=== PATIENT | female | born 1965 | race Caucasian/White ===

== ENCOUNTER 2023-09-30 09:10 | Emergency (ER) | payer MEDICARE, SELFPAY ==
[2023-09-30 09:14] VITALS: BP 138/90
[2023-09-30 09:26] VITALS: BP 146/89
--- NOTE | 2023-09-30 09:50 | ED.GENMED ---
History of Present Illness
General
Chief Complaint: Dizziness
Source: patient
Exam Limitations: none
Time Seen by Provider: 09/30/23 09:28
Nursing documentation reviewed up to this point in time: agreed with
Travel History
Have you had any contact with someone who has COVID-19?: No
Do you have any symptoms of coronavirus? Fever > 100 degrees, chills, cough, shortness of breath, sore throat, loss of taste or smell, muscle aches, or headache?: No
History of Present Illness
History of Present Illness:
58-year-old female with medical history of high blood pressure and multiple mouth surgeries of the past few months presenting to the emergency department today with concerns of lightheadedness and generalized weakness and fatigue. She claims that
she has had multiple mouth surgeries to dental issues and denture placement over the past few months and is lost roughly 70 pounds in the last 6 to 7 months. She claims that she has been able to tolerate liquids but every time she tries to tolerate
foods she will vomit. She has seen her primary care doctor for this who told her to come to the ER. Denies seeing a GI doctor. Denies any chest pain shortness of breath no abdominal pain no changes in bowel movements no urinary symptoms.
Review of Systems
Review of Systems
Allergies reviewed?: Yes
All Other Systems: ROS reviewed and negative except as documented in HPI and ROS
Phy Exam
Physical Exam
Physical Exam:
GENERAL: Alert , in no apparent distress
EYE: pupils equal and reactive
NECK: Supple, no significant adenopathy.
ENT: o/p clr, mmm.
CARDIAC: Regular rate and rhythm .
LUNGS: Clear breath sounds bilaterally, no acute respiratory distress, no wheezes/rales/rhonchi
ABDOMEN: Soft, without focal tenderness, no r/g, no cvat
NEUROLOGICAL: Alert and oriented, no focal neuro deficits
SKIN: Warm and dry, skin intact.
MUSCULOSKELETAL: No edema, well perfused.
PSYCH: Normal and appropriate interaction.
Course
Orders/Labs/Results
Orders:
Orders
09/30/23 09:43
EKG [Electrocardiogram (*1)] Urgent
Reason for Study: Vertigo / Dizzy
0.9% Sodium Chloride 1000 ml [Nss] 1,000 ml IV BOLUS
Chest [CR Chest - 2 Views ] Urgent
Comment:
Reason For Exam: cough right sided pain
09/30/23 09:44
EKG- Treatment ONCE
09/30/23 10:02
Complete Blood Count/With Diff Urgent
09/30/23 10:57
Comprehensive Metabolic Panel Urgent
Lipase Urgent
Troponin I Urgent
09/30/23 12:08
0.9% Sodium Chloride 1000 ml [Nss] 1,000 ml IV BOLUS
09/30/23 12:46
Urinalysis Reflex To Culture Urgent
Date Specimen was Collected: 09/30/23
Time Specimen was Collected: 12:44
Abnormal Lab Results
09/30/23 09/30/23 09/30/23
10:02 10:57 12:46
MCH 36.2 H pg
(27.0-31.0)
MCHC 37.3 H g/dL
(33.0-37.0)
Absolute Lymphs (auto) 0.8 L 10^3/uL
(1.2-3.4)
Lymphocytes % 16.7 L %
(20.5-51.1)
Monocytes % 11.5 H %
(1.7-9.3)
Sodium 127 L mmol/L
(135-145)
Potassium 3.3 L mmol/L
(3.5-5.1)
Chloride 90 L mmol/L
(98-107)
Glucose 101 H mg/dl
(70-99)
AST 43 H U/L
(14-36)
Lipase 387 H U/L
(23-300)
Urine Ketones Trace A
(Negative)
Urine Glucose 1+ A
(Negative)
09/30/23 10:02
09/30/23 10:57
Vital Signs
Initial and Last Documented VS:
Initial Vital Signs
Temp Pulse Resp BP Pulse Ox
97.9 F 104 22 138/90 94
09/30/23 09:14 09/30/23 09:14 09/30/23 09:14 09/30/23 09:14 09/30/23 09:14
Last Documented Vital Signs
Temp Pulse Resp BP Pulse Ox
97.9 F 79 19 131/83 97
09/30/23 09:14 09/30/23 12:15 09/30/23 12:15 09/30/23 12:00 09/30/23 12:15
MDM/Problems Addressed
MDM/Problems Addressed:
The patient is a 58-year-old female generally well-appearing no acute distress normal vital signs during my assess. Patient is concerned that she has had lightheadedness generalized weakness fatigue progressing over the past 6 with decreased oral
intake secondary to feeling that she needs to vomit after eating. Has been able to drink fluids. She believes that this is secondary to multiple mouth surgeries that she has had over the past few months due to some dental issues. She has been on
Augmentin for the past week and a half or so after her most recent surgery. Labs indicating hyponatremia and hypochloremia 127 and 90 respectively. Patient was given 2 L of fluid here. Low levels likely due to dietary changes as an outpatient.
Patient is able to tolerate by mouth and will decrease sodium intake. Otherwise no emergent finding patient will follow closely with her primary care doctor and GI for ongoing GI issues. Return precautions given.
*Critical Care Note
Total Time (30-74mins, 75-104mins- exclusive of procedures): Not Applicable
ED Attending Note
-
Portions of this chart may have been created with voice recognition software.� Occasional wrong word or��sound alike� substitutions may have occurred due to the inherent limitations of voice recognition software.
Discharge Plan
Departure
Patient Disposition: Home (Routine Discharge)
Date of Disposition: 09/30/23
Time of Disposition: 14:16
Patient with high blood pressure during this ER visit?: No
Condition: Good
Covid-19: Not Applicable
Discharge Problem:
Hyponatremia, Decreased oral intake
Instructions: Hyponatremia (DC)
Referrals:
Cassandra Etienne CRNP [Family Provider] -
Kwan Muller MD [Active] - Follow up in 1 week
Activity Restrictions/Additional Instructions:
You came to the emergency department today with concern of generalized symptoms. You are found to have a low sodium and chloride. Please increase this in your diet and follow closely with your doctor and GI for further assessment and management.
Return to the emergency department for any worsening, new or concerning symptoms.
Interventions
Interventions:
*Risk Screen - Suicide Last Done: 09/30/23 09:14
*General Assessment Last Done: 09/30/23 09:14
*Neglect/Abuse Screening Last Done: 09/30/23 09:14
*ED COVID-19 Vaccine History Last Done: 09/30/23 11:11
ED- Pulmonary Assessment Last Done: 09/30/23 11:11
ED- Neurological Assessment Last Done: 09/30/23 11:11
ED- Cardiac Assessment Last Done: 09/30/23 11:11
[2023-09-30 10:20] LABS: % Basophils 0.6 % (0-2); % Eosinophils 0.8 % (0-6); % Immature Granulocytes 0.4 % (0-0.5); % Lymphocytes 16.7 % (20.5-51.1); % Monocytes 11.5 % (1.7-9.3); Absolute Lymphocytes 0.8 10^3/uL (1.2-3.4); Absolute Monocytes 0.6 10^3/uL (0.1-0.6); Absolute Neutrophils 3.4 10^3/uL (1.4-6.5); Hematocrit 42.9 % (37.0-47.0); Mean Corp Hgb Conc. 37.3 g/dL (33.0-37.0); Mean Corpuscular Hgb 36.2 pg (27.0-31.0); Mean Corpuscular Volume 97.1 fL (81.0-99.0); Mean Platelet Volume 9.3 fL (7.4-10.4); Nucleated Red Blood Cells % 0 %; Platelet Count 155 10^3/uL (130-400); Red Blood Cell Count 4.42 10^6/uL (4.20-5.40); Red Cell Dist. Width 12.3 % (11.5-14.5); White Blood Cell Count 4.9 10^3/uL (4.8-10.8)
[2023-09-30 11:00] VITALS: BP 159/101
[2023-09-30] MEDS: NSS 1000 IV ×2 (11:07→14:21)
[2023-09-30 11:09] VITALS: BMI 24.3
[2023-09-30 11:24] LABS: ALT (SGPT) 32 U/L (0-35); AST (SGOT) 43 U/L (14-36); Albumin 4.1 g/dl (3.5-5.0); Alkaline Phosphatase 103 U/L (38-126); Blood Urea Nitrogen 10 mg/dl (7-17); Calcium 9.4 mg/dl (8.4-10.2); Carbon Dioxide 26 mmol/L (22-30); Chloride 90 mmol/L (98-107); Estimated Creatinine Clearance 114 ml/min; Glucose 101 mg/dl (70-99); Lipase 387 U/L (23-300); Potassium 3.3 mmol/L (3.5-5.1); Sodium 127 mmol/L (135-145); Total Bilirubin 1.2 mg/dl (0.2-1.3); eGFR > 60.00
[2023-09-30 11:36] LABS: Troponin I < 0.012 ng/ml
[2023-09-30 12:00] VITALS: BP 131/83
[2023-09-30 13:05] LABS: Urine Albumin Negative (Neg - Trace); Urine Bilirubin Negative (Negative); Urine Character Clear (Clear); Urine Color Straw; Urine Glucose 1+ (Negative); Urine Ketone Trace (Negative); Urine Leukocyte Negative (Negative); Urine Nitrite Negative (Negative); Urine Occult Blood Negative (Negative); Urine Urobilinogen Negative (Neg - 1+); Urine pH 6.5 (5.0-9.0)
[2023-09-30 14:11] VITALS: BP 134/98
[2023-09-30 15:00] VITALS: BP 134/73
== END 2023-09-30 15:38 | disposition home or self-care (01) ==
LOC: EMR 09:10
PROVIDERS: Physician Assistant; EMERGENCY PHYSICIAN Emergency Medicine; FAMILY PHYSICIAN Nurse Practitioner
DX: E87.1 Hypo-osmolality and hyponatremia (principal); R42 Dizziness and giddiness; R53.1 Weakness; R11.10 Vomiting, unspecified; R63.4 Abnormal weight loss; I10 Essential (primary) hypertension; Z98.890 Other specified postprocedural states
CPT/HCPCS: 99284; 96360; 96361; 71046; 80053; 81003; 83690; 84484; 85025; 93005

== ENCOUNTER 2024-04-24 09:48 | Inpatient (IN) | payer MEDICARE, SELFPAY ==
[2024-04-17] VITALS (8 sets, daily range): BP systolic 130–183; BP diastolic 81–123; BMI 17.9
[2024-04-17] MEDS: NSS 1000 IV (11:21)
[2024-04-17 11:40] LABS: % Basophils 0.2 % (0-2); % Eosinophils 0.9 % (0-6); % Immature Granulocytes 0.4 % (0-0.5); % Lymphocytes 19.7 % (20.5-51.1); % Monocytes 6.6 % (1.7-9.3); % Neutrophils 72.2 % (42.2-75.2); Absolute Eosinophils 0.1 10^3/uL (0-0.7); Absolute Lymphocytes 1.1 10^3/uL (1.2-3.4); Absolute Monocytes 0.4 10^3/uL (0.1-0.6); Absolute Neutrophils 3.9 10^3/uL (1.4-6.5); Hematocrit 41.9 % (37.0-47.0); Hemoglobin 15.5 g/dL (12.0-16.0); Mean Corpuscular Hgb 37.5 pg (27.0-31.0); Mean Corpuscular Volume 101.5 fL (81.0-99.0); Mean Platelet Volume 8.8 fL (7.4-10.4); Nucleated Red Blood Cells % 0 %; Platelet Count 175 10^3/uL (130-400); Red Blood Cell Count 4.13 10^6/uL (4.20-5.40); Red Cell Dist. Width 12.4 % (11.5-14.5); White Blood Cell Count 5.3 10^3/uL (4.8-10.8)
--- NOTE | 2024-04-17 11:57 | ED.GENMED ---
History of Present Illness
General
Chief Complaint: Weakness
Source: patient
Exam Limitations: none
Time Seen by Provider: 04/17/24 11:25
Nursing documentation reviewed up to this point in time: agreed with
History of Present Illness
History of Present Illness:
Patient presents to ED secondary to generalized weakness. Patient states that she asked her son to call 911, as she was too weak to stand up. Patient does report drinking alcohol daily and smoking. Patient states that she has not been eating well
nor drinking enough fluids. Patient states that she is currently 'working things out', so that she could feel better. Patient does not wish to divulge any other specific information at this time. However, patient denies any suicidal or homicidal
ideation. Patient reports profound generalized weakness along with decreased oral intake, and she does not have much appetite at home. Denies fever or chills. Denies nausea, vomiting, or diarrhea. Denies chest pain or shortness of breath.
Patient does report chronic coughing, but states that it has not worsened. Denies recent travel. Denies sick contact.
Review of Systems
Review of Systems
Allergies reviewed?: Yes
All Other Systems: ROS reviewed and negative except as documented in HPI and ROS
Constitutional: Reports no symptoms; Denies fever or chills
Respiratory: Reports cough; Denies trouble breathing
Cardiac: Reports no symptoms
ABD/GI: Reports anorexia; Denies abdominal pain, nausea, vomiting or diarrhea
Musculoskeletal: Reports no symptoms
Skin: Reports no symptoms
Neurological: Reports weakness; Denies headache
Phy Exam
Physical Exam
Physical Exam:
Physical Exam
General: mild distress, not acutely ill. afebrile. thin appearing, unkempt.
Head: nc/at. eomi
Neck: supple. no meningeal signs.
Heart: s1/s2 regular rate and rhythm, no murmur. equal radial pulses.
Lungs: no acute respiratory distress. clear bilaterally
Abdomen: normal bowel sounds. not tender.
Neuro: alert and oriented. no focal neurological deficits
Skin: no rash
Psychiatric: well kept. interactive and cooperative
Extremities: no edema. no calf tenderness.
Course
Orders/Labs/Results
Orders:
Orders
04/17/24 11:21
0.9% Sodium Chloride 1000 ml [Nss] 1,000 ml IV BOLUS
04/17/24 11:22
Complete Blood Count/With Diff Urgent
04/17/24 11:31
Add On- LAB Urgent
Tests Added?: magnesium, TSH to reflex free T4, alcohol, cpk
04/17/24 11:32
CR Chest - 2 Views Urgent
Comment:
Reason For Exam: cough
04/17/24 11:44
Alcohol Urgent
Comprehensive Metabolic Panel Urgent
Creatine Phosphokinase Urgent
Magnesium Urgent
TSH Reflex To Free T4 Urgent
04/17/24 12:31
Magnesium Oxide 500 mg PO NOW STA
04/17/24 13:45
CT Head W/o Iv Contrast Urgent
Comment:
Reason For Exam: ataxia
0.9% Sodium Chloride 1000 ml [Nss] 1,000 ml Mvi, Adult [Multivitamin] 10 ml Thiamine Injection 100 mg IV 100 mls/hr
04/17/24 15:18
Admit/Transfer Patient As Directed
Co-Sign Provider:
Level of Care: Observation services
Assign to:: Telemetry
Physician / Group: Cherri
Diagnosis: amb dysfunction, etoh withdrawal
Reason for Telemetry: Other
Other Reason for Telemetry: etoh withdrawal
Date to Stop Telemetry: 04/19/24
Time to Stop Telemetry: 11:00
04/17/24 15:19
PRN Pain Medication Management As Directed
May give lesser potent ordered pain med per pt: Yes
preference::
Protocol:: Medication orders for pain may be administered in a
manner that supports deferring to patient preference
when the pt is:
- Requesting an ordered lesser potent pain medication.
Least to most potent pain medications are defined
as: acetaminophen < NSAID < tramadol < opioids
(morphine, oxycodone, hydromorphone).
- Requesting a lesser dose of the same medication IF
ORDERED.
- Requesting a less intrusive route of administration
if both routes are prescribed by the provider (PO <
IV).
04/17/24 15:21
Code Status As Directed
Resuscitation Status: Full Code
04/17/24 15:32
HydrALAZINE [Apresoline] 10 mg IV Q6HPRN PRN
04/17/24 16:39
0.9% Sodium Chloride [Nss (Preservative Free)] See Protocol IV PRN PRN
Amlodipine [Norvasc] 10 mg PO DAILY
Bisacodyl [Dulcolax] 10 mg RECTAL [id number] PRN
Docusate W/Senna [Senokot-S] 1 tablet PO BIDPRN PRN
FOLic ACID [Folvite] 1 mg PO DAILY
FOLic ACID [Folvite] 1 mg 0.9% Sodium Chloride 50 ml [Nss] 50 ml IV DAILYPRN
Lactated Ringers [Lr] 1,000 ml IV 80 mls/hr
Lorazepam [Ativan] 1 mg IV Q1HPRN PRN
Lorazepam [Ativan] 1 mg PO Q2HPRN PRN
Lorazepam [Ativan] 2 mg IV Q1HPRN PRN
Losartan [Cozaar] 100 mg PO DAILY
Ondansetron Injectable [Zofran] 4 mg IV Q6HPRN PRN
Pantoprazole [Protonix] 40 mg PO DAILY
Polyethylene Glycol Powder [Miralax] 17 grams PO DAILYPRN PRN
04/17/24 16:39
Case Management Consult ONCE
Case Management Consult: Alcohol Withdrawl Risk
DIETARY CONSULT Routine
Reason for Consult: Nutrition support, possible refeeding guidelines
PSYCHIATRY CONSULT Routine
Consulting Provider: González Ponce
Was physician already notified: Yes
Reason for consult: etoh abuse, depression
Urinalysis Reflex To Culture Urgent
Urine Drug Abuse Screen Urgent
Activity As Directed
Activity Level: With Assistance
MSAS SCORE As Directed
MSAS Score 0-4: Repeat MSAS every 2 hours until 0-4 for three consecutive assessments, then every 4 hours x 48
hours.
MSAS Score 5-7: For MILD withdrawl symptoms. Repeat MSAS and RASS every 2 hours
MSAS Score 8-11: For MODERATE withdrawal symptoms. Repeat MSAS and RASS every 1 hour. Consider ICU or IMU
level of care.
MSAS Score > 11: For SEVERE withdrawal symptoms. Repeat MSAS and RASS every 1 hour. Notify provider, consider
ICU level of care.
MSAS Additional Instructions: If no improvement or no decrease in score from severe to moderate within 12
hours, consult psychiatry
MSAS Notify Provider: Notify provider if patient requires more than 10 mg of Lorazepam in eight hour period.
Neurological Checks As Directed
Frequency: Per unit guidelines
Vital Signs As Directed
Frequency: Per unit guidelines
Ot Eval And Treat Routine
Pt Eval And Treat Routine
Activity Level: With Assistance
DX Deep Vein Thrombosis Video Routine
04/17/24 18:00
Enoxaparin Sodium [Lovenox] 40 mg SC QPM
04/17/24 20:00
Magnesium Oxide 500 mg PO BID
Thiamine Injection 200 mg IV Q12
04/17/24 22:00
Buspirone [Buspar] 7.5 mg PO TID
04/18/24 Breakfast
Regular
At Your Request: Full Participation
04/18/24 06:10
Ferritin IN AM
Vitamin B12 IN AM
04/18/24 08:00
Bupropion(24Hr)Extended Releas [WELLBUTRIN XL (24 hour extended release)] 150 mg PO DAILY
Ergocalciferol [Drisdol (Vitamin D2)] 50,000 units PO WEEKLY
Escitalopram Oxalate [Lexapro] 10 mg PO DAILY
Loratadine [Claritin] 10 mg PO DAILY
Multivitamin [Theragran] 1 tablet PO DAILY
04/19/24 11:00
DC Protocol for Telemetry ONCE
04/20/24 20:00
Thiamine HCl [Vitamin B1] 100 mg PO BID
Abnormal Lab Results
04/17/24 04/17/24
11:22 11:44
RBC 4.13 L 10^6/uL
(4.20-5.40)
MCV 101.5 H fL
(81.0-99.0)
MCH 37.5 H pg
(27.0-31.0)
Absolute Lymphs (auto) 1.1 L 10^3/uL
(1.2-3.4)
Lymphocytes % 19.7 L %
(20.5-51.1)
Chloride 97 L mmol/L
(98-107)
Carbon Dioxide 21 L mmol/L
(22-30)
Magnesium 1.4 L mg/dl
(1.6-2.3)
Total Bilirubin 1.6 H mg/dl
(0.2-1.3)
AST 86 H U/L
(14-36)
ALT 36 H U/L
(0-35)
Creatine Kinase 27 L U/L
(30-135)
04/17/24 11:22
04/17/24 11:44
Vital Signs
Initial and Last Documented VS:
Initial Vital Signs
Pulse Resp
91 15
04/17/24 11:05 04/17/24 11:05
Last Documented Vital Signs
Temp Pulse Resp BP Pulse Ox
97.7 F 70 18 119/77 97
04/18/24 07:00 04/18/24 07:00 04/18/24 07:00 04/18/24 07:00 04/18/24 07:00
MDM/Problems Addressed
MDM/Problems Addressed:
History and exam concerning for significant dehydration, likely secondary to poor oral intake along with continual alcohol use. However, in light of ataxia noted after hydration, there is clinical concern for potential CVA versus Wernicke syndrome.
As such, will obtain CT head at this time, and patient will be admitted for further hydration and evaluation.
*Critical Care Note
Total Time (30-74mins, 75-104mins- exclusive of procedures): Not Applicable
ED Attending Note
-
Portions of this chart may have been created with voice recognition software.� Occasional wrong word or��sound alike� substitutions may have occurred due to the inherent limitations of voice recognition software.
Discharge Plan
Departure
Patient Disposition: Admit
Date of Disposition: 04/17/24
Time of Disposition: 14:41
Admit to: Telemetry
Presentation/result/management discussed w/ accepting MD/DO: Hospitalist
Discharge Problem:
Ataxia, Alcohol dependence
Interventions
Interventions:
*Risk Screen - Suicide Last Done: 04/17/24 11:03
*General Assessment Last Done: 04/17/24 11:04
*Neglect/Abuse Screening Last Done: 04/17/24 11:03
ED- Fall Risk Assessment Last Done: 04/17/24 11:08
*ED COVID-19 Vaccine History Last Done: 04/17/24 11:04
*Nursing Disposition Last Done: 04/17/24 16:34
ED- Cardiac Assessment Last Done: 04/17/24 11:09
ED- Neurological Assessment Last Done: 04/17/24 11:09
ED- Pulmonary Assessment Last Done: 04/17/24 11:09
Discharge Date and Time
Discharge Date/Time: 04/17/24 16:43
[2024-04-17 12:27] LABS: ALT (SGPT) 36 U/L (0-35); AST (SGOT) 86 U/L (14-36); Albumin 3.5 g/dl (3.5-5.0); Alcohol None Detected; Alkaline Phosphatase 105 U/L (38-126); Blood Urea Nitrogen 16 mg/dl (7-17); Calcium 9.1 mg/dl (8.4-10.2); Carbon Dioxide 21 mmol/L (22-30); Chloride 97 mmol/L (98-107); Creatine Phosphokinase 27 U/L (30-135); Estimated Creatinine Clearance 80 ml/min; Glucose 84 mg/dl (70-99); Magnesium 1.4 mg/dl (1.6-2.3); Potassium 3.6 mmol/L (3.5-5.1); Sodium 135 mmol/L (135-145); Total Bilirubin 1.6 mg/dl (0.2-1.3); eGFR > 60.00
[2024-04-17] MEDS: MAGNESIUM OXIDE 500 MG PO ×2 (12:35→20:16)
[2024-04-17 12:55] LABS: TSH Reflex To Free T4 1.49 uIU/ml (0.47-4.68)
[2024-04-17] MEDS: MULTIVITAMIN 1011 ML IV (14:39)
[2024-04-17] MEDS: MULTIVITAMIN 1011 MG IV (14:39)
--- NOTE | 2024-04-17 14:39 | PHANOTE ---
med rec tech(04/17/24)-Attempted to interview patient, but she does not know her medications. She did states she takes all her medications in the morning. Called spouse, he was also unable to confirm medications. Used pharmacy records to create med
list, unable to confirm due to lack of [facility] records.
--- NOTE | 2024-04-17 15:03 | HPS.HSE ---
Family Physician
-
Family Physician: NOT KNOW UNKNOWN - PT DOES
Chief Complaint
-
Weakness and gait instability, worsening recently; alcohol concerns
History of Present Illness
58yo F with PMH ETOH abuse, Anxiety/Depression, HTN, Tobacco abuse who presents to ER with complaint of weakness ongoing for months but worsening more recently. Pt lives at home with her son and uses a walker/cane for ambulation. She reports
increasing gen weakness in LE with associated decreased PO intake. Denies actual falls or injuries but states 'she has been careful.' Pt reports worsening depression and generalized confusion, 'my mind is hazy.' Pt does drink about 3-4/7 days a week
approximately 3 glasses of wine per day, with last drink suspected last night. She does endorse interest in quitting. Denies fever, chills, orthostatic complaint, chest pain, palps, wheezing, cough, abd pain, n/v/d/c, dysuria, calf or leg pain.
Pt also cannot recall her medications, but states she has only been taking her antihypertensives, denying any recent med changes.
ER course: Presents with HR 91->77, BP 183/108, other V.S.S. CBC wnl, Hgb 15.5, MCV 101.8. BUN/Cr 16/0.7, Mag 1.4, AST/ALT 86/36, Tbili 1.6. S/P banana bag, 1LNS, and Magox 500mg PO in ER.
Medical History
Past Medical History
Past Medical History: Reports Other (ETOH abuse, Anxiety/Depression, HTN, Tobacco abuse)
Past Surgical History: Reports Other (multiple oral surgeries (cannot further describe))
Social History
Tobacco: Smoker (1/2 PPD x ~40 yrs)
Alcohol: Daily (3-4 days per week, approx 3 glasses of wine per day)
Drug: Marijuana
Living: With Family (son)
Family History
Family History: Other (Father ; does not know recall any pertinent history. )
Allergies / Home Medications
Allergies reflects when Allergies were last updated in [employer].
Home Medications with original date entered in [employer]
Allergy/Medication List:
Allergies
Allergy/AdvReac Type Severity Reaction Status Date / Time
No Known Allergies Allergy Verified 04/17/24 10:59
Home Medications
amlodipine 10 mg tablet 10 mg PO DAILY 04/17/24
bupropion HCl 150 mg 24 hr tablet, extended release 150 mg PO DAILY 04/17/24
buspirone 7.5 mg tablet 7.5 mg PO TID 04/17/24
ergocalciferol (vitamin D2) 1,250 mcg (50,000 unit) capsule (Vitamin D2) 1,250 mcg PO QWEEK 04/17/24
escitalopram oxalate 10 mg tablet 10 mg PO DAILY 04/17/24
fexofenadine 180 mg tablet 180 mg PO DAILY 04/17/24
losartan 100 mg tablet 100 mg PO DAILY 04/17/24
pantoprazole 40 mg tablet,delayed release 40 mg PO DAILY 04/17/24
Review of Systems
-
A 12 point ROS was completed and negative except as noted: Yes
Physical Exam
Vital Signs
Vital Signs
Temp Pulse Resp BP Pulse Ox
98.8 F 77 15 183/108 98
04/17/24 11:08 04/17/24 13:00 04/17/24 13:00 04/17/24 13:00 04/17/24 11:09
Physical Exam
General: Well Developed, Well Nourished and No Apparent Distress
HEENT: NormoCephalic, Moist mucous membranes and Atraumatic
Respiratory: Clear
Cardiac: S1/S2 and Regular Rhythm; No Murmur or Rub
GI: Soft, Non Tender, Non Distended and Normal Bowel Sounds; No Organomegaly
Rectal: Deferred by Provider
Genito-urinary: No costovertebral tender; No Moran
Musculoskeletal: No Clubbing, No Cyanosis and No Edema
Skin: No Rash
Neuro: Awake, Alert, Oriented, No Motor Deficits, No Sensory Deficits and Other (+horizontal nystagmus. No tongue deviation. Uvula midline. Finger to nose mildly diminished symmetrically. MSK 5/5 throughout. Slow to respond with speech easily
understandable ); No Facial Droop
Hematologic/Lymphatic: No Lymphadenopathy
Psych: Calm and Depressed
Laboratory Results
-
04/17/24 11:22
04/17/24 11:44
Laboratory Results
Total Bilirubin 1.6 mg/dl (0.2-1.3) H 04/17/24 11:44
AST 86 U/L (14-36) H 04/17/24 11:44
ALT 36 U/L (0-35) H 04/17/24 11:44
Alkaline Phosphatase 105 U/L (38-126) 04/17/24 11:44
Impression/Plan
-
Ambulatory Dysfunction
- Pt denies any falls or traumatic injuries. Uses walker/cane at home
- CT brain with mild diffuse cerebral and cerebellar atrophy, no acute findings
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
- Basic labs relatively unremarkable. TSH wnl. Check B12 levels noting macrocytosis.
- Check UA with reflex for completeness
- Defer MRI testing as this time
- Check orthostatics. Start LR @ 80cc/hr x 1L
- PT/OT consult
- CM consult
Alcohol Abuse
- Drinking 3-4 days per week, 3 glasses of wine per day, last drink 04/16 night
- ETOH level (-) on admission
- Suspect ETOH contributing to global cerebellar dysfunction and problem above
- Cessation discussed. Pt is agreeable
- MV/FA/Thiamine. Ativan per [facility] protocol
- Psych and CM consult
Elevated LFTs
- Tbili 1.6, AST/ALT 86/36. CPK wnl
- Likely alcoholic hepatitis.
- Check viral hepatitis panel for completeness
- Trend with IVF.
Hypomagnesemia - Mag 1.4, Replete and trend.
Macrocytosis
- Hgb 15.5 g/dL. MCV 101.8.
- Check iron studies, b12, folate
Anxiety/Depression
- Reports increasing depression, not taking her medications
- Resume home lexapro, wellbutrin, buspirone
- Consult Psych
Uncontrolled HTN
- BP 183/108, likely exacerbated by withdrawal effect
- Restart amlodipine 10mg daily and losartan 100mg daily, will dose now
- Add prn hydralazine SBP > 170mmHg considering additional agents as needed
Diet: Regular
DVT Ppx: Lovenox
Code Status: Full
--- NOTE | 2024-04-17 16:21 | CM ---
CM reviewed patient's chart. Spoke with patient at bedside. CM introduced self and role. Patient is somewhat forgetful and slow to respond.
PCP: Dr. Contreras Winston
Pharmacy: [facility] in [facility]
Living situation: Patient lives with her and son. She lives in a multi-level home. 2 steps, landing and 1 step to enter. She has her mom for support as well.
Finances: Patient denies any social insecurities. She is able to afford her housing, clothing, medications, food, utilities and transportation. She works FT a [employer].
DME/Ambulation: Patient ambulates independently. She owns a walker.
Transportation: Patient's or son will provide transportation once she is discharged. Patient drives.
Agreeable to home health care?: Yes, if needed.
ANTICIPATED DISCHARGE DISPOSITION:
Home with and son, when medically cleared.
CM will continue to follow case and available for further assistance.
[2024-04-17] MEDS: COZAAR 100 MG PO (17:28)
[2024-04-17] MEDS: FOLVITE 1 MG PO (17:28)
[2024-04-17] MEDS: PROTONIX 40 MG PO (17:28)
[2024-04-17] MEDS: LOVENOX 40 MG SC (17:28)
[2024-04-17] MEDS: NORVASC 10 MG PO (17:28)
[2024-04-17] MEDS: NICODERM TRANSDERMAL TRANSDERM (17:33)
[2024-04-17] MEDS: THIAMINE INJECTION 200 MG IV (20:17)
[2024-04-17] MEDS: BUSPAR 7.5 MG PO (22:37)
[2024-04-18] VITALS (7 sets, daily range): BP systolic 79–119; BP diastolic 55–81; PULSE 80–94; BMI 17.9
[2024-04-18] MEDS: LR IV (01:00)
[2024-04-18] MEDS: LR 1000 IV (01:00)
--- NOTE | 2024-04-18 06:51 | W.PN.HOSP.TC ---
Today's Communication/Plan
-
MSAS protocol
thiamine supplementation
PT/OT
depression medications as per psych
Assessment / Plan
Assessment / Plan
Physical Exam
General: No acute distress appears comfortable at this time
HEENT: NormoCephalic, Moist mucous membranes and Atraumatic
Respiratory: Clear
Cardiac: S1/S2 and Regular Rhythm; No Murmur or Rub
GI: Soft, Non Tender, Non Distended and Normal Bowel Sounds; No Organomegaly
Musculoskeletal: No Clubbing, No Cyanosis and No Edema
Skin: No Rash
Neuro: AOx3 flat affect
Psych: Calm, Depressed
58F ETOH abuse anxiety/depression HTN Tobacco abuse
Ambulatory Dysfunction
- Uses walker/cane at home
- CT brain with mild diffuse cerebral and cerebellar atrophy, no acute findings
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
- Basic labs relatively unremarkable. TSH wnl. B12 wnl
- UA notes pyuria otherwise appears asymptomatic UT, follow up urine cx
- completed IVF
- PT/OT consult appreciated home health vs not needs
- CM consult
Alcohol Abuse
- Drinking 3-4 days per week, 3 glasses of wine per day, last drink 04/16 night
- ETOH level (-) on admission
- Suspect ETOH contributing to global cerebellar dysfunction and problem above
- ETOH cessation advised
- MV/FA/Thiamine. Ativan per CIWA protocol
- Psych and CM consult appreciated
Mild Elevated LFTs
- Tbili 1.6, AST/ALT 86/36. CPK wnl
- Likely alcoholic hepatitis.
- viral hepatitis panel result pending
- monitor
Hypomagnesemia
monitor and replete as necessary
Macrocytosis
b12, folate wnl
iron studies appreciated Iron non-deficient
Anxiety/Depression
- Reports increasing depression, not taking her medications
- Resume home lexapro, wellbutrin, buspirone
- Consult Psych appreciated
Uncontrolled HTN
-likely exacerbated by withdrawal effect
- cont amlodipine 10mg daily and losartan 100mg daily
-prn Hydralazine
BMI 17.9 underweight
encourage good nutrition oral intake
Diet: Regular
DVT Ppx: Lovenox
Code Status: Full
I spent a total of 50 minutes with the patient or on the floor. More than 50% of this time involved counseling and coordination of care.
Anticipated Discharge: 24 - 48 hours
Subjective/Interval History
-
Date of Service: April 18, 2024
No acute distress, reports feeling well. Appetite improved.
Objective Data
-
Labs:
Laboratory Results
04/18/24
06:10
Sodium Pending
Potassium Pending
Chloride Pending
Carbon Dioxide Pending
BUN Pending
Creatinine Pending
Glucose Pending
Calcium Pending
Total Bilirubin Pending
AST Pending
ALT Pending
Alkaline Phosphatase Pending
Vital Signs:
Vital Signs
Temp Pulse Resp BP Pulse Ox
97.4 F 80 15 113/73 98
04/18/24 03:33 04/18/24 03:33 04/18/24 03:33 04/18/24 03:33 04/18/24 03:33
I&O
04/16/24 04/17/24 04/18/24
06:59 06:59 06:59
Intake Total 1480 / 1480
Balance 1480 / 1480
[2024-04-18] MEDS: DRISDOL (VITAMIN D2) 50000 UNITS PO (07:49)
[2024-04-18] MEDS: PROTONIX 40 MG PO (07:49)
[2024-04-18] MEDS: BUSPAR 7.5 MG PO ×3 (07:49→21:50)
[2024-04-18] MEDS: CLARITIN 10 MG PO (07:49)
[2024-04-18] MEDS: WELLBUTRIN XL (24 hour extended release) 150 MG PO (07:49)
[2024-04-18] MEDS: NORVASC 10 MG PO (07:49)
[2024-04-18] MEDS: COZAAR 100 MG PO (07:50)
[2024-04-18] MEDS: FOLVITE 1 MG PO (07:50)
[2024-04-18] MEDS: LEXAPRO 10 MG PO (07:50)
[2024-04-18] MEDS: THIAMINE INJECTION 200 MG IV ×2 (07:50→20:16)
[2024-04-18] MEDS: MAGNESIUM OXIDE 500 MG PO ×2 (07:50→20:16)
[2024-04-18] MEDS: THERAGRAN 1 TABLET PO (07:51)
[2024-04-18] MEDS: NICODERM TRANSDERMAL TRANSDERM (07:55)
[2024-04-18 08:14] LABS: Vitamin B12 843 pg/ml (239-931)
[2024-04-18 09:14] LABS: ALT (SGPT) 35 U/L (0-35); AST (SGOT) 83 U/L (14-36); Albumin 3.2 g/dl (3.5-5.0); Alkaline Phosphatase 94 U/L (38-126); Blood Urea Nitrogen 11 mg/dl (7-17); Calcium 9.4 mg/dl (8.4-10.2); Carbon Dioxide 25 mmol/L (22-30); Chloride 99 mmol/L (98-107); Direct Bilirubin 0.6 mg/dl (0.0-0.4); Estimated Creatinine Clearance 94 ml/min; Glucose 65 mg/dl (70-99); Iron 91 ug/dl (37-170); Magnesium 1.6 mg/dl (1.6-2.3); Phosphorus 3.1 mg/dl (2.5-4.5); Potassium 3.7 mmol/L (3.5-5.1); Sodium 137 mmol/L (135-145); Total Bilirubin 1.4 mg/dl (0.2-1.3); Total Protein 6.4 g/dl (6.3-8.2); eGFR > 60.00
[2024-04-18 09:23] LABS: Percent Saturation 50 % (20-50); Total Iron Binding Capacity 182 ug/dl (265-497)
[2024-04-18 09:59] LABS: Urine Albumin Negative (Neg - Trace); Urine Bilirubin Negative (Negative); Urine Character Slightly Cloudy (Clear); Urine Color Yellow; Urine Glucose Negative (Negative); Urine Ketone Negative (Negative); Urine Leukocyte 2+ (Negative); Urine Nitrite Negative (Negative); Urine Occult Blood Trace (Negative); Urine Urobilinogen Negative (Neg - 1+); Urine pH 6.5 (5.0-9.0)
[2024-04-18 10:17] LABS: Amphetamines Negative (Negative); Barbiturates Negative (Negative); Benzodiazepines Negative (Negative)
[2024-04-18 10:18] LABS: Buprenorphine Negative (Negative); Cocaine Negative (Negative); Marijuana Negative (Negative); Methadone Negative (Negative); Methamphetamines Negative (Negative); Opiates Negative (Negative); Phencyclidine Negative (Negative); Tricyclic Antidepressants Negative (Negative)
[2024-04-18 10:19] LABS: Folate 11.6 ng/ml (2.76-20)
[2024-04-18 10:35] LABS: Urine Bacteria Many (Negative); Urine Red Blood Cell 0-2 /HPF (0-2); Urine White Cell >100 /HPF (0-5)
--- NOTE | 2024-04-18 11:16 | CM ---
Reviewed the chart notes and spoke with the patient at the bedside. The patient is admitted under observational status. The observation letter was provided and explained. The patient had no questions with regards to the letter.
--- NOTE | 2024-04-18 12:26 | W.PN.UPDATE ---
Update Note
Progress Note Update
Psychiatric Evaluation dictated.
Patient admitted with weakness and gait instability. She admits to being depressed worrying about paying bills as well as medical concerns. She admits to dysphoria and anhedonia but denies hopelessness or suicidal thoughts. Appetite is poor and she
has lost weight; at one point was 200 lb and now is 128 lb. She is not sure how recent the weight loss has been. She also has significant insomnia.
She reluctantly admits to drinking on daily basis perhaps 2-4 glasses of wine or equivalent; admits also to occasional use of marijuana bur present drug screen is negative.
Cognitively has poor general knowledge, poor calculation skills ans diminished immediate recall. CAT shows some cortical and cerebellar atrophy.
Medical W/U in progress
For now would continue present psychotropic meds.
Rehab for alcohol abuse would help but presently she is reluctant.
Will F/U
[2024-04-18] MEDS: LOVENOX 40 MG SC (17:00)
[2024-04-18 20:09] LABS: Hepatitis B Surface Antigen Negative (Negative)
[2024-04-18 20:27] LABS: Hepatitis B Core Ab, Total Negative (Negative); Hepatitis B Surface Antibody Negative; Hepatitis C Antibody Negative (Negative)
[2024-04-18 20:46] LABS: Hepatitis A Antibody, Total Negative (Negative)
[2024-04-19 03:00] VITALS: BP 110/74
[2024-04-19 06:25] LABS: Hematocrit 35.2 % (37.0-47.0); Mean Corp Hgb Conc. 36.9 g/dL (33.0-37.0); Mean Corpuscular Hgb 36.9 pg (27.0-31.0); Mean Platelet Volume 8.6 fL (7.4-10.4); Platelet Count 159 10^3/uL (130-400); Red Blood Cell Count 3.52 10^6/uL (4.20-5.40); Red Cell Dist. Width 12.3 % (11.5-14.5); White Blood Cell Count 4.7 10^3/uL (4.8-10.8)
[2024-04-19 06:47] LABS: ALT (SGPT) 29 U/L (0-35); AST (SGOT) 59 U/L (14-36); Alkaline Phosphatase 87 U/L (38-126); Blood Urea Nitrogen 9 mg/dl (7-17); Calcium 9.1 mg/dl (8.4-10.2); Carbon Dioxide 26 mmol/L (22-30); Chloride 102 mmol/L (98-107); Estimated Creatinine Clearance 94 ml/min; Glucose 92 mg/dl (70-99); Magnesium 1.7 mg/dl (1.6-2.3); Phosphorus 3.3 mg/dl (2.5-4.5); Potassium 2.9 mmol/L (3.5-5.1); Sodium 137 mmol/L (135-145); Total Protein 6.4 g/dl (6.3-8.2); eGFR > 60.00
--- NOTE | 2024-04-19 07:25 | W.PN.HOSP.TC ---
Today's Communication/Plan
-
monitor and replete lytes as necessary
check CT chest/abd/pelvis
depression medications as per Psych
PT/OT
Assessment / Plan
Assessment / Plan
Physical Exam
General: No acute distress appears comfortable at this time
HEENT: NormoCephalic, Moist mucous membranes and Atraumatic
Respiratory: Clear
Cardiac: S1/S2 and Regular Rhythm; No Murmur or Rub
GI: Soft, Non Tender, Non Distended and Normal Bowel Sounds; No Organomegaly
Musculoskeletal: No Clubbing, No Cyanosis and No Edema
Skin: No Rash
Neuro: AOx3 flat affect
Psych: Calm, Depressed
58F ETOH abuse anxiety/depression HTN Tobacco abuse
Ambulatory Dysfunction
- Uses walker/cane at home
- CT brain with mild diffuse cerebral and cerebellar atrophy, no acute findings
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
- Basic labs relatively unremarkable. TSH wnl. B12 wnl
- UA notes pyuria otherwise appears asymptomatic UT, follow up urine cx
- completed IVF
- PT/OT consult appreciated home health vs not needs
- CM consult
Alcohol Abuse
- Drinking 3-4 days per week, 3 glasses of wine per day, last drink 04/16 night
- ETOH level (-) on admission
- Suspect ETOH contributing to global cerebellar dysfunction and problem above
- ETOH cessation advised
- MV/FA/Thiamine. Ativan per CIWA protocol
- Psych and CM consult appreciated
Endorses 20 lb weight loss unintentional
-check CT chest/abd/pelvis w contrast
Mild Elevated LFTs
- Tbili 1.6, AST/ALT 86/36. CPK wnl
- Likely alcoholic hepatitis.
- viral hepatitis panel result pending
- monitor
Hypomagnesemia
monitor and replete as necessary
Macrocytosis
b12, folate wnl
iron studies appreciated Iron non-deficient
Anxiety/Depression
- Reports increasing depression, not taking her medications
- Resume home lexapro,
- Consult Psych appreciated buspirone discontinued in favor of increased wellbutrin
Uncontrolled HTN
-likely exacerbated by withdrawal effect
- cont amlodipine 10mg daily and losartan 100mg daily
-prn Hydralazine
BMI 17.9 underweight
encourage good nutrition oral intake
Diet: Regular
DVT Ppx: Lovenox
Code Status: Full
I spent a total of 40 minutes with the patient or on the floor. More than 50% of this time involved counseling and coordination of care.
Anticipated Discharge: 24 - 48 hours
Subjective/Interval History
-
Date of Service: April 19, 2024
no significant ETOH withdrawal symptoms. Patient endorses general malaise and poor appetite.
Objective Data
-
Labs:
Laboratory Results
04/19/24
06:02
WBC 4.7 L
Hgb 13.0
Hct 35.2 L
Plt Count 159
Sodium 137
Potassium 2.9 L
Chloride 102
Carbon Dioxide 26
BUN 9
Creatinine 0.6
Glucose 92
Calcium 9.1
Total Bilirubin 1.0
AST 59 H
ALT 29
Alkaline Phosphatase 87
Vital Signs:
Vital Signs
Temp Pulse Resp BP Pulse Ox
97.7 F 73 20 110/74 95
04/19/24 03:00 04/19/24 03:00 04/19/24 03:00 04/19/24 03:00 04/19/24 03:00
I&O
04/18/24 04/19/24 04/20/24
06:59 06:59 06:59
Intake Total 1480 / 1480 720 / 720
Balance 1480 / 1480 720 / 720
[2024-04-19 07:30] VITALS: BP 108/69
[2024-04-19] MEDS: THERAGRAN 1 TABLET PO (08:19)
[2024-04-19] MEDS: CLARITIN 10 MG PO (08:19)
[2024-04-19] MEDS: WELLBUTRIN XL (24 hour extended release) 150 MG PO (08:20)
[2024-04-19] MEDS: PROTONIX 40 MG PO (08:20)
[2024-04-19] MEDS: FOLVITE 1 MG PO (08:20)
[2024-04-19] MEDS: LEXAPRO 10 MG PO (08:20)
[2024-04-19] MEDS: MAGNESIUM OXIDE 500 MG PO ×2 (08:20→19:49)
[2024-04-19] MEDS: BUSPAR 7.5 MG PO (08:20)
[2024-04-19] MEDS: NORVASC PO (08:20)
[2024-04-19] MEDS: THIAMINE INJECTION 200 MG IV ×2 (08:21→19:49)
[2024-04-19] MEDS: COZAAR PO (08:26)
[2024-04-19] MEDS: NICODERM TRANSDERMAL 14 MG TRANSDERM (08:27)
--- NOTE | 2024-04-19 10:55 | W.PN.UPDATE ---
Update Note
Progress Note Update
Patient reports feeling unwell, tired and having no energy. Does not have tremors or other symptoms of withdrawal.
Of significance also is poor appetite and weight loss. i wonder if there is possibly some underlying medical condition.
I will D/C the Buspar as it could potentially cause tiredness and increase the Wellbutrin XL to 300 mg.
Will continue to F/U.
[2024-04-19] MEDS: KCL 40 MEQ PO (11:26)
[2024-04-19] MEDS: KCL 270 MEQ IV (11:52)
[2024-04-19 12:18] LABS: Lipase 122 U/L (23-300)
[2024-04-19] MEDS: OMNIPAQUE 50 ML PO (12:26)
[2024-04-19 15:32] LABS: INR 0.98
[2024-04-19 17:10] VITALS: BP 155/99
[2024-04-19] MEDS: LOVENOX 40 MG SC (17:10)
[2024-04-19] MEDS: KCL 20 MEQ PO (19:48)
[2024-04-19] MEDS: MYLICON 80 MG PO (20:30)
[2024-04-19 23:34] VITALS: BP 120/81
[2024-04-20 07:00] VITALS: BP 118/82
--- NOTE | 2024-04-20 07:20 | W.PN.HOSP.TC ---
Today's Communication/Plan
-
blood pressure control
nephro eval possible pheo
antidepressants as per psych
Assessment / Plan
Assessment / Plan
Physical Exam
General: No acute distress appears comfortable at this time
HEENT: NormoCephalic, Moist mucous membranes and Atraumatic
Respiratory: Clear
Cardiac: S1/S2 and Regular Rhythm; No Murmur or Rub
GI: Soft, Non Tender, Non Distended and Normal Bowel Sounds; No Organomegaly
Musculoskeletal: No Clubbing, No Cyanosis and No Edema
Skin: No Rash
Neuro: AOx3 flat affect
Psych: Calm, Depressed
58F ETOH abuse anxiety/depression HTN Tobacco abuse
Ambulatory Dysfunction
- Uses walker/cane at home
- CT brain with mild diffuse cerebral and cerebellar atrophy, no acute findings
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
- Basic labs relatively unremarkable. TSH wnl. B12 wnl
- UA notes pyuria otherwise appears asymptomatic UT, follow up urine cx
- completed IVF
- PT/OT consult appreciated home health vs not needs
- CM consult
Alcohol Abuse
- Drinking 3-4 days per week, 3 glasses of wine per day, last drink 04/16 night
- ETOH level (-) on admission
- Suspect ETOH contributing to global cerebellar dysfunction and problem above
- ETOH cessation advised
- MV/FA/Thiamine. Ativan per CIWA protocol
- Psych and CM consult appreciated
Endorses 20 lb weight loss unintentional
CT chest/abd/pelvis w contrast appreciated
-Mild emphysematous lung changes.
-Multiple small pulmonary nodules, as described, measuring up to 5.3 mm. Some of the nodules appear hyperdense and/or calcified, consistent with calcified granulomas. Recommend follow-up in one year.
-Superior right hilar margin mild adenopathy measuring 1.4 cm. Nonspecific.
-Fatty infiltration of liver.
-Heterogeneous complex right adrenal mass measuring up to 2.6 cm. Nonspecific. Possible myelolipoma. Other possible considerations may include changes related to previous infection and/or hemorrhage. Adrenal tumor, such as pheochromocytoma may
also be considered in the proper clinical setting.
-Mild sigmoid diverticulosis. No evidence of acute diverticulitis. Disproportionate degree of slightly asymmetric wall thickening. Although likely related to inflammatory changes of diverticulosis, it would be difficult to exclude an underlying
neoplastic process with certainty. Recommend correlation with colonoscopy.
Possible Pheo, Nephro eval requested
Mild Elevated LFTs
- Likely alcoholic hepatitis.
- viral hepatitis panel neg
- monitor
Hypomagnesemia
monitor and replete as necessary
Macrocytosis
b12, folate wnl
iron studies appreciated Iron non-deficient
Anxiety/Depression
- Reports increasing depression, not taking her medications
- Resume home lexapro,
- Consult Psych appreciated buspirone discontinued in favor of increased wellbutrin later reduced due to concerns regarding possible Pheo
HTN
-likely exacerbated by ETOH withdrawal effect since improved
- cont amlodipine 10mg daily and losartan 100mg daily
-prn Hydralazine
BMI 17.9 underweight
encourage good nutrition oral intake
Diet: Regular
DVT Ppx: Lovenox
Code Status: Full
I spent a total of 40 minutes with the patient or on the floor. More than 50% of this time involved counseling and coordination of care.
Anticipated Discharge: 24 - 48 hours
Subjective/Interval History
-
Date of Service: April 20, 2024
general malaise persists. no acute distress. Appears otherwise comfortable.
Objective Data
-
Labs:
Laboratory Results
04/20/24
07:04
WBC Pending
Hgb Pending
Hct Pending
Plt Count Pending
Sodium Pending
Potassium Pending
Chloride Pending
Carbon Dioxide Pending
BUN Pending
Creatinine Pending
Glucose Pending
Calcium Pending
Total Bilirubin Pending
AST Pending
ALT Pending
Alkaline Phosphatase Pending
Vital Signs:
Vital Signs
Temp Pulse Resp BP Pulse Ox
97.6 F 77 17 120/81 95
04/19/24 23:34 04/19/24 23:34 04/19/24 23:34 04/19/24 23:34 04/19/24 23:34
I&O
04/19/24 04/20/24 04/21/24
06:59 06:59 06:59
Intake Total 720 / 720 840 / 840
Balance 720 / 720 840 / 840
[2024-04-20 07:58] LABS: Hematocrit 37.2 % (37.0-47.0); Hemoglobin 13.2 g/dL (12.0-16.0); Mean Corp Hgb Conc. 35.5 g/dL (33.0-37.0); Mean Corpuscular Hgb 36.1 pg (27.0-31.0); Mean Corpuscular Volume 101.6 fL (81.0-99.0); Mean Platelet Volume 8.9 fL (7.4-10.4); Platelet Count 162 10^3/uL (130-400); Red Blood Cell Count 3.66 10^6/uL (4.20-5.40); Red Cell Dist. Width 12.4 % (11.5-14.5); White Blood Cell Count 4.4 10^3/uL (4.8-10.8)
[2024-04-20 08:45] LABS: ALT (SGPT) 30 U/L (0-35); AST (SGOT) 53 U/L (14-36); Alkaline Phosphatase 94 U/L (38-126); Blood Urea Nitrogen 6 mg/dl (7-17); Calcium 9.2 mg/dl (8.4-10.2); Chloride 106 mmol/L (98-107); Estimated Creatinine Clearance 80 ml/min; Glucose 92 mg/dl (70-99); Magnesium 1.7 mg/dl (1.6-2.3); Phosphorus 3.1 mg/dl (2.5-4.5); Potassium 4.1 mmol/L (3.5-5.1); Sodium 139 mmol/L (135-145); Total Bilirubin 0.9 mg/dl (0.2-1.3); Total Protein 6.2 g/dl (6.3-8.2); eGFR > 60.00
[2024-04-20 09:02] LABS: Carbon Dioxide 24 mmol/L (22-30)
[2024-04-20] MEDS: MAGNESIUM OXIDE 500 MG PO ×2 (10:12→20:03)
[2024-04-20] MEDS: CLARITIN 10 MG PO (10:12)
[2024-04-20] MEDS: NORVASC PO (10:12)
[2024-04-20] MEDS: PROTONIX 40 MG PO (10:12)
[2024-04-20] MEDS: COZAAR 100 MG PO (10:13)
[2024-04-20] MEDS: LEXAPRO 10 MG PO (10:13)
[2024-04-20] MEDS: THERAGRAN 1 TABLET PO (10:13)
[2024-04-20] MEDS: WELLBUTRIN XL (24 hour extended release) 300 MG PO (10:13)
[2024-04-20] MEDS: FOLVITE 1 MG PO (10:13)
[2024-04-20] MEDS: KCL 20 MEQ PO ×2 (10:14→20:04)
[2024-04-20] MEDS: NICODERM TRANSDERMAL 14 MG TRANSDERM (10:14)
--- NOTE | 2024-04-20 10:51 | CM ---
Reviewed chart, patient functioning near baseline level. She still feels like she would want to return home with her family when she is stable and does not anticipate any needs at time of discharge.
Plan: Case management will continue to follow and assist with discharge planning. Home when stable.
[2024-04-20] MEDS: THIAMINE INJECTION 200 MG IV (11:48)
--- NOTE | 2024-04-20 12:43 | W.PN.UPDATE ---
Update Note
Progress Note Update
patient seen chart reviewed. spoke with nursing and with dr morales who saw patient yesterday. dr morales expressed concern re an underlying medical issue as cause for patient's depression and anxiety. noted abd/chest/ pelvic cat scan w several ?
re serious underlying medical illness in the lung gut and adrenal gland. patient does have symptomatology that could suggest pheo including she believes episodes of sweating flushing palpitation nausea vomiting fatigue panic like sensation which
have come and gone. she is a life long smoker and has been sob at times. re etoh use. she is not at this point appearing to be in a wd state. has not required prn ativan. dr morales dc'ed buspar and increased wellbutrin. i am concerned if she
does have pheo ....wellbutrin can cause adverse rxn and it can also confound results of screening tests for pheo will cut wellbutrin back to 150 mg for now pending discussion w hospitalist. would also check ecg as the only ecg on this chart has qtc
of 499 and lexapro can inc qtc. will follow
[2024-04-20 13:49] VITALS: BP 115/81; BP 90/68; BP 94/67; PULSE 102; PULSE 84; O2SAT 98
[2024-04-20 15:30] VITALS: BP 102/71
--- NOTE | 2024-04-20 17:12 | W.CON.NEPH ---
Consultation
-
Date/Time Consultation Requested: 04/20/24 1500
Date/Time Consultation Performed: 04/20/24 1600
Requesting Provider: Dr. Luevano
Performing Provider: Dr Ramos
Reason for Consultation: HTN
Medical History
-
Chief Complaint: Imbalance
History of Present Illness:
58yo F with PMH ETOH abuse, Anxiety/Depression, HTN, Tobacco abuse who presents to ER with complaint of weakness ongoing for months but worsening more recently. Pt lives at home with her son and uses a walker/cane for ambulation. She reports
increasing gen weakness in LE with associated decreased PO intake. Denies actual falls or injuries. Pt reports worsening depression and generalized confusion. Pt does drink about 3-4/7 days a week approximately 3 glasses of wine per day, with last
drink suspected day prior to admission. She does report that she occasionally has some jitteriness as well as shakiness. She denies having any flushing.
Pt also cannot recall her medications, but states she has only been taking her antihypertensives, denying any recent med changes.
Past Medical History
Alcohol use, anxiety depression, hypertension, oral surgery
Social History
Tobacco: Smoker
Alcohol: Daily
Drug: Marijuana
Family History
Unknown patient does not know
Allergies / Home Medications
Allergy/AdvReac Type Severity Reaction Status Date / Time
No Known Allergies Allergy Verified 04/17/24 10:59
�Medication �Instructions �Recorded �Confirmed �Type
amlodipine 10 mg tablet 10 mg PO DAILY Blood Pressure 04/17/24 04/17/24 History
bupropion HCl 150 mg 24 hr tablet, 150 mg PO DAILY Depression 04/17/24 04/17/24 History
extended release
buspirone 7.5 mg tablet 7.5 mg PO TID Mental Health/Anxiety 04/17/24 04/17/24 History
ergocalciferol (vitamin D2) 1,250 1,250 mcg PO QWEEK Supplement 04/17/24 04/17/24 History
mcg (50,000 unit) capsule (Vitamin
D2)
escitalopram oxalate 10 mg tablet 10 mg PO DAILY Mental 04/17/24 04/17/24 History
Health/Anxiety
fexofenadine 180 mg tablet 180 mg PO DAILY Allergies 04/17/24 04/17/24 History
losartan 100 mg tablet 100 mg PO DAILY Blood Pressure 04/17/24 04/17/24 History
pantoprazole 40 mg tablet,delayed 40 mg PO DAILY Gastrointestinal 04/17/24 04/17/24 History
release Issue
Physical Exam
Vital Signs
Vital Signs
Temp Pulse Resp BP Pulse Ox
97.6 F 75 16 102/71 99
04/20/24 15:30 04/20/24 15:30 04/20/24 15:30 04/20/24 15:30 04/20/24 15:30
Lab Results
WBC 4.4 10^3/uL (4.8-10.8) L 04/20/24 07:04
RBC 3.66 10^6/uL (4.20-5.40) L 04/20/24 07:04
Hgb 13.2 g/dL (12.0-16.0) 04/20/24 07:04
Hct 37.2 % (37.0-47.0) 04/20/24 07:04
Plt Count 162 10^3/uL (130-400) 04/20/24 07:04
Sodium 139 mmol/L (135-145) 04/20/24 07:04
Potassium 4.1 mmol/L (3.5-5.1) D 04/20/24 07:04
Chloride 106 mmol/L (98-107) 04/20/24 07:04
Carbon Dioxide 24 mmol/L (22-30) 04/20/24 07:04
BUN 6 mg/dl (7-17) L 04/20/24 07:04
Creatinine 0.7 mg/dL (0.6-1.0) 04/20/24 07:04
eGFR > 60.00 04/20/24 07:04
Glucose 92 mg/dl (70-99) 04/20/24 07:04
Calcium 9.2 mg/dl (8.4-10.2) 04/20/24 07:04
Phosphorus 3.1 mg/dl (2.5-4.5) 04/20/24 07:04
Albumin 3.0 g/dl (3.5-5.0) L 04/20/24 07:04
Laboratory Tests
09/30/23
10:57
Sodium 127 L
Potassium 3.3 L
Creatinine 0.6
Physical Exam
Patient is awake alert oriented and in no distress. Mood and affect were pleasant, insight and judgment were good. Pupils are equal round and reactive to light, extraocular movements are intact, sclera were anicteric. Hearing was normal, ears and
nose are intact. Oropharynx was clear. Neck was supple with trachea midline and no thyromegaly. Heart was regular rate and rhythm without rubs. Lower extremities without edema. Lungs were clear to auscultation bilaterally and with normal
excursion. Abdomen was soft, nontender, with normal active bowel sounds, and no hepatosplenomegaly. Skin was without rash and with normal turgor.
Data Reviewed
-
Radiology: Image Personally Visualized and interpreted (Chest x-ray on 04/17/2024 by reading shows no acute disease)
CT Scan: Report Reviewed by me (CT on 04/19/2024 shows scattered pulm nodules, right side adrenal fullness, kidneys unremarkable)
Labs: Labs Reviewed by me
Old Records: Reviewed
Assessment/Plan
-
Assessment
Hypertension
Hypokalemia
Alcoholism
Pulmonary nodules
Right adrenal fullness
Plan
Secondary workup for hypertension will be initiated at this time
Check ARR, metanephrines catecholamines
Check 24-hour urine 5 HIAA
Follow BMP
No changes to antihypertensive regimen at this time until workup is drawn
[2024-04-20] MEDS: LOVENOX 40 MG SC (18:10)
[2024-04-20] MEDS: VITAMIN B1 100 MG PO (20:04)
[2024-04-20 23:00] VITALS: BP 97/63
[2024-04-21 06:32] LABS: Hematocrit 38.5 % (37.0-47.0); Hemoglobin 13.8 g/dL (12.0-16.0); Mean Corp Hgb Conc. 35.8 g/dL (33.0-37.0); Mean Corpuscular Hgb 37.5 pg (27.0-31.0); Mean Corpuscular Volume 104.6 fL (81.0-99.0); Mean Platelet Volume 9.2 fL (7.4-10.4); Platelet Count 162 10^3/uL (130-400); Red Blood Cell Count 3.68 10^6/uL (4.20-5.40); Red Cell Dist. Width 12.4 % (11.5-14.5); White Blood Cell Count 7.1 10^3/uL (4.8-10.8)
[2024-04-21 06:53] LABS: ALT (SGPT) 28 U/L (0-35); AST (SGOT) 47 U/L (14-36); Albumin 3.3 g/dl (3.5-5.0); Alkaline Phosphatase 94 U/L (38-126); Blood Urea Nitrogen 8 mg/dl (7-17); Calcium 9.5 mg/dl (8.4-10.2); Carbon Dioxide 23 mmol/L (22-30); Chloride 104 mmol/L (98-107); Estimated Creatinine Clearance 70 ml/min; Glucose 105 mg/dl (70-99); Magnesium 1.7 mg/dl (1.6-2.3); Phosphorus 3.3 mg/dl (2.5-4.5); Potassium 5.2 mmol/L (3.5-5.1); Sodium 139 mmol/L (135-145); Total Bilirubin 1.1 mg/dl (0.2-1.3); Total Protein 6.7 g/dl (6.3-8.2); eGFR > 60.00
[2024-04-21 07:40] VITALS: BP 108/69
[2024-04-21] MEDS: MAGNESIUM OXIDE 500 MG PO ×2 (07:51→19:49)
[2024-04-21] MEDS: FOLVITE 1 MG PO (07:51)
--- NOTE | 2024-04-21 07:51 | W.PN.HOSP.TC ---
Today's Communication/Plan
-
follow up MRI
pheo work up as per Nephro
cont antidepressants as per Psych
Assessment / Plan
Assessment / Plan
Physical Exam
General: No acute distress appears comfortable at this time
HEENT: NormoCephalic, Moist mucous membranes and Atraumatic
Respiratory: Clear
Cardiac: S1/S2 and Regular Rhythm; No Murmur or Rub
GI: Soft, Non Tender, Non Distended and Normal Bowel Sounds; No Organomegaly
Musculoskeletal: No Clubbing, No Cyanosis and No Edema
Skin: No Rash
Neuro: AOx3 flat affect
Psych: Calm, Depressed
58F ETOH abuse anxiety/depression HTN Tobacco abuse
Ambulatory Dysfunction
- Uses walker/cane at home
- CT brain with mild diffuse cerebral and cerebellar atrophy, no acute findings
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
- Basic labs relatively unremarkable. TSH wnl. B12 wnl
- UA notes pyuria otherwise appears asymptomatic UT, follow up urine cx
- completed IVF
- PT/OT consult appreciated home health vs not needs
- CM consult
Alcohol Abuse
- Drinking 3-4 days per week, 3 glasses of wine per day, last drink 04/16 night
- ETOH level (-) on admission
- Suspect ETOH contributing to global cerebellar dysfunction and problem above
- ETOH cessation advised
- MV/FA/Thiamine. Ativan per CIWA protocol
- Psych and CM consult appreciated
Endorses 20 lb weight loss unintentional
CT chest/abd/pelvis w contrast appreciated
-Mild emphysematous lung changes.
-Multiple small pulmonary nodules, as described, measuring up to 5.3 mm. Some of the nodules appear hyperdense and/or calcified, consistent with calcified granulomas. Recommend follow-up in one year.
-Superior right hilar margin mild adenopathy measuring 1.4 cm. Nonspecific.
-Fatty infiltration of liver.
-Heterogeneous complex right adrenal mass measuring up to 2.6 cm. Nonspecific. Possible myelolipoma. Other possible considerations may include changes related to previous infection and/or hemorrhage. Adrenal tumor, such as pheochromocytoma may
also be considered in the proper clinical setting.
-Mild sigmoid diverticulosis. No evidence of acute diverticulitis. Disproportionate degree of slightly asymmetric wall thickening. Although likely related to inflammatory changes of diverticulosis, it would be difficult to exclude an underlying
neoplastic process with certainty. Recommend correlation with colonoscopy.
Possible Pheo
concern for possible underlying malignancy
Nephro eval appreciated
Oncology eval appreciated
pending MRI
Mild Elevated LFTs
- Likely alcoholic hepatitis.
- viral hepatitis panel neg
- monitor
Hypomagnesemia
monitor and replete as necessary
Macrocytosis
b12, folate wnl
iron studies appreciated Iron non-deficient
Anxiety/Depression
- Reports increasing depression, not taking her medications
- Resume home lexapro,
- Consult Psych appreciated buspirone discontinued in favor of increased wellbutrin later reduced due to concerns regarding possible Pheo
HTN
-likely exacerbated by ETOH withdrawal effect since improved
- cont amlodipine 10mg daily and losartan 100mg daily
-prn Hydralazine
BMI 17.9 underweight
encourage good nutrition oral intake
Diet: Regular
DVT Ppx: Lovenox
Code Status: Full
I spent a total of 40 minutes with the patient or on the floor. More than 50% of this time involved counseling and coordination of care.
Anticipated Discharge: 24 - 48 hours
Subjective/Interval History
-
Date of Service: April 21, 2024
no acute distress. appears comfortable. general malaise persists.
Objective Data
-
Labs:
Laboratory Results
04/21/24
06:04
WBC 7.1
Hgb 13.8
Hct 38.5
Plt Count 162
Sodium 139
Potassium 5.2 H D
Chloride 104
Carbon Dioxide 23
BUN 8
Creatinine 0.8
Glucose 105 H
Calcium 9.5
Total Bilirubin 1.1
AST 47 H
ALT 28
Alkaline Phosphatase 94
Vital Signs:
Vital Signs
Temp Pulse Resp BP Pulse Ox
98.7 F 82 16 108/69 97
04/21/24 07:40 04/21/24 07:40 04/21/24 07:40 04/21/24 07:40 04/21/24 07:40
I&O
04/20/24 04/21/24 04/22/24
06:59 06:59 06:59
Intake Total 840 / 840 720 / 720
Balance 840 / 840 720 / 720
[2024-04-21] MEDS: CLARITIN 10 MG PO (07:52)
[2024-04-21] MEDS: KCL 20 MEQ PO (07:52)
[2024-04-21] MEDS: PROTONIX 40 MG PO (07:52)
[2024-04-21] MEDS: WELLBUTRIN XL (24 hour extended release) 150 MG PO (07:52)
[2024-04-21] MEDS: NORVASC PO (07:53)
[2024-04-21] MEDS: COZAAR 100 MG PO (07:54)
[2024-04-21] MEDS: LEXAPRO 10 MG PO (07:54)
[2024-04-21] MEDS: THERAGRAN 1 TABLET PO (07:54)
[2024-04-21] MEDS: VITAMIN B1 100 MG PO ×2 (07:54→19:49)
[2024-04-21] MEDS: NICODERM TRANSDERMAL 14 MG TRANSDERM (07:57)
[2024-04-21] MEDS: MYLICON 80 MG PO (08:06)
--- NOTE | 2024-04-21 11:06 | W.PN.NEPH.PH ---
Today's Communication / Plan
-
hold arb/KCl
Assessment/Plan
-
Assessment
Hypertension
Hypokalemia
Alcoholism
Pulmonary nodules
Right adrenal fullness
Plan
Secondary workup for hypertension will be initiated at this time
Check ARR, metanephrines catecholamines
Check 24-hour urine 5 HIAA
Follow BMP
hold ARB/K given hyperk today
-
-
Date of Service: April 21, 2024
CC / HPI / ROS
-
Chief Complaint:
HTN
History of Present Illness:
BP low today
K up to 5.2
depression on buproprion
Review of Systems:
no CP/SOB
Labs
-
Labs:
WBC 7.1 10^3/uL (4.8-10.8) 04/21/24 06:04
RBC 3.68 10^6/uL (4.20-5.40) L 04/21/24 06:04
Hgb 13.8 g/dL (12.0-16.0) 04/21/24 06:04
Hct 38.5 % (37.0-47.0) 04/21/24 06:04
Plt Count 162 10^3/uL (130-400) 04/21/24 06:04
Sodium 139 mmol/L (135-145) 04/21/24 06:04
Potassium 5.2 mmol/L (3.5-5.1) H D 04/21/24 06:04
Chloride 104 mmol/L (98-107) 04/21/24 06:04
Carbon Dioxide 23 mmol/L (22-30) 04/21/24 06:04
BUN 8 mg/dl (7-17) 04/21/24 06:04
Creatinine 0.8 mg/dL (0.6-1.0) 04/21/24 06:04
eGFR > 60.00 04/21/24 06:04
Glucose 105 mg/dl (70-99) H 04/21/24 06:04
Calcium 9.5 mg/dl (8.4-10.2) 04/21/24 06:04
Phosphorus 3.3 mg/dl (2.5-4.5) 04/21/24 06:04
Albumin 3.3 g/dl (3.5-5.0) L 04/21/24 06:04
Physical Exam
-
Vital Signs:
Vital Signs
Temp Pulse Resp BP Pulse Ox
98.7 F 82 16 108/69 97
04/21/24 07:40 04/21/24 07:54 04/21/24 07:40 04/21/24 07:54 04/21/24 08:00
Cardiovascular:: Regular rate and rhythm
Respiratory:: Bilateral: CTA
Lung Excursion:: Normal
Abdomen:: Nontender and Soft
Bowel Sounds:: Normal
Extremity Edema:: None: Bilateral:
--- NOTE | 2024-04-21 11:37 | W.PN.UPDATE ---
Update Note
Progress Note Update
patient seen chart reviewed. discussed w nursing and with dr box. the patient said she did not really understand the results of the cat scans and could i explain them to her which i did. she is very worried about her future. she is acknowledging
the need to get sober from etoh and to stop smoking but also fearful of underlying medical illness and that she may not be able to navigate the medical system to get answers after discharge. reassured her that her physicians will work on getting to
the bottom of this and she should talk w her doctors when they visit today. no changes made in psych meds i explained to her why i decreased wellbutrin. i do have some concern that antidepressants lexapro and wellbutrin could influence the urinary
assays for catecholamines defer to renal. dr box aware of this concern
[2024-04-21 13:51] VITALS: BP 92/65; PULSE 86; O2SAT 97
[2024-04-21 15:18] VITALS: BP 101/68
--- NOTE | 2024-04-21 15:32 | CM ---
Reviewed chart, met with patient to determine if she wanted any resources for etoh/substance/tobacco and she was agreeable to a [facility] referral. Placed a call to Matteo who got information regarding patient and stated that he would be in to see
patient tomorrow.
Plan: Case management will continue to follow and assist with discharge planning.
[2024-04-21] MEDS: LOVENOX 40 MG SC (17:37)
--- NOTE | 2024-04-21 18:44 | CON.ONC ---
Impression
Impression
# Adrenal mass, etiology unclear
- pheo workup ordered
- MRI adrenal gland
#Lung nodules - tiny, etiology unclear
# Elevated iron sat and ferritin - suspect elevation in the setting of alcohol enhancing GI absorption
Plan
Plan
Pheo not a common cancer.
No findings strongly suspicious of malignancy.
Suggest CT chest in 6-12 months to verify stability of lung nodules.
Offered support regarding her alcoholism, encouraged to speak with psychiatry and her PMD, with whom she has a great relationship, to identify resource to enable cessation. Did not seem to derive benefit from AA in the past.
Thank you for consult, we will following along with you.
Patient History
History of Present Illness
58yo F with PMH ETOH abuse, Anxiety/Depression, HTN, Tobacco abuse who presents to ER with complaint of weakness ongoing for months but worsening more recently. Pt lives at home with her son and uses a walker/cane for ambulation. She reports
increasing gen weakness in LE with associated decreased PO intake. Denies actual falls or injuries. Pt reports worsening depression and generalized confusion. Her family members are all sick and this is depressing and anxiety provoking to her, this
is the only lifestyle change she reports that could have contributed to her weight loss. Pt does drink about 3-4/7 days a week approximately 3 glasses of wine per day, with last drink suspected day prior to admission.
In evaluation of the weight loss, she underwent CT C/A/P showing an adrenal mass measuring 2.6 x 2.4, heterogeneous in appearance. Few very small pulmonary nodules, largest 5-mm, some with appearance suggestive of granulomas. No prior studies for
comparison. Also noted a hilar node 1.4 cm, non-specific. She has hypertension in the setting of alcohol withdrawal. We are consulted regarding possibility of malignancy.
Past-Medical/Surgical History
Past Medical History
Alcohol use, anxiety depression, hypertension, oral surgery
Social History
Tobacco: Smoker
Alcohol: Daily
Drug: Marijuana
Family History
Substance abuse/addiction affecting brothers
Patient Medication
�Medication �Instructions �Recorded �Confirmed �Last Taken �Type
amlodipine 10 mg tablet 10 mg PO DAILY Blood Pressure 04/17/24 04/17/24 Unknown History
bupropion HCl 150 mg 24 hr tablet, 150 mg PO DAILY Depression 04/17/24 04/17/24 Unknown History
extended release
buspirone 7.5 mg tablet 7.5 mg PO TID Mental Health/Anxiety 04/17/24 04/17/24 Unknown History
ergocalciferol (vitamin D2) 1,250 1,250 mcg PO QWEEK Supplement 04/17/24 04/17/24 Unknown History
mcg (50,000 unit) capsule (Vitamin
D2)
escitalopram oxalate 10 mg tablet 10 mg PO DAILY Mental 04/17/24 04/17/24 Unknown History
Health/Anxiety
fexofenadine 180 mg tablet 180 mg PO DAILY Allergies 04/17/24 04/17/24 Unknown History
losartan 100 mg tablet 100 mg PO DAILY Blood Pressure 04/17/24 04/17/24 Unknown History
pantoprazole 40 mg tablet,delayed 40 mg PO DAILY Gastrointestinal 04/17/24 04/17/24 Unknown History
release Issue
Active Medications
Generic Name Dose Route Start Last Admin
Trade Name Freq PRN Reason Stop Dose Admin
Amlodipine Besylate 5 mg 04/19/24 08:00 04/21/24 07:53
Amlodipine 10 Mg Tablet PO 05/17/24 07:59 Not Given
DAILY AMILCAR
Bisacodyl 10 mg 04/17/24 16:39
Bisacodyl 10 Mg Rectal Suppository RECTAL 05/15/24 16:38
[id number] PRN
constipation
Bupropion HCl 150 mg 04/21/24 08:00 04/21/24 07:52
Bupropion (24hr) Extended Release 150 Mg Tablet PO 05/19/24 07:59 150 mg
DAILY AMILCAR Administration
Enoxaparin Sodium 40 mg 04/17/24 18:00 04/21/24 17:37
Enoxaparin Sodium 40 Mg/0.4 Ml Syringe SC 05/15/24 17:59 40 mg
QPM AMILCAR Administration
Ergocalciferol 50,000 units 04/18/24 08:00 04/18/24 07:49
Ergocalciferol (Vitamin D-2) 00064 Units Capsule PO 05/16/24 07:59 50,000 units
WEEKLY AMILCAR Administration
Escitalopram Oxalate 10 mg 04/18/24 08:00 04/21/24 07:54
Escitalopram 10 Mg Tablet PO 05/16/24 07:59 10 mg
DAILY AMILCAR Administration
Folic Acid 1 mg 04/17/24 16:39 04/21/24 07:51
Folic Acid 1 Mg Tablet PO 05/15/24 16:38 1 mg
DAILY AMILCAR Administration
Hydralazine HCl 10 mg 04/17/24 15:32
Hydralazine 20 Mg/Ml Vial IV 05/15/24 15:31
Q6HPRN PRN
SBP greater than 170 mmhg
Folic Acid 1 mg/ Sodium 50.2 mls @ 200.8 mls/hr 04/17/24 16:39
Chloride IV 05/15/24 16:38
DAILYPRN PRN
if NPO
Loratadine 10 mg 04/18/24 08:00 04/21/24 07:52
Loratadine 10 Mg Tablet PO 05/16/24 07:59 10 mg
DAILY AMILCAR Administration
Magnesium Oxide 500 mg 04/17/24 20:00 04/21/24 07:51
Magnesium Oxide 500 Mg Tablet PO 05/15/24 19:59 500 mg
BID AMILCAR Administration
Multivitamins Therapeutic 1 tablet 04/18/24 08:00 04/21/24 07:54
Multivitamin Tablet PO 05/16/24 07:59 1 tablet
DAILY AMILCAR Administration
Nicotine 14 mg 04/17/24 16:39 04/21/24 07:57
Nicotine 14 Mg Patch TRANSDERM 05/15/24 16:38 14 mg
DAILY AMILCAR Administration
Ondansetron HCl 4 mg 04/17/24 16:39
Ondansetron 4 Mg/2 Ml Vial IV 05/15/24 16:38
Q6HPRN PRN
nausea and vomiting
Pantoprazole Sodium 40 mg 04/17/24 16:39 04/21/24 07:52
Pantoprazole 40 Mg Delayed Release Tablet PO 05/15/24 16:38 40 mg
DAILY AMILCAR Administration
Polyethylene Glycol 17 grams 04/17/24 16:39
Polyethylene Glycol Powder 17 Grams Packet PO 05/15/24 16:38
DAILYPRN PRN
constipation
Senna/Docusate Sodium 1 tablet 04/17/24 16:39
Docusate W/Senna (Radha-Colace) Tablet PO 05/15/24 16:38
BIDPRN PRN
constipation
Simethicone 80 mg 04/19/24 20:05 04/21/24 08:06
Simethicone 80 Mg Chewable Tablet PO 05/17/24 20:04 80 mg
QIDPRN PRN Administration
gas pain/bloat
Sodium Chloride 0 flush 04/17/24 17:00
Sodium Chloride 0.9% (Flush) Syringe IV 05/15/24 16:59
PER PROTOCOL AMILCAR
Thiamine HCl 100 mg 04/20/24 20:00 04/21/24 07:54
Thiamine 100 Mg Tablet PO 05/18/24 19:59 100 mg
BID AMILCAR Administration
Review of Systems
-
History Source: Patient
All Other Systems: Reviewed and Negative
Physical Exam
-
General: Well Developed and Well Nourished
Cardiology: Normal Sinus Rhythm, S1 and S2
Pulmonary: Clear; Negative Wheezes
GI: Soft and Normal Bowel Sounds
Musculoskeletal: No Clubbing, No Cyanosis and No Edema
Extremities: Pulses Present; Negative Phlebitic Signs
Neurology: Non Focal and No Lateralizing Symptoms
Skin: Warm and Dry
Hematologic / Lymphatic: No Lymphadenopathy
Psych: Intact Judgement/Insight and Anxious
Labs
Lab Results
WBC 7.1 10^3/uL (4.8-10.8) 04/21/24 06:04
RBC 3.68 10^6/uL (4.20-5.40) L 04/21/24 06:04
Hgb 13.8 g/dL (12.0-16.0) 04/21/24 06:04
Hct 38.5 % (37.0-47.0) 04/21/24 06:04
MCV 104.6 fL (81.0-99.0) H 04/21/24 06:04
MCH 37.5 pg (27.0-31.0) H 04/21/24 06:04
MCHC 35.8 g/dL (33.0-37.0) 04/21/24 06:04
RDW 12.4 % (11.5-14.5) 04/21/24 06:04
Plt Count 162 10^3/uL (130-400) 04/21/24 06:04
MPV 9.2 fL (7.4-10.4) 04/21/24 06:04
Abs Immat Gran (auto) 0.0 10^3/uL (0-0.05) 04/17/24 11:22
Absolute Neuts (auto) 3.9 10^3/uL (1.4-6.5) 04/17/24 11:22
Absolute Lymphs (auto) 1.1 10^3/uL (1.2-3.4) L 04/17/24 11:22
Absolute Monos (auto) 0.4 10^3/uL (0.1-0.6) 04/17/24 11:22
Absolute Eos (auto) 0.1 10^3/uL (0-0.7) 04/17/24 11:22
Absolute Basos (auto) 0.0 10^3/uL (0-0.2) 04/17/24 11:22
Immature Gran % 0.4 % (0-0.5) 04/17/24 11:22
Neutrophils % 72.2 % (42.2-75.2) 04/17/24 11:22
Lymphocytes % 19.7 % (20.5-51.1) L 04/17/24 11:22
Monocytes % 6.6 % (1.7-9.3) 04/17/24 11:22
Eosinophils % 0.9 % (0-6) 04/17/24 11:22
Basophils % 0.2 % (0-2) 04/17/24 11:22
Creatinine 0.8 mg/dL (0.6-1.0) 04/21/24 06:04
9: iron sat 50%, ferritin 496
Vital Signs
Vital Signs
Temp Pulse Resp BP Pulse Ox
98.5 F 86 16 101/68 97
04/21/24 15:18 04/21/24 15:18 04/21/24 15:18 04/21/24 15:18 04/21/24 15:18
[2024-04-21 23:00] VITALS: BP 98/62
[2024-04-22 06:34] LABS: Hematocrit 35.9 % (37.0-47.0); Hemoglobin 12.9 g/dL (12.0-16.0); Mean Corp Hgb Conc. 35.9 g/dL (33.0-37.0); Mean Corpuscular Hgb 36.5 pg (27.0-31.0); Mean Corpuscular Volume 101.7 fL (81.0-99.0); Mean Platelet Volume 9.5 fL (7.4-10.4); Platelet Count 186 10^3/uL (130-400); Red Blood Cell Count 3.53 10^6/uL (4.20-5.40); Red Cell Dist. Width 12.6 % (11.5-14.5)
[2024-04-22 06:54] LABS: ALT (SGPT) 26 U/L (0-35); AST (SGOT) 40 U/L (14-36); Albumin 3.1 g/dl (3.5-5.0); Alkaline Phosphatase 92 U/L (38-126); Blood Urea Nitrogen 10 mg/dl (7-17); Calcium 9.4 mg/dl (8.4-10.2); Carbon Dioxide 23 mmol/L (22-30); Chloride 103 mmol/L (98-107); Estimated Creatinine Clearance 80 ml/min; Glucose 95 mg/dl (70-99); Magnesium 1.9 mg/dl (1.6-2.3); Phosphorus 3.4 mg/dl (2.5-4.5); Potassium 4.3 mmol/L (3.5-5.1); Sodium 136 mmol/L (135-145); Total Protein 6.4 g/dl (6.3-8.2); eGFR > 60.00
--- NOTE | 2024-04-22 07:21 | W.PN.HOSP.TC ---
Today's Communication/Plan
-
MRI pending
monitor bp
PT/OT
antidepressants as per psych
Assessment / Plan
Assessment / Plan
Physical Exam
General: No acute distress appears comfortable at this time
HEENT: NormoCephalic, Moist mucous membranes and Atraumatic
Respiratory: Clear
Cardiac: S1/S2 and Regular Rhythm; No Murmur or Rub
GI: Soft, Non Tender, Non Distended and Normal Bowel Sounds; No Organomegaly
Musculoskeletal: No Clubbing, No Cyanosis and No Edema
Skin: No Rash
Neuro: AOx3
Psych: Calm
58F ETOH abuse anxiety/depression HTN Tobacco abuse
Ambulatory Dysfunction
- Uses walker/cane at home
- CT brain with mild diffuse cerebral and cerebellar atrophy, no acute findings
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
- Basic labs relatively unremarkable. TSH wnl. B12 wnl
- UA notes pyuria otherwise appears asymptomatic UT, follow up urine cx
- completed IVF
- PT/OT consult appreciated home health vs not needs
- CM consult
Alcohol Abuse
- Drinking 3-4 days per week, 3 glasses of wine per day, last drink 04/16 night
- ETOH level (-) on admission
- Suspect ETOH contributing to global cerebellar dysfunction and problem above
- ETOH cessation advised
- MV/FA/Thiamine. Ativan per CIWA protocol
- Psych and CM consult appreciated
Endorses 20 lb weight loss unintentional
CT chest/abd/pelvis w contrast appreciated
-Mild emphysematous lung changes.
-Multiple small pulmonary nodules, as described, measuring up to 5.3 mm. Some of the nodules appear hyperdense and/or calcified, consistent with calcified granulomas. Recommend follow-up in one year.
-Superior right hilar margin mild adenopathy measuring 1.4 cm. Nonspecific.
-Fatty infiltration of liver.
-Heterogeneous complex right adrenal mass measuring up to 2.6 cm. Nonspecific. Possible myelolipoma. Other possible considerations may include changes related to previous infection and/or hemorrhage. Adrenal tumor, such as pheochromocytoma may
also be considered in the proper clinical setting.
-Mild sigmoid diverticulosis. No evidence of acute diverticulitis. Disproportionate degree of slightly asymmetric wall thickening. Although likely related to inflammatory changes of diverticulosis, it would be difficult to exclude an underlying
neoplastic process with certainty. Recommend correlation with colonoscopy.
Possible Pheo
concern for possible underlying malignancy
Nephro eval appreciated
Oncology eval appreciated
pending MRI
Mild Elevated LFTs
- Likely alcoholic hepatitis.
- viral hepatitis panel neg
- monitor
Hypomagnesemia
monitor and replete as necessary
Macrocytosis
b12, folate wnl
iron studies appreciated Iron non-deficient
Anxiety/Depression
- Reports increasing depression, not taking her medications
- Resume home lexapro,
- Consult Psych appreciated buspirone discontinued in favor of increased wellbutrin later reduced due to concerns regarding possible Pheo
HTN
-likely exacerbated by ETOH withdrawal effect since improved
- cont amlodipine 10mg daily and losartan 100mg daily
-prn Hydralazine
BMI 17.9 underweight
encourage good nutrition oral intake
Diet: Regular
DVT Ppx: Lovenox
Code Status: Full
I spent a total of 40 minutes with the patient or on the floor. More than 50% of this time involved counseling and coordination of care.
Anticipated Discharge: 24 - 48 hours
Subjective/Interval History
-
Date of Service: April 22, 2024
reports appetite improving. continues to report general fatique
Objective Data
-
Labs:
Laboratory Results
04/22/24
05:55
WBC 5.0
Hgb 12.9
Hct 35.9 L
Plt Count 186
Sodium 136
Potassium 4.3
Chloride 103
Carbon Dioxide 23
BUN 10
Creatinine 0.7
Glucose 95
Calcium 9.4
Total Bilirubin 1.0
AST 40 H
ALT 26
Alkaline Phosphatase 92
Vital Signs:
Vital Signs
Temp Pulse Resp BP Pulse Ox
97.6 F 70 18 98/62 98
04/21/24 23:00 04/21/24 23:00 04/21/24 23:00 04/21/24 23:00 04/21/24 23:00
I&O
04/21/24 04/22/24 04/23/24
06:59 06:59 06:59
Intake Total 720 / 720 1500 / 1500
Output Total 250 / 250
Balance 720 / 720 1250 / 1250
[2024-04-22 07:45] VITALS: BP 116/71
[2024-04-22] MEDS: PROTONIX 40 MG PO (09:19)
[2024-04-22] MEDS: WELLBUTRIN XL (24 hour extended release) 150 MG PO (09:19)
[2024-04-22] MEDS: NORVASC 5 MG PO (09:20)
[2024-04-22] MEDS: NICODERM TRANSDERMAL 14 MG TRANSDERM (09:25)
[2024-04-22] MEDS: LEXAPRO 10 MG PO (09:26)
[2024-04-22] MEDS: THERAGRAN 1 TABLET PO (09:26)
[2024-04-22] MEDS: FOLVITE 1 MG PO (09:26)
[2024-04-22] MEDS: VITAMIN B1 100 MG PO ×2 (09:26→20:24)
[2024-04-22] MEDS: MAGNESIUM OXIDE 500 MG PO ×2 (09:26→20:24)
[2024-04-22] MEDS: CLARITIN 10 MG PO (09:26)
--- NOTE | 2024-04-22 09:55 | CM ---
Received call from Matteo from [facility] who stated that he met with patient and gave her resources on substance abuse outpatient facilities. He provided information about [facility] which is close to her home and accessible. She agreed to going once she is
discharged.
Plan: Case management will continue to follow and assist with discharge planning. Outpatient substance abuse f/u at discharge.
--- NOTE | 2024-04-22 10:29 | W.PN.NEPH.PH ---
Today's Communication / Plan
-
bp stable off arb
secondary htn work up in progress
electrolytes stable
Assessment/Plan
-
Assessment
Hypertension
Hypokalemia
Alcoholism
Pulmonary nodules
Right adrenal fullness
Plan
electrolytes normalized
Secondary workup for hypertension will be initiated at this time: pending
Checked ARR, metanephrines catecholamines
Check 24-hour urine 5 HIAA
Follow BMP
hold ARB/K given hyperk today
-
-
Date of Service: April 22, 2024
CC / HPI / ROS
-
Chief Complaint:
HTN
History of Present Illness:
BP low today
K down to 4.3
depression on buproprion
Review of Systems:
no CP/SOB
Labs
-
Labs:
WBC 5.0 10^3/uL (4.8-10.8) 04/22/24 05:55
RBC 3.53 10^6/uL (4.20-5.40) L 04/22/24 05:55
Hgb 12.9 g/dL (12.0-16.0) 04/22/24 05:55
Hct 35.9 % (37.0-47.0) L 04/22/24 05:55
Plt Count 186 10^3/uL (130-400) 04/22/24 05:55
Sodium 136 mmol/L (135-145) 04/22/24 05:55
Potassium 4.3 mmol/L (3.5-5.1) 04/22/24 05:55
Chloride 103 mmol/L (98-107) 04/22/24 05:55
Carbon Dioxide 23 mmol/L (22-30) 04/22/24 05:55
BUN 10 mg/dl (7-17) 04/22/24 05:55
Creatinine 0.7 mg/dL (0.6-1.0) 04/22/24 05:55
eGFR > 60.00 04/22/24 05:55
Glucose 95 mg/dl (70-99) 04/22/24 05:55
Calcium 9.4 mg/dl (8.4-10.2) 04/22/24 05:55
Phosphorus 3.4 mg/dl (2.5-4.5) 04/22/24 05:55
Albumin 3.1 g/dl (3.5-5.0) L 04/22/24 05:55
Physical Exam
-
Vital Signs:
Vital Signs
Temp Pulse Resp BP Pulse Ox
97.9 F 70 16 116/71 95
04/22/24 07:45 04/22/24 09:20 04/22/24 07:45 04/22/24 09:20 04/22/24 07:45
Cardiovascular:: Regular rate and rhythm
Respiratory:: Bilateral: CTA
Lung Excursion:: Normal
Abdomen:: Nontender and Soft
Bowel Sounds:: Normal
Extremity Edema:: None: Bilateral:
[2024-04-22 14:45] VITALS: BP 102/74; BP 103/74; BP 108/72; PULSE 79; PULSE 90; PULSE 97; O2SAT 97
[2024-04-22 15:18] VITALS: BP 102/74
--- NOTE | 2024-04-22 16:16 | W.PN.UPDATE ---
Update Note
Progress Note Update
patient seen chart reviewed. the patient reports she feels very tired today. reviewed the report of dr [place] which was somewhat reassuring to her. workup continues for hypertension etc. to r/o pheo. pulmonary granulomas are to be monitored.
spoke with dr box. other findings including gi will be assessed w mri which is ordered. the patient admitted she worries about everything ...her mother her son her own health and it is very difficult for her to stop herself from obsessing. we
talked about how she sometimes feels sandwiched between caring for mom and trying to help son. i did not make any changes in her medications. psych will continue to offer support as her medical issues are addressed and consider changes to her meds
(wellbutrin had been decreased back to 150 mg give the workup for pheo. will follow
[2024-04-22] MEDS: LOVENOX 40 MG SC (18:24)
[2024-04-22 23:00] VITALS: BP 105/72
--- NOTE | 2024-04-23 07:08 | W.PN.HOSP.TC ---
Today's Communication/Plan
-
ensure supplement
pending MRI
monitor BP electrolytes
PT/OT
GI eval
Assessment / Plan
Assessment / Plan
Physical Exam
General: No acute distress appears comfortable at this time
HEENT: NormoCephalic, Moist mucous membranes and Atraumatic
Respiratory: Clear
Cardiac: S1/S2 and Regular Rhythm; No Murmur or Rub
GI: Soft, Non Tender, Non Distended and Normal Bowel Sounds; No Organomegaly
Musculoskeletal: No Clubbing, No Cyanosis and No Edema
Skin: No Rash
Neuro: AOx3
Psych: Calm
58F ETOH abuse anxiety/depression HTN Tobacco abuse
Ambulatory Dysfunction
- Uses walker/cane at home
- CT brain with mild diffuse cerebral and cerebellar atrophy, no acute findings
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
- Basic labs relatively unremarkable. TSH wnl. B12 wnl
- UA notes pyuria otherwise appears asymptomatic UT, follow up urine cx
- completed IVF
- PT/OT consult appreciated home health vs not needs
- CM consult
Alcohol Abuse
- Drinking 3-4 days per week, 3 glasses of wine per day, last drink 04/16 night
- ETOH level (-) on admission
- Suspect ETOH contributing to global cerebellar dysfunction and problem above
- ETOH cessation advised
- MV/FA/Thiamine. Ativan per CIWA protocol
- Psych and CM consult appreciated
Endorses 20 lb weight loss unintentional
CT chest/abd/pelvis w contrast appreciated
-Mild emphysematous lung changes.
-Multiple small pulmonary nodules, as described, measuring up to 5.3 mm. Some of the nodules appear hyperdense and/or calcified, consistent with calcified granulomas. Recommend follow-up in one year.
-Superior right hilar margin mild adenopathy measuring 1.4 cm. Nonspecific.
-Fatty infiltration of liver.
-Heterogeneous complex right adrenal mass measuring up to 2.6 cm. Nonspecific. Possible myelolipoma. Other possible considerations may include changes related to previous infection and/or hemorrhage. Adrenal tumor, such as pheochromocytoma may
also be considered in the proper clinical setting.
-Mild sigmoid diverticulosis. No evidence of acute diverticulitis. Disproportionate degree of slightly asymmetric wall thickening. Although likely related to inflammatory changes of diverticulosis, it would be difficult to exclude an underlying
neoplastic process with certainty. Recommend correlation with colonoscopy.
-Patient later endorses intermittent bloody bowel movements w/ associate abd discomfort. Unclear frequency onset, reported started 'days ago,' GI eval requested
Possible Pheo
concern for possible underlying malignancy
Nephro eval appreciated
Oncology eval appreciated
pending MRI
Mild Elevated LFTs
- Likely alcoholic hepatitis.
- viral hepatitis panel neg
- monitor
Hypomagnesemia
monitor and replete as necessary
Macrocytosis
b12, folate wnl
iron studies appreciated Iron non-deficient
Anxiety/Depression
- Reports increasing depression, not taking her medications
- Resume home lexapro,
- Consult Psych appreciated buspirone discontinued in favor of increased wellbutrin later reduced due to concerns regarding possible Pheo
HTN
-likely exacerbated by ETOH withdrawal effect since improved
- cont amlodipine 10mg daily and losartan 100mg daily
-prn Hydralazine
BMI 17.9 underweight
encourage good nutrition oral intake
ensure supplement daily added to diet
Diet: Regular
DVT Ppx: Lovenox
Code Status: Full
I spent a total of 40 minutes with the patient or on the floor. More than 50% of this time involved counseling and coordination of care.
Anticipated Discharge: 24 - 48 hours
Subjective/Interval History
-
Date of Service: April 23, 2024
Endorses bloody bowel movements intermittent for the past few days (unclear onset of symptoms). Most recent bloody bowel movement yesterday with associate abd discomfort. Currently not acute distress, abd soft nontender bowel sounds present.
Objective Data
-
Labs:
Laboratory Results
04/23/24
06:00
WBC Pending
Hgb Pending
Hct Pending
Plt Count Pending
Sodium Pending
Potassium Pending
Chloride Pending
Carbon Dioxide Pending
BUN Pending
Creatinine Pending
Glucose Pending
Calcium Pending
Total Bilirubin Pending
AST Pending
ALT Pending
Alkaline Phosphatase Pending
Vital Signs:
Vital Signs
Temp Pulse Resp BP Pulse Ox
98.1 F 84 16 105/72 96
04/22/24 23:00 04/22/24 23:00 04/22/24 23:00 04/22/24 23:00 04/22/24 23:00
I&O
04/22/24 04/23/24 04/24/24
06:59 06:59 06:59
Intake Total 1500 / 1500 1540 / 1540
Output Total 250 / 250
Balance 1250 / 1250 1540 / 1540
[2024-04-23 07:42] LABS: Hematocrit 35.2 % (37.0-47.0); Hemoglobin 12.5 g/dL (12.0-16.0); Mean Corp Hgb Conc. 35.5 g/dL (33.0-37.0); Mean Corpuscular Hgb 35.8 pg (27.0-31.0); Mean Corpuscular Volume 100.9 fL (81.0-99.0); Mean Platelet Volume 9.5 fL (7.4-10.4); Platelet Count 204 10^3/uL (130-400); Red Blood Cell Count 3.49 10^6/uL (4.20-5.40); Red Cell Dist. Width 12.7 % (11.5-14.5); White Blood Cell Count 4.7 10^3/uL (4.8-10.8)
[2024-04-23 07:51] VITALS: BP 107/68
[2024-04-23 08:09] LABS: ALT (SGPT) 22 U/L (0-35); AST (SGOT) 32 U/L (14-36); Alkaline Phosphatase 89 U/L (38-126); Blood Urea Nitrogen 13 mg/dl (7-17); Calcium 9.3 mg/dl (8.4-10.2); Carbon Dioxide 25 mmol/L (22-30); Chloride 101 mmol/L (98-107); Estimated Creatinine Clearance 70 ml/min; Glucose 90 mg/dl (70-99); Magnesium 1.8 mg/dl (1.6-2.3); Phosphorus 3.7 mg/dl (2.5-4.5); Potassium 4.1 mmol/L (3.5-5.1); Sodium 138 mmol/L (135-145); Total Bilirubin 0.9 mg/dl (0.2-1.3); Total Protein 6.4 g/dl (6.3-8.2); eGFR > 60.00
[2024-04-23] MEDS: NORVASC PO (09:14)
[2024-04-23] MEDS: PROTONIX 40 MG PO (09:14)
[2024-04-23] MEDS: CLARITIN 10 MG PO (09:14)
[2024-04-23] MEDS: THERAGRAN 1 TABLET PO (09:15)
[2024-04-23] MEDS: NICODERM TRANSDERMAL 14 MG TRANSDERM (09:15)
[2024-04-23] MEDS: MAGNESIUM OXIDE 500 MG PO ×2 (09:15→19:47)
[2024-04-23] MEDS: VITAMIN B1 100 MG PO ×2 (09:17→19:47)
[2024-04-23] MEDS: FOLVITE 1 MG PO (09:17)
--- NOTE | 2024-04-23 10:39 | W.PN.NEPH.PH ---
Today's Communication / Plan
-
Observe
Assessment/Plan
-
Assessment
Hypertension
Hypokalemia
Alcoholism
Pulmonary nodules
Right adrenal fullness
Plan
electrolytes normalized
Secondary workup for hypertension will be initiated at this time: pending
Checked ARR, metanephrines catecholamines: pending
Checked 24-hour urine 5 HIAA:pending
Follow BMP
hold ARB/K given previous hyperkalemia and bp remains low side on amlodipine
-
-
Date of Service: April 23, 2024
CC / HPI / ROS
-
Chief Complaint:
HTN
History of Present Illness:
BP low today
K down to 4.1
depression on buproprion
Review of Systems:
no CP/SOB
Labs
-
Labs:
WBC 4.7 10^3/uL (4.8-10.8) L 04/23/24 07:15
RBC 3.49 10^6/uL (4.20-5.40) L 04/23/24 07:15
Hgb 12.5 g/dL (12.0-16.0) 04/23/24 07:15
Hct 35.2 % (37.0-47.0) L 04/23/24 07:15
Plt Count 204 10^3/uL (130-400) 04/23/24 07:15
Sodium 138 mmol/L (135-145) 04/23/24 07:15
Potassium 4.1 mmol/L (3.5-5.1) 04/23/24 07:15
Chloride 101 mmol/L (98-107) 04/23/24 07:15
Carbon Dioxide 25 mmol/L (22-30) 04/23/24 07:15
BUN 13 mg/dl (7-17) 04/23/24 07:15
Creatinine 0.8 mg/dL (0.6-1.0) 04/23/24 07:15
eGFR > 60.00 04/23/24 07:15
Glucose 90 mg/dl (70-99) 04/23/24 07:15
Calcium 9.3 mg/dl (8.4-10.2) 04/23/24 07:15
Phosphorus 3.7 mg/dl (2.5-4.5) 04/23/24 07:15
Albumin 3.0 g/dl (3.5-5.0) L 04/23/24 07:15
Physical Exam
-
Vital Signs:
Vital Signs
Temp Pulse Resp BP Pulse Ox
98.1 F 71 16 107/68 97
04/23/24 07:51 04/23/24 07:51 04/23/24 07:51 04/23/24 07:51 04/23/24 07:51
Cardiovascular:: Regular rate and rhythm
Respiratory:: Bilateral: CTA
Lung Excursion:: Normal
Abdomen:: Nontender and Soft
Bowel Sounds:: Normal
Extremity Edema:: None: Bilateral:
Moran Catheter: No
[2024-04-23] MEDS: WELLBUTRIN XL (24 hour extended release) 150 MG PO (11:07)
[2024-04-23] MEDS: LEXAPRO 10 MG PO (11:07)
--- NOTE | 2024-04-23 11:08 | W.PN.UPDATE ---
Update Note
Progress Note Update
Patient reports she is doing better, less depressed, denies hopelessness or suicidal thoughts.
Still has very low energy and feels constantly tired.
Medical W/U in progress, will F/U.
--- NOTE | 2024-04-23 13:20 | CON.GI ---
Consultation
-
Date/Time Consultation Requested: 04/23/24
Date/Time Consultation Performed: 04/23/24d
Requesting Provider: Dr. Peter Luevano
Performing Provider: Dr. Shawnee Sosa
Reason for Consultation: abnormal CT findings, rectal bleeding
Medical History
Chief Complaint / HPI
Chief Complaint: weight loss, rectal bleeding
History of Present Illness:
Dee is a 58-year-old female with past medical history of alcohol abuse, pulmonary nodules, anxiety, depression, hypertension, tobacco abuse admitted with ambulatory dysfunction found to have multiple electrolyte abnormalities as well as reported
unintentional weight loss of [address] scan performed on 04/19/2024 revealed heterogeneous complex right adrenal mass, unable to definitively rule out malignancy, mild sigmoid diverticulosis with slight asymmetric wall thickening possibly due to
adjacent diverticulosis but unable to exclude neoplastic process, fatty infiltration of the liver and superior right hilar margin mild adenopathy measuring 1.4 cm in addition to mild emphysematous changes, multiple small pulmonary nodules. GI is
consulted for abnormal CT findings as well as patient reporting a few episodes of bright red blood per rectum over the last few days. She denies any straining with defecation or constipation, reports she moves her bowels regularly, soft but no
diarrhea. Describes scant amounts of bright red blood coating brown stool. She states she has had a colonoscopy before but cannot recall when or any details of her procedure. Family history significant for 2 brothers with Crohn's disease,
diagnosed prior to the age of 20. She admits excessive alcohol use, 3 to 4 days/week, 3 glasses of wine per day.
Past Medical History
Past Medical History: HTN, Psychiatric and Other (alcohol abuse)
Past Surgical History: Other (oral surgery)
Social History
Tobacco: Smoker
Alcohol: Daily
Drug: Marijuana
Family History
Family History: Other (2x brothers with Crohns)
Allergies / Home Medications
Allergy/AdvReac Type Severity Reaction Status Date / Time
No Known Allergies Allergy Verified 04/17/24 10:59
�Medication �Instructions �Recorded
amlodipine 10 mg tablet 10 mg PO DAILY Blood Pressure 04/17/24
bupropion HCl 150 mg 24 hr tablet, 150 mg PO DAILY Depression 04/17/24
extended release
buspirone 7.5 mg tablet 7.5 mg PO TID Mental Health/Anxiety 04/17/24
ergocalciferol (vitamin D2) 1,250 1,250 mcg PO QWEEK Supplement 04/17/24
mcg (50,000 unit) capsule (Vitamin
D2)
escitalopram oxalate 10 mg tablet 10 mg PO DAILY Mental 04/17/24
Health/Anxiety
fexofenadine 180 mg tablet 180 mg PO DAILY Allergies 04/17/24
losartan 100 mg tablet 100 mg PO DAILY Blood Pressure 04/17/24
pantoprazole 40 mg tablet,delayed 40 mg PO DAILY Gastrointestinal 04/17/24
release Issue
Review of Systems
-
History Source: Patient
Vital Signs
Temp Pulse Resp BP Pulse Ox
98.1 F 71 16 107/68 97
04/23/24 07:51 04/23/24 07:51 04/23/24 07:51 04/23/24 07:51 04/23/24 07:51
Physical Exam
Exam
GENERAL: In no acute distress
ABDOMEN: Thin +BS; soft, non-tender and non-distended; ALICIA: +external hemorrhoids, light brown stool
Results
WBC 4.7 10^3/uL (4.8-10.8) L 04/23/24 07:15
Hgb 12.5 g/dL (12.0-16.0) 04/23/24 07:15
Hct 35.2 % (37.0-47.0) L 04/23/24 07:15
MCV 100.9 fL (81.0-99.0) H 04/23/24 07:15
Plt Count 204 10^3/uL (130-400) 04/23/24 07:15
Absolute Neuts (auto) 3.9 10^3/uL (1.4-6.5) 04/17/24 11:22
PT 13.0 Sec (11.4-14.6) 04/19/24 12:11
INR 0.98 04/19/24 12:11
APTT 27.0 Sec (23.4-35.0) 04/19/24 12:11
Sodium 138 mmol/L (135-145) 04/23/24 07:15
Potassium 4.1 mmol/L (3.5-5.1) 04/23/24 07:15
Chloride 101 mmol/L (98-107) 04/23/24 07:15
Carbon Dioxide 25 mmol/L (22-30) 04/23/24 07:15
BUN 13 mg/dl (7-17) 04/23/24 07:15
Creatinine 0.8 mg/dL (0.6-1.0) 04/23/24 07:15
Calcium 9.3 mg/dl (8.4-10.2) 04/23/24 07:15
Total Bilirubin 0.9 mg/dl (0.2-1.3) 04/23/24 07:15
AST 32 U/L (14-36) 04/23/24 07:15
ALT 22 U/L (0-35) 04/23/24 07:15
Alkaline Phosphatase 89 U/L (38-126) 04/23/24 07:15
Lipase 122 U/L (23-300) 04/19/24 06:02
Hepatitis A IgM Ab Cancelled 04/17/24 16:22
Hepatitis A Ab Total Negative (Negative) 04/17/24 16:22
Hep Bs Antibody Negative 04/17/24 16:22
Hep B Core Total Ab Negative (Negative) 04/17/24 16:22
Hep B Core IgM Ab Cancelled 04/17/24 16:22
Hepatitis C Antibody Negative (Negative) 04/17/24 16:22
Diagnostic Image Results:
Prior GI Procedures:
EGD:
Colonoscopy:
Assessment / Plan
-
58-year-old female with history of alcohol abuse, tobacco abuse, hypertension, anxiety and depression admitted with ambulatory dysfunction and electrolyte abnormalities likely secondary to alcohol abuse resulting in vitamin and mineral all
deficiencies found to have abnormalities on imaging. Currently being worked up for secondary hypertension.
#Abnormal CT Scan
#Rectal Bleeding
#Unintentional Weight loss
#Alcohol Abuse
#Elevated LFTs
Abnormal CT scan could represent mild inflammatory changes adjacent to diverticulum vs. mild diverticulitis (although, no associated abd. pain) vs. SCAD vs. Malignancy vs. less likely IBD. Unable to recall when her prior colonoscopy was or the
findings, however, I will assume she is overdue, additionally, now with new rectal bleeding which does necessitate further evaluation. Recal exam with light brown stool and external hemorrhoids. Her hemoglobin is stable.
She has been counseled about the need for abstinence from etoh, evidence of hepatic steatosis on imaging. Initially had mild elevations in transaminases, which normalized, suspect mild alc hepatitis. Needs outpatient f/u.
Needs to complete workup for secondary hypertension prior to undergoing any procedure, as certain precautions would be needed to anesthetize her. Will await workup for this and arrange for close outpatient follow-up followed by colonoscopy.
Data Reviewed
-
CT Scan: Report Reviewed by me
-
-
Thank you for consultation and allowing me to participate in the patient's care. Please call the director zone GI physician during the after hours with any questions or concerns.
[2024-04-23 15:16] VITALS: BP 149/96
--- NOTE | 2024-04-23 15:47 | CHAP ---
Ms Blancas appreciated the chance to share her concerns - said she wasn't feeling right. Client Server Programmer reported this to staff. Dee said she wants to be well enough to help her mother. Emotional support provided.
[2024-04-23] MEDS: LOVENOX 40 MG SC (17:07)
[2024-04-23 23:00] VITALS: BP 126/83
[2024-04-24 06:37] LABS: Hematocrit 33.9 % (37.0-47.0); Hemoglobin 11.8 g/dL (12.0-16.0); Mean Corp Hgb Conc. 34.8 g/dL (33.0-37.0); Mean Corpuscular Hgb 35.1 pg (27.0-31.0); Mean Corpuscular Volume 100.9 fL (81.0-99.0); Mean Platelet Volume 9.3 fL (7.4-10.4); Platelet Count 227 10^3/uL (130-400); Red Blood Cell Count 3.36 10^6/uL (4.20-5.40); Red Cell Dist. Width 12.6 % (11.5-14.5); White Blood Cell Count 4.4 10^3/uL (4.8-10.8)
[2024-04-24 07:00] VITALS: BP 123/70
[2024-04-24 07:00] LABS: ALT (SGPT) 22 U/L (0-35); AST (SGOT) 33 U/L (14-36); Alkaline Phosphatase 91 U/L (38-126); Blood Urea Nitrogen 16 mg/dl (7-17); Calcium 9.1 mg/dl (8.4-10.2); Carbon Dioxide 25 mmol/L (22-30); Chloride 101 mmol/L (98-107); Estimated Creatinine Clearance 70 ml/min; Glucose 98 mg/dl (70-99); Phosphorus 4.1 mg/dl (2.5-4.5); Sodium 137 mmol/L (135-145); Total Bilirubin 0.8 mg/dl (0.2-1.3); Total Protein 6.3 g/dl (6.3-8.2); eGFR > 60.00
--- NOTE | 2024-04-24 07:18 | W.PN.HOSP.TC ---
Today's Communication/Plan
-
pending MRI
discharge planning home with home services
Assessment / Plan
Assessment / Plan
Physical Exam
General: No acute distress appears comfortable at this time
HEENT: NormoCephalic, Moist mucous membranes and Atraumatic
Respiratory: Clear
Cardiac: S1/S2 and Regular Rhythm; No Murmur or Rub
GI: Soft, Non Tender, Non Distended and Normal Bowel Sounds; No Organomegaly
Musculoskeletal: No Clubbing, No Cyanosis and No Edema
Skin: No Rash
Neuro: AOx3
Psych: Calm
58F ETOH abuse anxiety/depression HTN Tobacco abuse
Ambulatory Dysfunction
- Uses walker/cane at home
- CT brain with mild diffuse cerebral and cerebellar atrophy, no acute findings
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
- Basic labs relatively unremarkable. TSH wnl. B12 wnl
- UA notes pyuria otherwise appears asymptomatic UT, follow up urine cx
- completed IVF
- PT/OT consult appreciated home health vs not needs
- CM consult
Alcohol Abuse
- Drinking 3-4 days per week, 3 glasses of wine per day, last drink 04/16 night
- ETOH level (-) on admission
- Suspect ETOH contributing to global cerebellar dysfunction and problem above
- ETOH cessation advised
- MV/FA/Thiamine. Ativan per [facility]WA protocol
- Psych and CM consult appreciated
-In lieu of medical issues/concerns, outpatient ETOH rehab likely more fitting then inpt- to allow flexibility to pursue medical follow ups
Endorses 20 lb weight loss unintentional
CT chest/abd/pelvis w contrast appreciated
-Mild emphysematous lung changes.
-Multiple small pulmonary nodules, as described, measuring up to 5.3 mm. Some of the nodules appear hyperdense and/or calcified, consistent with calcified granulomas. Recommend follow-up in one year.
-Superior right hilar margin mild adenopathy measuring 1.4 cm. Nonspecific.
-Fatty infiltration of liver.
-Heterogeneous complex right adrenal mass measuring up to 2.6 cm. Nonspecific. Possible myelolipoma. Other possible considerations may include changes related to previous infection and/or hemorrhage. Adrenal tumor, such as pheochromocytoma may
also be considered in the proper clinical setting.
-Mild sigmoid diverticulosis. No evidence of acute diverticulitis. Disproportionate degree of slightly asymmetric wall thickening. Although likely related to inflammatory changes of diverticulosis, it would be difficult to exclude an underlying
neoplastic process with certainty. Recommend correlation with colonoscopy.
-Patient later endorses intermittent bloody bowel movements w/ associate abd discomfort. Unclear frequency onset, reported started 'days ago,'
GI eval appreciated outpt follow up for Colonoscopy pending work up Pheo.
Possible Pheo
concern for possible underlying malignancy
Nephro eval appreciated
Oncology eval appreciated
pending MRI
Mild Elevated LFTs
- Likely alcoholic hepatitis.
- viral hepatitis panel neg
- monitor
Hypomagnesemia
monitor and replete as necessary
Macrocytosis
b12, folate wnl
iron studies appreciated Iron non-deficient
Anxiety/Depression
- Reports increasing depression, not taking her medications
- Resume home lexapro,
- Consult Psych appreciated buspirone discontinued in favor of increased wellbutrin later reduced due to concerns regarding possible Pheo
HTN
-likely exacerbated by ETOH withdrawal effect since improved
- cont amlodipine 10mg daily, losartan 100mg daily discontinued as per nephro d/t hyperkalemia (bp remains at goal without)
-prn Hydralazine
BMI 17.9 underweight
encourage good nutrition oral intake
ensure supplement daily added to diet
suspect Failure to Thrive
Diet: Regular
DVT Ppx: Lovenox
Code Status: Full
I spent a total of 40 minutes with the patient or on the floor. More than 50% of this time involved counseling and coordination of care.
Anticipated Discharge: Within 24 hours
Subjective/Interval History
-
Date of Service: April 24, 2024
No acute distress. Appears comfortable. Reports resolution bloody bowel movements. General malaise fatigue persists
Objective Data
-
Labs:
Laboratory Results
04/24/24
06:04
WBC 4.4 L
Hgb 11.8 L
Hct 33.9 L
Plt Count 227
Sodium 137
Potassium 4.0
Chloride 101
Carbon Dioxide 25
BUN 16
Creatinine 0.8
Glucose 98
Calcium 9.1
Total Bilirubin 0.8
AST 33
ALT 22
Alkaline Phosphatase 91
Vital Signs:
Vital Signs
Temp Pulse Resp BP Pulse Ox
97.9 F 73 16 126/83 97
04/23/24 23:00 04/23/24 23:00 04/23/24 23:00 04/23/24 23:00 04/23/24 23:00
I&O
04/23/24 04/24/24 04/25/24
06:59 06:59 06:59
Intake Total 1540 / 1540 1440 / 1440
Balance 1540 / 1540 1440 / 1440
[2024-04-24] MEDS: WELLBUTRIN XL (24 hour extended release) 150 MG PO (07:51)
[2024-04-24] MEDS: FOLVITE 1 MG PO (07:51)
[2024-04-24] MEDS: VITAMIN B1 100 MG PO ×2 (07:51→20:46)
[2024-04-24] MEDS: PROTONIX 40 MG PO (07:52)
[2024-04-24] MEDS: MAGNESIUM OXIDE 500 MG PO ×2 (07:52→20:46)
[2024-04-24] MEDS: THERAGRAN 1 TABLET PO (07:52)
[2024-04-24] MEDS: CLARITIN 10 MG PO (07:52)
[2024-04-24] MEDS: LEXAPRO 10 MG PO (07:52)
[2024-04-24] MEDS: NICODERM TRANSDERMAL 14 MG TRANSDERM (07:53)
[2024-04-24] MEDS: NORVASC 5 MG PO (08:51)
[2024-04-24 09:45] LABS: Aldosterone/Renin Activ Ratio 0.3 ratio (<=25.0); Renin Activity Results 17.8 ng/mL/hr
--- NOTE | 2024-04-24 11:50 | W.PN.NEPH.PH ---
Today's Communication / Plan
-
Sign off
Assessment/Plan
-
Assessment
Hypertension
Hypokalemia
Alcoholism
Pulmonary nodules
Right adrenal fullness
Plan
electrolytes normalized
Blood pressure well-controlled on amlodipine
Secondary workup for hypertension will be initiated at this time: pending
Checked ARR, metanephrines catecholamines: pending
Checked 24-hour urine 5 HIAA:pending
hold ARB/K given previous hyperkalemia and bp remains low side on amlodipine
We will sign off his blood pressure is well-controlled on minimal agents
If her secondary hypertensive workup ends up being abnormal contact us back
-
-
Date of Service: April 24, 2024
CC / HPI / ROS
-
Chief Complaint:
HTN
History of Present Illness:
BP stable
K down to 4.
Review of Systems:
no CP/SOB
Labs
-
Labs:
WBC 4.4 10^3/uL (4.8-10.8) L 04/24/24 06:04
RBC 3.36 10^6/uL (4.20-5.40) L 04/24/24 06:04
Hgb 11.8 g/dL (12.0-16.0) L 04/24/24 06:04
Hct 33.9 % (37.0-47.0) L 04/24/24 06:04
Plt Count 227 10^3/uL (130-400) 04/24/24 06:04
Sodium 137 mmol/L (135-145) 04/24/24 06:04
Potassium 4.0 mmol/L (3.5-5.1) 04/24/24 06:04
Chloride 101 mmol/L (98-107) 04/24/24 06:04
Carbon Dioxide 25 mmol/L (22-30) 04/24/24 06:04
BUN 16 mg/dl (7-17) 04/24/24 06:04
Creatinine 0.8 mg/dL (0.6-1.0) 04/24/24 06:04
eGFR > 60.00 04/24/24 06:04
Glucose 98 mg/dl (70-99) 04/24/24 06:04
Calcium 9.1 mg/dl (8.4-10.2) 04/24/24 06:04
Phosphorus 4.1 mg/dl (2.5-4.5) 04/24/24 06:04
Albumin 3.0 g/dl (3.5-5.0) L 04/24/24 06:04
Physical Exam
-
Vital Signs:
Vital Signs
Temp Pulse Resp BP Pulse Ox
97.7 F 67 17 123/70 96
04/24/24 07:00 04/24/24 07:00 04/24/24 07:00 04/24/24 08:51 04/24/24 07:00
Cardiovascular:: Regular rate and rhythm
[2024-04-24 15:00] VITALS: BP 120/79
[2024-04-24 16:21] VITALS: BP 122/81; BP 127/89; PULSE 82; O2SAT 97
[2024-04-24] MEDS: LOVENOX 40 MG SC (17:11)
[2024-04-24 23:49] VITALS: BP 122/87
--- NOTE | 2024-04-25 07:29 | W.PN.HOSP.TC ---
Today's Communication/Plan
-
Discharge today
Assessment / Plan
Assessment / Plan
58F ETOH abuse anxiety/depression HTN Tobacco abuse
Ambulatory Dysfunction
- Uses walker/cane at home
- CT brain with mild diffuse cerebral and cerebellar atrophy, no acute findings
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
- Basic labs relatively unremarkable. TSH wnl. B12 wnl
- UA notes pyuria otherwise appears asymptomatic UT, follow up urine cx
- completed IVF
- PT/OT consult appreciated home health vs not needs
-Discharge today
Alcohol Abuse
- Drinking 3-4 days per week, 3 glasses of wine per day, last drink 04/16 night
- ETOH level (-) on admission
- Suspect ETOH contributing to global cerebellar dysfunction and problem above
- ETOH cessation advised
- MV/FA/Thiamine. Ativan per [facility]WA protocol
- Psych and CM consult appreciated
-In lieu of medical issues/concerns, outpatient ETOH rehab likely more fitting then inpt- to allow flexibility to pursue medical follow ups
Endorses 20 lb weight loss unintentional
CT chest/abd/pelvis w contrast appreciated
-Mild emphysematous lung changes.
-Multiple small pulmonary nodules, as described, measuring up to 5.3 mm. Some of the nodules appear hyperdense and/or calcified, consistent with calcified granulomas. Recommend follow-up in one year.
-Superior right hilar margin mild adenopathy measuring 1.4 cm. Nonspecific.
-Fatty infiltration of liver.
-Heterogeneous complex right adrenal mass measuring up to 2.6 cm. Nonspecific. Possible myelolipoma. Other possible considerations may include changes related to previous infection and/or hemorrhage. Adrenal tumor, such as pheochromocytoma may also
be considered in the proper clinical setting.
-Mild sigmoid diverticulosis. No evidence of acute diverticulitis. Disproportionate degree of slightly asymmetric wall thickening. Although likely related to inflammatory changes of diverticulosis, it would be difficult to exclude an underlying
neoplastic process with certainty. Recommend correlation with colonoscopy.
-Patient later endorses intermittent bloody bowel movements w/ associate abd discomfort. Unclear frequency onset, reported started 'days ago,'
GI eval appreciated outpt follow up for Colonoscopy pending work up Pheo.
Possible Pheo
concern for possible underlying malignancy
Nephro eval appreciated
Oncology eval appreciated
Abdominal MRI shows right adrenal adenoma
Mild Elevated LFTs
- Likely alcoholic hepatitis.
- viral hepatitis panel neg
- monitor
Hypomagnesemia
monitor and replete as necessary
Macrocytosis
b12, folate wnl
iron studies appreciated Iron non-deficient
Anxiety/Depression
- Reports increasing depression, not taking her medications
- Resume home lexapro,
- Consult Psych appreciated buspirone discontinued in favor of increased wellbutrin later reduced due to concerns regarding possible Pheo
HTN
-likely exacerbated by ETOH withdrawal effect since improved
- cont amlodipine 10mg daily, losartan 100mg daily discontinued as per nephro d/t hyperkalemia (bp remains at goal without)
-prn Hydralazine
BMI 17.9 underweight
encourage good nutrition oral intake
ensure supplement daily added to diet
suspect Failure to Thrive
DVT prophylaxis�Lovenox
Full code
Physical Exam
General: Thin, no acute distress
HEENT: Normocephalic, Atraumatic, EOMI, MMM
Respiratory: Clear to Auscultation bilaterally
Cardiac: Normal S1/S2, Regular Rate and Rhythm
GI: Soft, Nontender, Nondistended, Normal Bowel Sounds
Extremities: No Clubbing, Cyanosis, or Edema
Neuro: Nonfocal/Grossly Intact
Psych: Calm, Cooperative
Derm: No Visible lesions
Anticipated Discharge: Today
Subjective/Interval History
-
Date of Service: April 25, 2024
Continues to have intermittent bloody stools. No fever, no vomiting.
Objective Data
-
Labs:
Laboratory Results
04/25/24
07:14
WBC Pending
Hgb Pending
Hct Pending
Plt Count Pending
Sodium Pending
Potassium Pending
Chloride Pending
Carbon Dioxide Pending
BUN Pending
Creatinine Pending
Glucose Pending
Calcium Pending
Total Bilirubin Pending
AST Pending
ALT Pending
Alkaline Phosphatase Pending
Vital Signs:
Vital Signs
Temp Pulse Resp BP Pulse Ox
97.8 F 73 16 122/87 97
04/24/24 23:49 04/24/24 23:49 04/24/24 23:49 04/24/24 23:49 04/24/24 23:49
I&O
04/24/24 04/25/24 04/26/24
06:59 06:59 06:59
Intake Total 1440 / 1440 1580 / 1580
Balance 1440 / 1440 1580 / 1580
[2024-04-25] MEDS: NICODERM TRANSDERMAL 14 MG TRANSDERM (07:30)
[2024-04-25] MEDS: THERAGRAN 1 TABLET PO (07:30)
[2024-04-25] MEDS: FOLVITE 1 MG PO (07:30)
[2024-04-25] MEDS: MAGNESIUM OXIDE 500 MG PO ×2 (07:30→20:42)
[2024-04-25] MEDS: VITAMIN B1 100 MG PO ×2 (07:30→20:42)
[2024-04-25] MEDS: CLARITIN 10 MG PO (07:30)
[2024-04-25] MEDS: PROTONIX 40 MG PO (07:30)
[2024-04-25] MEDS: LEXAPRO 10 MG PO (07:30)
[2024-04-25] MEDS: WELLBUTRIN XL (24 hour extended release) 150 MG PO (07:31)
[2024-04-25 07:41] LABS: Mean Corp Hgb Conc. 35.3 g/dL (33.0-37.0); Mean Corpuscular Hgb 36.8 pg (27.0-31.0); Mean Corpuscular Volume 104.3 fL (81.0-99.0); Mean Platelet Volume 9.3 fL (7.4-10.4); Platelet Count 229 10^3/uL (130-400); Red Blood Cell Count 3.26 10^6/uL (4.20-5.40); Red Cell Dist. Width 12.5 % (11.5-14.5); White Blood Cell Count 4.4 10^3/uL (4.8-10.8)
[2024-04-25 07:59] VITALS: BP 126/73
[2024-04-25] MEDS: NORVASC 5 MG PO (08:20)
[2024-04-25] MEDS: DRISDOL (VITAMIN D2) 50000 UNITS PO (08:20)
[2024-04-25 08:40] LABS: ALT (SGPT) 19 U/L (0-35); AST (SGOT) 32 U/L (14-36); Albumin 3.1 g/dl (3.5-5.0); Alkaline Phosphatase 79 U/L (38-126); Blood Urea Nitrogen 13 mg/dl (7-17); Calcium 9.2 mg/dl (8.4-10.2); Carbon Dioxide 28 mmol/L (22-30); Chloride 101 mmol/L (98-107); Estimated Creatinine Clearance 70 ml/min; Glucose 84 mg/dl (70-99); Magnesium 1.9 mg/dl (1.6-2.3); Phosphorus 3.8 mg/dl (2.5-4.5); Sodium 138 mmol/L (135-145); Total Bilirubin 0.8 mg/dl (0.2-1.3); Total Protein 6.4 g/dl (6.3-8.2); eGFR > 60.00
[2024-04-25 11:06] LABS: 24 Hour Urine Total Volume Random mL; 5HIAA, Urine 1.7 mg/L; 5HIAA/Creatinine Ratio 5 mg/gCR (0-14); Creatinine, Urine per Volume 33 mg/dL; Urine Collection Length Random hr
[2024-04-25 15:34] VITALS: BP 138/85
--- NOTE | 2024-04-25 15:36 | CM ---
Addendum entered by RIAN Carreon 04/25/24 17:12:
Spoke with patient who stated that her son will pick her up as she has been discharged. 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 Patient appeared
confused. She stated that her son will be home as well as he works from home. Patient was talking about going back to work. CM advised that she should follow medical advisement regarding when to return.
Spoke with RN who stated that patient's son is not going to pick patient up. Attending is updated. Will call patient's son to determine who is home for support as patient has multiple follow up appointments and wants to go to etoh rehab after she is
discharged.
Original Note:
Reviewed chart, patient medically stable for discharge. Met with patient who denied SNF or VN. She stated that her son lives with her and is home throughout the day. She stated that she will rely on family to help with her immediate needs.
Plan: Case management will continue to follow and assist with discharge planning. Home.
--- NOTE | 2024-04-25 16:43 | PTCARENOTE ---
Discussed discharge information with Pt. Asked Pt x2 when her son would be picking her up. Pt called her son who stated ' mom we talked about this, you need to go to rehab before you come home'. Communicated with CM regarding this information,
also aware and discharge order cancelled. Pt informed that she will not being leaving today.
[2024-04-25] MEDS: LOVENOX 40 MG SC (17:02)
[2024-04-25 23:00] VITALS: BP 127/80
[2024-04-26 07:32] VITALS: BP 123/73
[2024-04-26] MEDS: NORVASC 5 MG PO (07:50)
[2024-04-26] MEDS: MAGNESIUM OXIDE 500 MG PO ×2 (07:50→20:33)
[2024-04-26] MEDS: VITAMIN B1 100 MG PO ×2 (07:50→20:34)
[2024-04-26] MEDS: THERAGRAN 1 TABLET PO (07:51)
[2024-04-26] MEDS: CLARITIN 10 MG PO (07:51)
[2024-04-26] MEDS: LEXAPRO 10 MG PO (07:52)
[2024-04-26] MEDS: FOLVITE 1 MG PO (07:52)
[2024-04-26] MEDS: WELLBUTRIN XL (24 hour extended release) 150 MG PO (07:52)
[2024-04-26] MEDS: PROTONIX 40 MG PO (07:52)
[2024-04-26] MEDS: NICODERM TRANSDERMAL 14 MG TRANSDERM (07:52)
--- NOTE | 2024-04-26 09:08 | W.PN.HOSP.TC ---
Today's Communication/Plan
-
Start IVFs
Ask GI to re-eval
Assessment / Plan
Assessment / Plan
58F ETOH abuse anxiety/depression HTN Tobacco abuse
Abdominal pain/nausea/loose stools
-Reports a history of Crohn's disease in her family
-Denies blood at this time
-Abd CT -Mild sigmoid diverticulosis. No evidence of acute diverticulitis. Disproportionate degree of slightly asymmetric wall thickening. Although likely related to inflammatory changes of diverticulosis, it would be difficult to exclude an
underlying neoplastic process with certainty. Recommend correlation with colonoscopy.
-Seen by GI last week, will asked them to reevaluate
-Start IV fluids
Ambulatory Dysfunction
- Uses walker/cane at home
- CT brain with mild diffuse cerebral and cerebellar atrophy, no acute findings
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
- Basic labs relatively unremarkable. TSH wnl. B12 wnl
- UA notes pyuria otherwise appears asymptomatic UT, follow up urine cx
- completed IVF
- PT/OT consult appreciated home health vs not needs
Alcohol Abuse
- Drinking 3-4 days per week, 3 glasses of wine per day, last drink 04/16 night
- ETOH level (-) on admission
- Suspect ETOH contributing to global cerebellar dysfunction and problem above
- ETOH cessation advised
- MV/FA/Thiamine. Ativan per [facility]WA protocol
- Psych and CM consult appreciated
- In lieu of medical issues/concerns, outpatient ETOH rehab likely more fitting then inpt- to allow flexibility to pursue medical follow ups
Endorses 20 lb weight loss unintentional
CT chest/abd/pelvis w contrast appreciated
-Mild emphysematous lung changes.
-Multiple small pulmonary nodules, as described, measuring up to 5.3 mm. Some of the nodules appear hyperdense and/or calcified, consistent with calcified granulomas. Recommend follow-up in one year.
-Superior right hilar margin mild adenopathy measuring 1.4 cm. Nonspecific.
-Fatty infiltration of liver.
-Heterogeneous complex right adrenal mass measuring up to 2.6 cm. Nonspecific. Possible myelolipoma. Other possible considerations may include changes related to previous infection and/or hemorrhage. Adrenal tumor, such as pheochromocytoma may also
be considered in the proper clinical setting.
-Workup for pheochromocytoma negative
-Abdominal MRI shows right adrenal adenoma
Mild Elevated LFTs
- Likely alcoholic hepatitis.
- viral hepatitis panel neg
- monitor
Hypomagnesemia
monitor and replete as necessary
Macrocytosis
b12, folate wnl
iron studies appreciated Iron non-deficient
Anxiety/Depression
- Reports increasing depression, not taking her medications
- Resume home lexapro,
- Consult Psych appreciated buspirone discontinued in favor of increased wellbutrin later reduced due to concerns regarding possible Pheo
HTN
-likely exacerbated by ETOH withdrawal effect since improved
-cont amlodipine 5mg daily. losartan 100mg daily discontinued as per nephro d/t hyperkalemia (bp remains at goal without)
-prn Hydralazine
Severe protein calorie malnutrition
BMI 17.9
ensure supplement daily added to diet
DVT prophylaxis�Lovenox
Full code
Total time spent to see the patient on the floor, examine the patient, review data and lab results, discuss treatment plan with patient, nursing staff around 55 minutes.
Physical Exam
General: Thin, no acute distress
HEENT: Normocephalic, Atraumatic, EOMI, MMM
Respiratory: Clear to Auscultation bilaterally
Cardiac: Normal S1/S2, Regular Rate and Rhythm
GI: Soft, tender at lower quadrants, Nondistended, Normal Bowel Sounds
Extremities: No Clubbing, Cyanosis, or Edema
Neuro: Nonfocal/Grossly Intact
Psych: Calm, Cooperative
Derm: No Visible lesions
Anticipated Discharge: 24 - 48 hours
Subjective/Interval History
-
Date of Service: April 26, 2024
Patient complains of abdominal pain and loose stools. Denies blood in stool. She is also nauseous. No fever, no vomiting.
Objective Data
-
Vital Signs:
Vital Signs
Temp Pulse Resp BP Pulse Ox
98.5 F 73 16 123/73 100
04/26/24 07:32 04/26/24 07:32 04/26/24 07:32 04/26/24 07:50 04/26/24 07:32
I&O
04/25/24 04/26/24 04/27/24
06:59 06:59 06:59
Intake Total 1580 / 1580 720 / 720
Balance 1580 / 1580 720 / 720
--- NOTE | 2024-04-26 09:18 | CM ---
Addendum entered by RIAN Carreon 04/26/24 12:53:
Spoke with attending who stated that patient getting GI w/u, therefore discharge on hold. Will continue to connect with her son regarding patient returning home.
Original Note:
Reviewed chart, placed a call to patient's son to discuss discharge planning however there was no answer. Left a voice mail message and encouraged return call to discuss discharge planning.
Spoke with attending who stated that psych will see again. Patient wants to return home.
Plan: Case management will continue to follow and assist with discharge planning. Home with outpatient rehab for etoh.
--- NOTE | 2024-04-26 10:07 | W.PN.ONC2 ---
Today's Communication / Plan
-
medical oncology will sign off
Impression
Impression
# Adrenal mass, etiology unclear- MRI favors an adrenal adenoma with internal cystic or necrotic component.
#Lung nodules - tiny, etiology unclear
# Elevated iron sat and ferritin - suspect elevation in the setting of alcohol enhancing GI absorption
Plan
Plan
Pheo not a common cancer.
No findings strongly suspicious of malignancy.
Chest in 6-12 months to verify stability of lung nodules with PMH
adrenal adenoma with internal cystic or necrotic component. Suggest continued imaging follow-up to confirm stability with PMD
Macrocytosis in setting of ETOH abuse, No B12 or folate deficiency and no significant cytopenias. PMD/psych follow up for cessation
20lb unintentional weight loss, rectal bleeding, elevated LFTs -GI following
Subjective/Objective
Chief Complaint
pt tells me that she reported abdominal pain to her nurse and awaiting feedback from the hospitalist
Subjective
afebrile, no hypoxia or hypotension
Vital Signs:
Vital Signs
Temp Pulse Resp BP Pulse Ox
98.5 F 73 16 123/73 100
04/26/24 07:32 04/26/24 07:32 04/26/24 07:32 04/26/24 07:50 04/26/24 07:32
Lab Results:
Laboratory Data
WBC 4.4 10^3/uL (4.8-10.8) L 04/25/24 07:14
Hgb 12.0 g/dL (12.0-16.0) 04/25/24 07:14
Plt Count 229 10^3/uL (130-400) 04/25/24 07:14
PT 13.0 Sec (11.4-14.6) 04/19/24 12:11
INR 0.98 04/19/24 12:11
APTT 27.0 Sec (23.4-35.0) 04/19/24 12:11
eGFR > 60.00 04/25/24 07:14
Physical Exam
General: appears older than stated age
Cardiology: Normal Sinus Rhythm, S1 and S2
Pulmonary: Clear; Negative Wheezes
GI: Soft
Musculoskeletal: No Edema
Extremities: no edema
Neurology: speech clear
Skin: Warm and Dry
Review of Systems
Review of Systems
ROS notable for subjective, otherwise negative
--- NOTE | 2024-04-26 11:00 | W.PN.UPDATE ---
Update Note
Progress Note Update
Patient seen at bedside, chart reviewed, discussed with RN. Ms. Blancas reports doing well overall but currently has some GI issues with diarrhea. She was DC yesterday however, Son demanded she go to IP rehab for ETOH tx first. Patient had denied
IP previously but is now open to this. It had been discussed that OP ETOH tx may be best given her need for continued medical work up. [facility] to see. She does admit feeling less depressed and hopeless. She is sleeping fairly well.
Impression/Recommendations: Alcohol abuse; Major depressive disorder - Continue with Lexapro and Wellbutrin. ETOH treatment, either IP or OP would be appropriate. She does plan to abstain from ETOH.
--- NOTE | 2024-04-26 11:06 | PN.CDI ---
CDI
- -
CDI:
Physician Documentation Request
Admit Date: 04/24/24 09:48
Dear Doctor Do,
Patient admitted for ambulatory dysfunction.
04/18 Telephone Operators Supervisor Assessment:'CBW (04/17) 128lb 1.417oz BMI 17 .9 underwt/ht. Weight hx- () 174lb 2. 6oz Unintentional 46lb, 36% significant wt loss over the past 6 months. Pt reports that she hasn't been eating as much due to mental
health struggles. Was unaware that she had lost so much weight...Pt meets ASPEN criteria for severe protein calorie malnutrition of chronic illness with > 10% wt loss x 6months, prolonged poor po intake prior to admission. Pt declined Ensure
supplements at this time.'
Based on the above information and your assessment, which of the following most accurately represents the patient's nutritional status?
Severe protein calorie malnutrition
Other
[place] Criteria (ACP Hospitalist 2017)
2 or more criteria must be present for either
non severe or severe malnutrition
Note that the criteria differs related to the
presence of an acute or chronic illness
Acute Illness Chronic Illness
Energy Intake Non Severe: <75% for >7 days Non Severe: <75% for >1 month
Severe: <50% for >5 days Severe: <75% for >1 month
Weight Loss Non Severe: 1-2% over 1 week Non Severe: 5% over 1 month
5% over 1 month 7.5% over 3 months
7.5% over 3 months 10% over 6 months
1 year N/A 20% over 1 year
Severe: >2% over 1 week Severe: >5% over 1 month
>5% over 1 month >7.5% over 3 months
>7.5% over 3 months >10% over 6 months
1 year N/A >20% over 1 year
Body Fat Non Severe: Mild Decrease Non Severe: Mild Loss
Severe: Moderate Decrease Severe: Severe Loss
Muscle Mass Non Severe: Mild Decrease Non Severe: Mild Loss
Severe: Moderate Decrease Severe: Severe Loss
Fluid Accumulation Non Severe: Mild Accumulation Non Severe: Mild Accumulation
Severe: Moderate to severe Severe: Moderate to severe
accumulation accumulation
Reduced Screw Machine Setter Strength Non Severe: N/A Non Severe: N/A
Severe: Measurably reduced Severe: Measurably reduced
Additional criteria that can be used to Determine if Mild or Moderate Malnutrition ([employer]ck Manual 2018)
Mild Moderate Severe
Albumin gm/dl <3.0 gm/dl <2.5 gm/dl <2.0 gm/dl
Pre Albumin mg/dl <15 gm/dl <10 mg/dl <5.0 mg/dl
BMI <18.5 <17 <16
Use of terms such as suspected, likely, concern for, or probable (associated with a specific diagnosis that is being evaluated, monitored, or treated as if it exists) are acceptable and can be coded in the inpatient setting, when documented at the
time of discharge.
Thank you,
Terri Hand RN, BSN
CDI Specialist
Available via [employer] text
Please use your independent medical judgment in providing your response.
[2024-04-26] MEDS: ZOFRAN ODT (ORALLY DISINTEGRATING) 4 MG PO (12:57)
--- NOTE | 2024-04-26 13:27 | W.PN.GI.CBS2 ---
Addendum entered and electronically signed by Sheela Sosa DO 04/26/24 14:49:
The patient was seen and examined by me independently in collaboration with the nurse practitioner.
Past medical history/social history/medications/allergies/family history reviewed.
Lab data and imaging data reviewed.
Patient evaluated by GI upon admission for abnormal imaging and reports of small-volume hematochezia. She was being set up for discharge to inpatient rehab for etoh detox, however, d/c held due to acute onset lower abdominal pain earlier this
morning followed by 1 episode of loose, nonbloody stool. Currently, patient resting comfortably in bed, complains of lower abd. pain, but slightly decreased from time of onset. Of note, patient on magox 500mg BID, however, has been receiving it for
the last few days.
Agree with plan as outlined above. Check Xray to assess stool burden, as could represent overflow diarrhea in setting of chronic constipation. If has recurrence of diarrhea, check stool studies.
Original Note:
Today's Communication / Plan
-
etiology of abdominal pain related to mild diverticulitis noted on prior CT, constipation with overflow vs other
check stool studies
check Abd X ray for stool burden
CT as noted will need follow up to discuss colonoscopy with rectal thickening
ETOH abstinence
s/p MRI and oncology follow up with adrenal mas
Assessment / Plan
-
58-year-old female with history of alcohol abuse, tobacco abuse, hypertension, anxiety and depression admitted with ambulatory dysfunction and electrolyte abnormalities likely secondary to alcohol abuse resulting in vitamin and mineral all
deficiencies found to have abnormalities on imaging with plan for OP follow up but noted with abdominal pain and diarrhea prior to discharged
04/25 MR abdomen -- 3 cm right adrenal gland mass with heterogeneous signal and enhancement. The presence of intracytoplasmic lipid would favor an adrenal adenoma. Recommend correlation with outside imaging if available. Otherwise, suggest continued
imaging follow-up to confirm stability.
#diarrhea
#Abnormal CT Scan with wall thickening
#Rectal Bleeding
#Unintentional Weight loss
#CT with complex right adrenal mass s/p follow up MRI
#Alcohol Abuse
#Elevated LFTs
#hepatic steatosis
#HTN on admission
PLAN:
etiology of abdominal pain related to mild diverticulitis noted on prior CT, constipation with overflow vs other
check stool studies
check Abd X ray for stool burden
CT as noted will need follow up to discuss colonoscopy with rectal thickening
ETOH abstinence
s/p MRI and oncology follow up with adrenal mass
Subjective
Subjective
Date of Service: April 26, 2024
asked to reassess for abdominal pain and diarrhea
Objective
Data Reviewed
Laboratory Data:
Laboratory Results
04/25/24 07:14
04/25/24 07:14
Laboratory Results
PT 13.0 Sec (11.4-14.6) 04/19/24 12:11
INR 0.98 04/19/24 12:11
APTT 27.0 Sec (23.4-35.0) 04/19/24 12:11
Phosphorus 3.8 mg/dl (2.5-4.5) 04/25/24 07:14
Magnesium 1.9 mg/dl (1.6-2.3) 04/25/24 07:14
Total Bilirubin 0.8 mg/dl (0.2-1.3) 04/25/24 07:14
AST 32 U/L (14-36) 04/25/24 07:14
ALT 19 U/L (0-35) 04/25/24 07:14
Alkaline Phosphatase 79 U/L (38-126) 04/25/24 07:14
Lipase 122 U/L (23-300) 04/19/24 06:02
Vital Signs and I&O:
Vital Signs
Temp Pulse Resp BP Pulse Ox
98.5 F 73 16 123/73 100
04/26/24 07:32 04/26/24 07:32 04/26/24 07:32 04/26/24 07:50 04/26/24 07:32
I&O
04/25/24 04/26/24 04/27/24
06:59 06:59 06:59
Intake Total 1580 / 1580 720 / 720
Balance 1580 / 1580 720 / 720
Physical Exam
Physical Exam
HEENT: Anicteric and Moist mucous membranes
Cardiology: Normal Sinus Rhythm
Pulmonary: Clear
GI: Soft, Distended and Tender (lower abdomen )
Extremities: No Edema
Neuro: Non Focal
[2024-04-26] MEDS: NSS 1000 IV (13:55)
[2024-04-26 15:30] VITALS: BP 161/104
[2024-04-26] MEDS: LOVENOX 40 MG SC (17:27)
--- NOTE | 2024-04-26 18:15 | PTCARENOTE ---
complains of abdominal cramps and loose frequent stools. MD notified. GI consulted and ordered stool studies and abd xray. hat was placed on the toilet and patient was educated on using the toilet with the hat for specimen collection. when checking
on the patient during routine rounds this nurse noted loose BM on the floor and soiled clothes in the bathroom. patient stated she went to the bathroom to have a bowel movement and had an accident. she admitted removing the hat from under the toilet
seat. no specimen collected. will attempt to obtain another specimen. private room assignment pending
[2024-04-26 23:00] VITALS: BP 146/102
--- NOTE | 2024-04-27 01:58 | PTCARENOTE ---
Pt has med sitter in room due to compulsive behavior.
--- NOTE | 2024-04-27 02:19 | PTCARENOTE ---
Pt has med sitter in room due to compulsive behavior.
[2024-04-27] MEDS: NSS 1000 IV (06:00)
[2024-04-27 07:24] LABS: Blood Urea Nitrogen 22 mg/dl (7-17); Carbon Dioxide 22 mmol/L (22-30); Chloride 100 mmol/L (98-107); Estimated Creatinine Clearance 80 ml/min; Glucose 134 mg/dl (70-99); Sodium 134 mmol/L (135-145); eGFR > 60.00
[2024-04-27 07:37] LABS: Platelet Count 335 10^3/uL (130-400)
[2024-04-27 07:41] VITALS: BP 149/94
[2024-04-27 07:58] LABS: Erythrocyte Sed Rate 45 mm/hour (0-20)
[2024-04-27 08:19] LABS: Hematocrit 38.4 % (37.0-47.0); Hemoglobin 13.6 g/dL (12.0-16.0); Mean Corp Hgb Conc. 35.4 g/dL (33.0-37.0); Mean Corpuscular Hgb 35.1 pg (27.0-31.0); Mean Corpuscular Volume 99.2 fL (81.0-99.0); Mean Platelet Volume 9.4 fL (7.4-10.4); Red Blood Cell Count 3.87 10^6/uL (4.20-5.40); Red Cell Dist. Width 12.7 % (11.5-14.5); White Blood Cell Count 12.6 10^3/uL (4.8-10.8)
--- NOTE | 2024-04-27 08:33 | W.PN.HOSP.TC ---
Today's Communication/Plan
-
see bold
Assessment / Plan
Assessment / Plan
58F ETOH abuse anxiety/depression HTN Tobacco abuse
Abdominal pain/nausea/loose stools
Mild diverticulitis on CT
-Reports a history of Crohn's disease in her family
-Denies blood at this time
-Abd CT -Mild sigmoid diverticulosis. No evidence of acute diverticulitis. Disproportionate degree of slightly asymmetric wall thickening. Although likely related to inflammatory changes of diverticulosis, it would be difficult to exclude an
underlying neoplastic process with certainty. Recommend correlation with colonoscopy.
-Seen by GI again, rec checking stool studies
-Abd XR neg for constipation
Ambulatory Dysfunction
- Uses walker/cane at home
- CT brain with mild diffuse cerebral and cerebellar atrophy, no acute findings
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
- Basic labs relatively unremarkable. TSH wnl. B12 wnl
- UA notes pyuria otherwise appears asymptomatic UT, follow up urine cx
- completed IVF
- PT/OT consult appreciated home health vs not needs
Alcohol Abuse
- Drinking 3-4 days per week, 3 glasses of wine per day, last drink 04/16 night
- ETOH level (-) on admission
- Suspect ETOH contributing to global cerebellar dysfunction and problem above
- ETOH cessation advised
- MV/FA/Thiamine. Ativan per CIWA protocol
- Psych and CM consult appreciated
- In lieu of medical issues/concerns, outpatient ETOH rehab likely more fitting then inpt- to allow flexibility to pursue medical follow ups
20 lb weight loss unintentional
Right adrenal adenoma
-CT chest/abd/pelvis w contrast appreciated
-Mild emphysematous lung changes.
-Multiple small pulmonary nodules, as described, measuring up to 5.3 mm. Some of the nodules appear hyperdense and/or calcified, consistent with calcified granulomas. Recommend follow-up in one year.
-Superior right hilar margin mild adenopathy measuring 1.4 cm. Nonspecific.
-Fatty infiltration of liver.
-Heterogeneous complex right adrenal mass measuring up to 2.6 cm. Nonspecific. Possible myelolipoma. Other possible considerations may include changes related to previous infection and/or hemorrhage. Adrenal tumor, such as pheochromocytoma may also
be considered in the proper clinical setting.
-Workup for pheochromocytoma negative
-Abdominal MRI shows right adrenal adenoma
-Appreciate oncology input, no findings to suggest malignancy
-Recommend repeat chest CT in 6�months to verify stability of lung nodules
-Check HIV
Mild Elevated LFTs
- Likely alcoholic hepatitis.
- viral hepatitis panel neg
- monitor
Hypomagnesemia
monitor and replete as necessary
Macrocytosis
b12, folate wnl
iron studies appreciated Iron non-deficient
Anxiety/Depression
- Reports increasing depression, not taking her medications
- Resumed home lexapro
- Consult Psych appreciated buspirone discontinued in favor of increased wellbutrin
HTN
-likely exacerbated by ETOH withdrawal effect since improved
-cont amlodipine 5mg daily. losartan 100mg daily discontinued as per nephro d/t hyperkalemia (bp remains at goal without)
-prn Hydralazine
Cigarette nicotine dependenc
-continue nicotine patch
Severe protein calorie malnutrition
BMI 17.9
ensure supplement daily added to diet
DVT prophylaxis�Lovenox
Full code
Total time spent to see the patient on the floor, examine the patient, review data and lab results, discuss treatment plan with patient, nursing staff around 53 minutes.
Physical Exam
General: Thin, no acute distress
HEENT: Normocephalic, Atraumatic, EOMI, MMM
Respiratory: Clear to Auscultation bilaterally
Cardiac: Normal S1/S2, Regular Rate and Rhythm
GI: Soft, tender at lower quadrants, Nondistended, Normal Bowel Sounds
Extremities: No Clubbing, Cyanosis, or Edema
Neuro: Nonfocal/Grossly Intact
Psych: Calm, Cooperative
Derm: No Visible lesions
Anticipated Discharge: 24 - 48 hours
Subjective/Interval History
-
Date of Service: April 27, 2024
Patient reports her abdominal pain is 6 out of 10 in intensity. She did not have any stools in the morning, but nurse reported diarrhea in the afternoon. She complains of headache and nausea. No fever.
Objective Data
-
Labs:
Laboratory Results
04/27/24
06:44
WBC 12.6 H
Hgb 13.6
Hct 38.4
Plt Count 335 D
Sodium 134 L
Potassium 4.0
Chloride 100
Carbon Dioxide 22
BUN 22 H
Creatinine 0.7
Glucose 134 H
Calcium 9.0
Vital Signs:
Vital Signs
Temp Pulse Resp BP Pulse Ox
98 F 88 15 149/94 94
04/27/24 07:41 04/27/24 07:41 04/27/24 07:41 04/27/24 07:41 04/27/24 07:41
I&O
04/26/24 04/27/24 04/28/24
06:59 06:59 06:59
Intake Total 720 / 720 1620 / 1620
Output Total 900 / 900
Balance 720 / 720 720 / 720
[2024-04-27] MEDS: NICODERM TRANSDERMAL 14 MG TRANSDERM (09:07)
[2024-04-27] MEDS: NORVASC 5 MG PO (09:08)
[2024-04-27] MEDS: LEXAPRO 10 MG PO (09:13)
[2024-04-27] MEDS: PROTONIX 40 MG PO (09:13)
[2024-04-27] MEDS: FOLVITE 1 MG PO (09:13)
[2024-04-27] MEDS: WELLBUTRIN XL (24 hour extended release) 150 MG PO (09:13)
[2024-04-27] MEDS: THERAGRAN 1 TABLET PO (09:13)
[2024-04-27] MEDS: VITAMIN B1 100 MG PO ×2 (09:13→20:59)
[2024-04-27] MEDS: MAGNESIUM OXIDE 500 MG PO ×2 (09:13→20:59)
[2024-04-27] MEDS: CLARITIN 10 MG PO (09:13)
[2024-04-27 12:00] VITALS: BP 163/108; PULSE 88
--- NOTE | 2024-04-27 12:40 | CM ---
CM following re: discharge planning.
Reviewed pt's chart, met with pt.
PT and OT evaluations noted - Home PT/OT recommended. pt is awre, expressed her agreement and she preferred [facility]. A referral to [facility] made.
[facility] following. pt agrees with outpatient D&A rehab program.
D/C plan: home with [facility] and family support. [facility] following.
CM will follow with discharge plan updates as hospitalization progresses
[2024-04-27] MEDS: TYLENOL 650 MG PO (12:43)
[2024-04-27] MEDS: ZOFRAN 4 MG IV ×2 (12:47→22:06)
--- NOTE | 2024-04-27 13:34 | W.PN.GI.CBS2 ---
Today's Communication / Plan
-
clinicall improved. GI will sign off, please call with questions.
Assessment / Plan
-
58-year-old female with history of alcohol abuse, tobacco abuse, hypertension, anxiety and depression admitted with ambulatory dysfunction and electrolyte abnormalities likely secondary to alcohol abuse resulting in vitamin and mineral all
deficiencies found to have abnormalities on imaging with plan for OP follow up but noted with abdominal pain and diarrhea prior to discharged
04/25 MR abdomen -- 3 cm right adrenal gland mass with heterogeneous signal and enhancement. The presence of intracytoplasmic lipid would favor an adrenal adenoma. Recommend correlation with outside imaging if available. Otherwise, suggest continued
imaging follow-up to confirm stability.
#diarrhea
#Abnormal CT Scan with wall thickening
#Rectal Bleeding
#Unintentional Weight loss
#CT with complex right adrenal mass s/p follow up MRI
#Alcohol Abuse
#Elevated LFTs
#hepatic steatosis
#HTN on admission
PLAN:
etiology of abdominal pain related to mild diverticulitis noted on prior CT, constipation with overflow less likely given no increased stool burden on xray vs. medication vs. other
No diarrhea since 1 episode yesterday, if she has diarrhea, check stool studies to r/o infectious etiology
CT as noted will need follow up to discuss colonoscopy with rectal thickening
ETOH abstinence
s/p MRI and oncology follow up with adrenal mass
Given improvement in abdominal pain and only 1 episode of loose stool, okay to proceed with discharge from a GI perspective. GI will sign off, please call with questions.
Subjective
Subjective
Date of Service: April 27, 2024
Patient seen in follow-up, reports minimal abdominal discomfort. No additional episodes of diarrhea, apart from the 1 episode yesterday morning.
Objective
Data Reviewed
Laboratory Data:
Laboratory Results
04/27/24 06:44
04/27/24 06:44
Laboratory Results
PT 13.0 Sec (11.4-14.6) 04/19/24 12:11
INR 0.98 04/19/24 12:11
APTT 27.0 Sec (23.4-35.0) 04/19/24 12:11
Phosphorus 3.8 mg/dl (2.5-4.5) 04/25/24 07:14
Magnesium 2.0 mg/dl (1.6-2.3) 04/27/24 06:44
Total Bilirubin 0.8 mg/dl (0.2-1.3) 04/25/24 07:14
AST 32 U/L (14-36) 04/25/24 07:14
ALT 19 U/L (0-35) 04/25/24 07:14
Alkaline Phosphatase 79 U/L (38-126) 04/25/24 07:14
Lipase 122 U/L (23-300) 04/19/24 06:02
Vital Signs and I&O:
Vital Signs
Temp Pulse Resp BP Pulse Ox
98 F 88 15 149/94 94
04/27/24 07:41 04/27/24 07:41 04/27/24 07:41 04/27/24 07:41 04/27/24 07:41
I&O
04/26/24 04/27/24 04/28/24
06:59 06:59 06:59
Intake Total 720 / 720 1620 / 1620
Output Total 900 / 900
Balance 720 / 720 720 / 720
Physical Exam
Physical Exam
HEENT: Anicteric and Moist mucous membranes
Cardiology: Normal Sinus Rhythm
Pulmonary: Clear
GI: Soft, Distended and Tender (lower abdomen )
Extremities: No Edema
Neuro: Non Focal
--- NOTE | 2024-04-27 14:17 | W.PN.UPDATE ---
Update Note
Progress Note Update
patient seen chart reviewed. discussed w dr figueroa and gordo. the patient looks sick. she said she feels awful. there is as of yet no clear etiology. workup for pheo so far is negative. dr figueroa will have renal take another look. when i saw her the patient
appeared weak and was lying in bed. she was flushed. she felt warm to touch but was afebrile. mri does show the adrenal adenoma but tests do not indicate that it is hormonally active (eg pheo). patient very fearful of being dc from hosp without
an answer for why she feel the way she feels. gi taking a look at her again today. while this is not a px that is typical for depression to me, that is not beyond the realm of possibility. will continue to follow.
--- NOTE | 2024-04-27 14:38 | VNURNOTE ---
Home Health Liaison met with patient at bedside to discuss [facility] nurse/therapy, visits, schedule and homebound status. Patient is agreeable and understands that visits at home will be 2-3 x per week to assess and teach medical management. [facility]
brochure provided with contact information. Patient is aware that [facility] will contact them for start of care in 1-2 days after discharge from . Patient was forgetful, unsure of who her most recent PCP was. This author reached out to spouse listed,
Glenny. Glenny unsure of PCP name but stated she has been to a PCP within the year. He will contact this author later today w/info.
[facility]N referra saved in [facility].
[2024-04-27] MEDS: BENTYL 20 MG PO ×3 (15:45→22:05)
[2024-04-27 15:57] VITALS: BP 158/102
[2024-04-27 16:00] VITALS: BP 158/102; PULSE 86; O2SAT 96
[2024-04-27] MEDS: LOVENOX 40 MG SC (17:58)
[2024-04-27 23:48] VITALS: BP 144/79
[2024-04-28] MEDS: NSS 1000 IV ×2 (00:17→16:10)
[2024-04-28 07:20] VITALS: BP 138/81
[2024-04-28] MEDS: NICODERM TRANSDERMAL 14 MG TRANSDERM (08:04)
[2024-04-28] MEDS: NORVASC 5 MG PO (08:05)
[2024-04-28] MEDS: MAGNESIUM OXIDE 500 MG PO ×2 (08:06→21:46)
[2024-04-28] MEDS: BENTYL 20 MG PO ×4 (08:06→21:46)
[2024-04-28] MEDS: WELLBUTRIN XL (24 hour extended release) 150 MG PO (08:06)
[2024-04-28] MEDS: CLARITIN 10 MG PO (08:06)
[2024-04-28] MEDS: FOLVITE 1 MG PO (08:06)
[2024-04-28] MEDS: PROTONIX 40 MG PO (08:06)
[2024-04-28] MEDS: VITAMIN B1 100 MG PO ×2 (08:06→21:46)
[2024-04-28] MEDS: LEXAPRO 10 MG PO (08:06)
[2024-04-28] MEDS: THERAGRAN 1 TABLET PO (08:06)
--- NOTE | 2024-04-28 09:00 | VNURNOTE ---
Follow up on PCP info. Yesterday this author spoke with pt, she mentioned Dr Contreras PCP but didn't remember last time she saw him. This author reached out to Dr Contreras's office. Spoke w/Soo. Patient has not seen Dr Contreras PCP since 2014.
Called spouse Glenny to determine if there is a different PCP, unable to leave message.
--- NOTE | 2024-04-28 09:23 | W.PN.HOSP.TC ---
Today's Communication/Plan
-
For colonoscopy tomorrow
Assessment / Plan
Assessment / Plan
58F ETOH abuse anxiety/depression HTN Tobacco abuse
Abdominal pain/nausea/loose stools
Mild diverticulitis on CT
-Reports a history of Crohn's disease in her family
-Denies blood at this time
-Abd CT -Mild sigmoid diverticulosis. No evidence of acute diverticulitis. Disproportionate degree of slightly asymmetric wall thickening. Although likely related to inflammatory changes of diverticulosis, it would be difficult to exclude an
underlying neoplastic process with certainty. Recommend correlation with colonoscopy.
-Abd XR neg for constipation. GI suspects IBS. Started on Bentyl 04/27
-Seen by GI again, stool studies negative for C. difficile/norovirus, stool culture pending
-For colonoscopy tomorrow
Ambulatory Dysfunction
- Uses walker/cane at home
- CT brain with mild diffuse cerebral and cerebellar atrophy, no acute findings
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
- Basic labs relatively unremarkable. TSH wnl. B12 wnl
- PT/OT - rec STR, pt agrees
Asymptomatic bacteriuria
-Monitor off antibiotics
Alcohol Abuse
- Drinking 3-4 days per week, 3 glasses of wine per day, last drink 04/16 night
- ETOH level (-) on admission
- Suspect ETOH contributing to global cerebellar dysfunction and problem above
- ETOH cessation advised
- MV/FA/Thiamine. Ativan per CIWA protocol
- Psych and CM consult appreciated
-Patient wishes to undergo outpatient alcohol rehab
20 lb weight loss unintentional
Right adrenal adenoma
-CT chest/abd/pelvis w contrast appreciated
-Mild emphysematous lung changes.
-Multiple small pulmonary nodules, as described, measuring up to 5.3 mm. Some of the nodules appear hyperdense and/or calcified, consistent with calcified granulomas. Recommend follow-up in one year.
-Superior right hilar margin mild adenopathy measuring 1.4 cm. Nonspecific.
-Fatty infiltration of liver.
-Heterogeneous complex right adrenal mass measuring up to 2.6 cm. Nonspecific. Possible myelolipoma. Other possible considerations may include changes related to previous infection and/or hemorrhage. Adrenal tumor, such as pheochromocytoma may also
be considered in the proper clinical setting.
-Workup for pheochromocytoma negative
-Abdominal MRI shows right adrenal adenoma
-Appreciate oncology input, no findings to suggest malignancy
-Recommend repeat chest CT in 6�months to verify stability of lung nodules
-Check HIV
Mild Elevated LFTs
- Likely alcoholic hepatitis.
- viral hepatitis panel neg
- monitor
Hypomagnesemia
monitor and replete as necessary
Macrocytosis
b12, folate wnl
iron studies appreciated Iron non-deficient
Anxiety/Depression
- Reports increasing depression, not taking her medications
- Resumed home lexapro
- Consult Psych appreciated buspirone discontinued in favor of increased wellbutrin
HTN
-likely exacerbated by ETOH withdrawal effect since improved
-cont amlodipine 5mg daily. losartan 100mg daily discontinued as per nephro d/t hyperkalemia (bp remains at goal without)
-prn Hydralazine
Cigarette nicotine dependenc
-continue nicotine patch
Severe protein calorie malnutrition
BMI 17.9
ensure supplement daily added to diet
DVT prophylaxis�Lovenox
Full code
Total time spent to see the patient on the floor, examine the patient, review data and lab results, discuss treatment plan with patient, nursing staff around 55 minutes.
Physical Exam
General: Thin, no acute distress
HEENT: Normocephalic, Atraumatic, EOMI, MMM
Respiratory: Clear to Auscultation bilaterally
Cardiac: Normal S1/S2, Regular Rate and Rhythm
GI: Soft, tender at lower quadrants, Nondistended, Normal Bowel Sounds
Extremities: No Clubbing, Cyanosis, or Edema
Neuro: Nonfocal/Grossly Intact
Psych: Calm, Cooperative
Derm: No Visible lesions
Anticipated Discharge: Within 24 hours
Subjective/Interval History
-
Date of Service: April 28, 2024
Patient complains of abdominal pain, lower, 7 out of 10 in intensity. She is also nauseous, and has watery stools. No fever, no vomiting.
Objective Data
-
Vital Signs:
Vital Signs
Temp Pulse Resp BP Pulse Ox
98.4 F 87 17 138/81 95
04/28/24 07:20 04/28/24 08:05 04/28/24 07:20 04/28/24 08:05 04/28/24 07:20
I&O
04/27/24 04/28/24 04/29/24
06:59 06:59 06:59
Intake Total 1620 / 1620 480 / 480
Output Total 900 / 900
Balance 720 / 720 480 / 480
--- NOTE | 2024-04-28 09:53 | VNURNOTE ---
Called spouse Glenny again. No answer, unable to leave message. Called other contact listed (son). No answer, left message. [facility] will not be able to start services unless patient current with a PCP. Unable to obtain info from patient, she doesn't
remember name of PCP.
--- NOTE | 2024-04-28 11:55 | W.PN.UPDATE ---
Update Note
Progress Note Update
patient seen chart reviewed. discussed w dr figueroa and dr rendon . patient is not feeling any better. workup re pheo has been negative. dr rendon is taking another look at her. she does have a strong fh of gi disease brothers have crohn's. she is
aware she will need a colonoscopy eventually although typically done as out patient. also texted w dr rendon re other possibilities eg celiac. have increased wellbutrin to [address] morales did early in her hosp stay but i reduced it back given
the ? of pheo now likely not an issue therefore have inc back to 300 mg. hard to know if depression came first and is underlying cause of her med issues or if it is the result of medical issues. i understand snf is in the future. encouraged
patient if she leaves before i see her tomorrow to followup with her pcp and gi at [facility]. will continue to follow if she remains here
--- NOTE | 2024-04-28 13:11 | PN.CDI ---
CDI
- -
CDI:
Physician Documentation Request
Admit Date: 04/24/24 09:48
Dear Doctor Do,
Patient admitted with ambulatory dysfunction.
C/A/P CT: 'Mild sigmoid diverticulosis. No evidence of acute diverticulitis.'
04/27 Hospitalist PN: 'Mild diverticulitis on CT'
04/27 GI PN: 'etiology of abdominal pain related to mild diverticulitis noted on prior CT, constipation with overflow less likely given no increased stool burden on xray vs. medication vs. other'
Based on the above, could you clarify in the progress notes, the appropriate diagnosis, if significant, that supports the above abnormalities and additional evaluation, monitoring and/or treatment rendered:
Diverticulosis
Diverticulitis
Other
Use of terms such as suspected, likely, concern for, or probable (associated with a specific diagnosis that is being evaluated, monitored, or treated as if it exists) are acceptable and can be coded in the inpatient setting, when documented at the
time of discharge.
Thank you,
Terri Hand RN, BSN
CDI Specialist
Available via [place] text
Please use your independent medical judgment in providing your response.
--- NOTE | 2024-04-28 13:42 | W.PN.GI.CBS2 ---
Addendum entered and electronically signed by Sheela Sosa, 04/28/24 15:39:
The patient was seen and examined by me independently in collaboration with the nurse practitioner.
Past medical history/social history/medications/allergies/family history reviewed.
Lab data and imaging data reviewed.
Overall, her symptoms appear to be acute on chronic. She is convinced she is currently developing new onset IBD, given her family history. However, reports she has had the same symptoms for years, even at times during prior colonoscopy. Her pain is
tolerable at this time, states its only mild. Does report feeling slightly nauseous whenever she eats. No consistent diarrhea. So far, infectious stool studies are negative.
I am suspicious for irritable bowel syndrome, less likely inflammatory bowel syndrome. However, I do not have access to any of her prior records. That said, after lengthy discussion, we will proceed with colonoscopy tomorrow to evaluate for evidence
of inflammatory bowel disease, also, will take biopsies to rule out microscopic colitis.
Recommendations:
-clear liquid diet
-colon prep, NPO PMN
-check celiac serologies, CRP, fecal calprotectin
Original Note:
Today's Communication / Plan
-
etiology of abdominal pain related to mild diverticular disease noted on prior CT, ? underlying crohns by hx, constipation with overflow less likely given no increased stool burden on xray vs. medication vs. other
Pt now admits to hx crohns . I am unable to find the MD who she sees for GI care ? Dr. Handhole
she can also not recall meds she is taking that stopped last week
will have Dr. Sosa confirm provider to try to obtain records
she will need OP follow up for colonoscopy after admission and aware of recommendation
ETOH abstinence
s/p MRI and oncology follow up with adrenal mass
Assessment / Plan
-
58-year-old female with history of alcohol abuse, tobacco abuse, hypertension, anxiety and depression admitted with ambulatory dysfunction and electrolyte abnormalities likely secondary to alcohol abuse resulting in vitamin and mineral all
deficiencies found to have abnormalities on imaging with plan for OP follow up but noted with abdominal pain and diarrhea prior to discharged
04/25 MR abdomen -- 3 cm right adrenal gland mass with heterogeneous signal and enhancement. The presence of intracytoplasmic lipid would favor an adrenal adenoma. Recommend correlation with outside imaging if available. Otherwise, suggest continued
imaging follow-up to confirm stability.
#diarrhea
# crohns diseae
#Abnormal CT Scan with wall thickening
#Rectal Bleeding
#Unintentional Weight loss
#CT with complex right adrenal mass s/p follow up MRI
#Alcohol Abuse
#Elevated LFTs
#hepatic steatosis
#HTN on admission
PLAN:
etiology of abdominal pain related to mild diverticular disease noted on prior CT, ? underlying crohns by hx, constipation with overflow less likely given no increased stool burden on xray vs. medication vs. other
Pt now admits to hx crohns . I am unable to find the MD who she sees for GI care ? Dr. Handhole
she can also not recall meds she is taking that stopped last week
will have Dr. Sosa confirm provider to try to obtain records
she will need OP follow up for colonoscopy after admission and aware of recommendation
ETOH abstinence
s/p MRI and oncology follow up with adrenal mass
Subjective
Subjective
Date of Service: April 28, 2024
still with some abdominal pain and some loose stool
Objective
Data Reviewed
Laboratory Data:
Laboratory Results
04/27/24 06:44
04/27/24 06:44
Laboratory Results
PT 13.0 Sec (11.4-14.6) 04/19/24 12:11
INR 0.98 04/19/24 12:11
APTT 27.0 Sec (23.4-35.0) 04/19/24 12:11
Phosphorus 3.8 mg/dl (2.5-4.5) 04/25/24 07:14
Magnesium 2.0 mg/dl (1.6-2.3) 04/27/24 06:44
Total Bilirubin 0.8 mg/dl (0.2-1.3) 04/25/24 07:14
AST 32 U/L (14-36) 04/25/24 07:14
ALT 19 U/L (0-35) 04/25/24 07:14
Alkaline Phosphatase 79 U/L (38-126) 04/25/24 07:14
Lipase 122 U/L (23-300) 04/19/24 06:02
Vital Signs and I&O:
Vital Signs
Temp Pulse Resp BP Pulse Ox
98.4 F 87 17 138/81 95
04/28/24 07:20 04/28/24 08:05 04/28/24 07:20 04/28/24 08:05 04/28/24 07:20
I&O
04/27/24 04/28/24 04/29/24
06:59 06:59 06:59
Intake Total 1620 / 1620 480 / 480
Output Total 900 / 900
Balance 720 / 720 480 / 480
Physical Exam
Physical Exam
HEENT: Anicteric and Moist mucous membranes
Cardiology: Normal Sinus Rhythm
Pulmonary: Clear
GI: Soft, Non Distended and Tender
Extremities: No Edema
Neuro: Non Focal
[2024-04-28 15:20] VITALS: BP 117/69
[2024-04-28] MEDS: NULYTELY SOLUTION 4 LITERS PO (18:05)
[2024-04-28] MEDS: LOVENOX 40 MG SC (18:05)
[2024-04-28 23:23] VITALS: BP 124/73
[2024-04-29] VITALS (8 sets, daily range): BP systolic 10–123; BP diastolic 62–77; PULSE 73–81; O2SAT 98–99
[2024-04-29] MEDS: MYLICON 80 MG PO (00:30)
[2024-04-29] MEDS: ZOFRAN 4 MG IV (00:30)
[2024-04-29 07:21] LABS: ALT (SGPT) 14 U/L (0-35); AST (SGOT) 24 U/L (14-36); Albumin 2.4 g/dl (3.5-5.0); Alkaline Phosphatase 79 U/L (38-126); Direct Bilirubin 0.3 mg/dl (0.0-0.4); Magnesium 1.7 mg/dl (1.6-2.3); Total Bilirubin 0.9 mg/dl (0.2-1.3); Total Protein 5.2 g/dl (6.3-8.2)
--- NOTE | 2024-04-29 08:59 | W.PN.HOSP.TC ---
Today's Communication/Plan
-
see bold
Assessment / Plan
Assessment / Plan
58F ETOH abuse anxiety/depression HTN Tobacco abuse
Abdominal pain/nausea/loose stools (Mild diverticulitis on CT ruled out)
-Reports a history of Crohn's disease in her family
-Denies blood at this time
-Abd CT -Mild sigmoid diverticulosis. No evidence of acute diverticulitis. Disproportionate degree of slightly asymmetric wall thickening. Although likely related to inflammatory changes of diverticulosis, it would be difficult to exclude an
underlying neoplastic process with certainty. Recommend correlation with colonoscopy.
-Abd XR neg for constipation. GI suspects IBS. Started on Bentyl 04/27
-Stool studies negative for C. difficile/norovirus, stool culture pending
-04/29 c-scope shows segmental colitis associated with diverticulosis, possible stricture
-GI recommends Gastrografin enema, which can be done outpatient versus Thursday if patient is still here
Ambulatory Dysfunction
- Uses walker/cane at home
- CT brain with mild diffuse cerebral and cerebellar atrophy, no acute findings
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
- Basic labs relatively unremarkable. TSH wnl. B12 wnl
- PT/OT - rec STR
- Patient lives with son who is refusing to take her home
Asymptomatic bacteriuria on 04/18 urine cx
-Monitor off antibiotics
Alcohol Abuse
- Drinking 3-4 days per week, 3 glasses of wine per day, last drink 04/16 night
- ETOH level (-) on admission
- Suspect ETOH contributing to global cerebellar dysfunction and problem above
- ETOH cessation advised
- MV/FA/Thiamine. Ativan per CIWA protocol
- Psych and CM consult appreciated
- Patient wishes to undergo outpatient alcohol rehab
20 lb weight loss unintentional
Right adrenal adenoma
-CT chest/abd/pelvis w contrast appreciated
-Mild emphysematous lung changes.
-Multiple small pulmonary nodules, as described, measuring up to 5.3 mm. Some of the nodules appear hyperdense and/or calcified, consistent with calcified granulomas. Recommend follow-up in one year.
-Superior right hilar margin mild adenopathy measuring 1.4 cm. Nonspecific.
-Fatty infiltration of liver.
-Heterogeneous complex right adrenal mass measuring up to 2.6 cm. Nonspecific. Possible myelolipoma. Other possible considerations may include changes related to previous infection and/or hemorrhage. Adrenal tumor, such as pheochromocytoma may also
be considered in the proper clinical setting.
-Workup for pheochromocytoma negative, HIV neg
-Abdominal MRI shows right adrenal adenoma
-Appreciate oncology input, no findings to suggest malignancy
-Recommend repeat chest CT in 6�months to verify stability of lung nodules
Mild Elevated LFTs
- Likely alcoholic hepatitis.
- viral hepatitis panel neg
- monitor
Hypomagnesemia
monitor and replete as necessary
Macrocytosis
b12, folate wnl
iron studies appreciated Iron non-deficient
Anxiety/Depression
- Reports increasing depression, not taking her medications
- Resumed home lexapro
- Consult Psych appreciated buspirone discontinued in favor of increased wellbutrin
HTN
-likely exacerbated by ETOH withdrawal effect since improved
-cont amlodipine 5mg daily. losartan 100mg daily discontinued as per nephro d/t hyperkalemia (bp remains at goal without)
-prn Hydralazine
Cigarette nicotine dependenc
-continue nicotine patch
Severe protein calorie malnutrition
BMI 17.9
ensure supplement daily added to diet
DVT prophylaxis�Lovenox
Full code
Total time spent to see the patient on the floor, examine the patient, review data and lab results, discuss treatment plan with patient, nursing staff around 52 minutes.
Physical Exam
General: Thin, no acute distress
HEENT: Normocephalic, Atraumatic, EOMI, MMM
Respiratory: Clear to Auscultation bilaterally
Cardiac: Normal S1/S2, Regular Rate and Rhythm
GI: Soft, tender at lower quadrants, Nondistended, Normal Bowel Sounds
Extremities: No Clubbing, Cyanosis, or Edema
Neuro: Nonfocal/Grossly Intact
Psych: Calm, Cooperative
Derm: No Visible lesions
Anticipated Discharge: Within 24 hours
Subjective/Interval History
-
Date of Service: April 29, 2024
Patient denies abdominal pain today. No nausea, no headache. She feels better. No fever, no vomiting.
Objective Data
-
Labs:
Laboratory Results
04/29/24
06:16
WBC Pending
Hgb Pending
Hct Pending
Plt Count Pending
Total Bilirubin 0.9
AST 24
ALT 14
Alkaline Phosphatase 79
Vital Signs:
Vital Signs
Temp Pulse Resp BP Pulse Ox
97.6 F 77 18 109/70 98
04/29/24 07:00 04/29/24 07:00 04/29/24 07:00 04/29/24 07:00 04/29/24 07:00
I&O
04/28/24 04/29/24 04/30/24
06:59 06:59 06:59
Intake Total 480 / 480 3660 / 3660
Balance 480 / 480 3660 / 3660
[2024-04-29 09:07] LABS: % Basophils 0.5 % (0-2); % Eosinophils 0.8 % (0-6); % Immature Granulocytes 0.5 % (0-0.5); % Lymphocytes 12.5 % (20.5-51.1); % Monocytes 4.3 % (1.7-9.3); % Neutrophils 81.4 % (42.2-75.2); Absolute Eosinophils 0.1 10^3/uL (0-0.7); Absolute Monocytes 0.3 10^3/uL (0.1-0.6); Absolute Neutrophils 6.2 10^3/uL (1.4-6.5); Hematocrit 30.7 % (37.0-47.0); Hemoglobin 10.6 g/dL (12.0-16.0); Mean Corp Hgb Conc. 34.5 g/dL (33.0-37.0); Mean Corpuscular Hgb 34.3 pg (27.0-31.0); Mean Corpuscular Volume 99.4 fL (81.0-99.0); Mean Platelet Volume 9.4 fL (7.4-10.4); Nucleated Red Blood Cells % 0 %; Platelet Count 235 10^3/uL (130-400); Red Blood Cell Count 3.09 10^6/uL (4.20-5.40); Red Cell Dist. Width 12.7 % (11.5-14.5); White Blood Cell Count 7.6 10^3/uL (4.8-10.8)
--- NOTE | 2024-04-29 09:39 | W.PN.UPDATE ---
Update Note
Progress Note Update
I d/w colorectal surgery they recommended 5ASA - I d/w pt r/a/b inc not limited to colitis, pancreatitis, kidney injury.
She is agreeable - started mesalamine today.
See cscope report for other recommendations.
[2024-04-29 10:17] LABS: Hemoglobin 11.2 g/dL (12.0-16.0)
[2024-04-29] MEDS: MAGNESIUM OXIDE 500 MG PO ×2 (11:15→20:26)
[2024-04-29] MEDS: WELLBUTRIN XL (24 hour extended release) 300 MG PO (11:15)
[2024-04-29] MEDS: NICODERM TRANSDERMAL 14 MG TRANSDERM (11:18)
[2024-04-29] MEDS: PROTONIX 40 MG PO (11:18)
[2024-04-29] MEDS: VITAMIN B1 100 MG PO ×2 (11:18→20:26)
[2024-04-29] MEDS: THERAGRAN 1 TABLET PO (11:18)
[2024-04-29] MEDS: CLARITIN 10 MG PO (11:18)
[2024-04-29] MEDS: LEXAPRO 10 MG PO (11:19)
[2024-04-29] MEDS: BENTYL 20 MG PO ×4 (11:19→20:26)
[2024-04-29] MEDS: FOLVITE 1 MG PO (11:19)
[2024-04-29] MEDS: NORVASC PO (11:21)
--- NOTE | 2024-04-29 11:30 | W.PN.UPDATE ---
Update Note
Progress Note Update
patient seen chart reviewed. spoke with nursing. reviewed colonoscopy report. interestingly the patient did not realize she had a colonoscopy this am. she was confused. even when i told her she had had one and the result she said 'i'm sitting in
the same place i was yesterday when you saw me...' she did believe me when i insisted that i had checked w nursing and reviewed the chart. i would attribute the confusion to post anaesthesia and hopefully it will resolve by later today. she was
relieved that finally something has been found that might account for her gi sx. she has been started on meselamine given findings in colon. i did increase wellbutrin yesterday. the question remains whether treating the gi issue will resolve her
psych sx....for now leave meds as they are . will ask psych seeing her tomorrow to drive home the message that she should followup w psychiatry ongoing at [facility] to assess and reassess whether she continues to need psych medication.
[2024-04-29 12:29] LABS: HIV Combo Negative (Negative)
--- NOTE | 2024-04-29 15:50 | CM ---
Reviewed chart, patient is medically cleared for discharge. Spoke with PT who had some concerns regarding her functional status. Per her RN however, she is ambulating without device, independently grooming and ambulating.
Met with patient who stated that she wants to return home with VN. She stated that her mother is always home, and her spouse can take some time off of work and her son will also be available. Patient was asked permission to talk to her son, Obdulio,
on speaker phone. Patient's son stated that patient has been evicted from her home, and her mother a few months ago. He stated that her etoh abuse has been excessive and she will just return back to the community and drink. Patient's son
stated that patient will have a room at his house and she can stay with him and her spouse upon her discharge from a facility/rehab.
Updated attending about confusion.
Patient does appear weak and therefore some facilities for substance/mental health may decline.
As this is the case, spoke with director. She advised that [facility] [place] should probably do another assessment.
Placed a call to Matteo at [facility] [place] who stated that he has some contacts at rehabs in medical facilities that may accept her. He stated that he will come in over the weekend to speak to patient again and will try to assist with transferring her to
rehab.
Attending updated on plan.
Plan: Case management will continue to follow and assist with discharge planning. Hopeful transfer to rehab this weekend.
[2024-04-29] MEDS: ASACOL, DELZICOL DR 800 MG PO ×2 (16:34→20:28)
[2024-04-29] MEDS: LOVENOX 40 MG SC (18:19)
--- NOTE | 2024-04-29 21:00 | PTCARENOTE ---
cared for pt until 2099. see assessment .report given to next RN
[2024-04-30 07:52] VITALS: BP 131/88
--- NOTE | 2024-04-30 09:18 | W.PN.HOSP.TC ---
Today's Communication/Plan
-
see bold
Assessment / Plan
Assessment / Plan
58F ETOH abuse anxiety/depression HTN Tobacco abuse
Segmental colitis associated with diverticulosis
Abdominal pain/nausea/loose stools (Mild diverticulitis on CT ruled out)
-Reports a history of Crohn's disease in her family
-Denies blood at this time
-Abd CT -Mild sigmoid diverticulosis. No evidence of acute diverticulitis. Disproportionate degree of slightly asymmetric wall thickening. Although likely related to inflammatory changes of diverticulosis, it would be difficult to exclude an
underlying neoplastic process with certainty. Recommend correlation with colonoscopy.
-Abd XR neg for constipation. GI suspects IBS. Started on Bentyl 04/27
-Stool studies negative for C. difficile/norovirus, stool culture pending
-04/29 c-scope shows segmental colitis associated with diverticulosis, possible stricture
-GI recommends Gastrografin enema, which can be done outpatient versus Thursday if patient is still here
-Started on mesalamine 04/29
Ambulatory Dysfunction
- Uses walker/cane at home
- CT brain with mild diffuse cerebral and cerebellar atrophy, no acute findings
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
- Basic labs relatively unremarkable. TSH wnl. B12 wnl
- PT/OT - rec STR
- Patient lives with son who is refusing to take her home
Acute toxic metabolic encephalopathy
Acute urinary tract infection
-Start Rocephin 1
Alcohol Abuse
- Drinking 3-4 days per week, 3 glasses of wine per day, last drink 04/16 night
- ETOH level (-) on admission
- Suspect ETOH contributing to global cerebellar dysfunction and problem above
- ETOH cessation advised
- MV/FA/Thiamine. Ativan per [facility] protocol
- Psych and CM consult appreciated
- Patient lives with son, who is adamant that she needs to go to inpatient alcohol rehab
- Patient is confused, she does not remember that her mother has passed
-Case management/[facility] is trying to set her up with inpatient alcohol rehab
20 lb weight loss unintentional
Right adrenal adenoma
-CT chest/abd/pelvis w contrast appreciated
-Mild emphysematous lung changes.
-Multiple small pulmonary nodules, as described, measuring up to 5.3 mm. Some of the nodules appear hyperdense and/or calcified, consistent with calcified granulomas. Recommend follow-up in one year.
-Superior right hilar margin mild adenopathy measuring 1.4 cm. Nonspecific.
-Fatty infiltration of liver.
-Heterogeneous complex right adrenal mass measuring up to 2.6 cm. Nonspecific. Possible myelolipoma. Other possible considerations may include changes related to previous infection and/or hemorrhage. Adrenal tumor, such as pheochromocytoma may also
be considered in the proper clinical setting.
-Workup for pheochromocytoma negative, HIV neg
-Abdominal MRI shows right adrenal adenoma
-Appreciate oncology input, no findings to suggest malignancy
-Recommend repeat chest CT in 6�months to verify stability of lung nodules
Mild Elevated LFTs
- Likely alcoholic hepatitis.
- viral hepatitis panel neg
- monitor
Hypomagnesemia
monitor and replete as necessary
Macrocytosis
b12, folate wnl
iron studies appreciated Iron non-deficient
Anxiety/Depression
- Reports increasing depression, not taking her medications
- Resumed home lexapro
- Consult Psych appreciated buspirone discontinued in favor of increased wellbutrin
HTN
-likely exacerbated by ETOH withdrawal effect since improved
-cont amlodipine 5mg daily. losartan 100mg daily discontinued as per nephro d/t hyperkalemia (bp remains at goal without)
-prn Hydralazine
Cigarette nicotine dependenc
-continue nicotine patch
Severe protein calorie malnutrition
BMI 17.9
ensure supplement daily added to diet
DVT prophylaxis�Lovenox
Full code
Total time spent to see the patient on the floor, examine the patient, review data and lab results, discuss treatment plan with patient, nursing staff around 50 minutes.
Physical Exam
General: Thin, no acute distress
HEENT: Normocephalic, Atraumatic, EOMI, MMM
Respiratory: Clear to Auscultation bilaterally
Cardiac: Normal S1/S2, Regular Rate and Rhythm
GI: Soft, tender at lower quadrants, Nondistended, Normal Bowel Sounds
Extremities: No Clubbing, Cyanosis, or Edema
Neuro: Mildly confused
Psych: Calm, Cooperative
Derm: No Visible lesions
Anticipated Discharge: 24 - 48 hours
Subjective/Interval History
-
Date of Service: April 29, 2024
Patient remains mildly confused. She does not remember that her mother passed. Appears anxious. Denies abdominal pain. Had diarrhea yesterday. No fever, no vomiting.
Objective Data
-
Labs:
Laboratory Results
04/29/24 04/29/24
06:16 09:59
WBC 7.6
Hgb 10.6 L D 11.2 L
Hct 30.7 L
Plt Count 235 D
Total Bilirubin 0.9
AST 24
ALT 14
Alkaline Phosphatase 79
Vital Signs:
Vital Signs
Temp Pulse Resp BP Pulse Ox
98.0 F 74 16 112/72 96
04/29/24 15:00 04/29/24 15:00 04/29/24 15:00 04/29/24 15:00 04/29/24 15:00
I&O
04/28/24 04/29/24 04/30/24
06:59 06:59 06:59
Intake Total 480 / 480 3660 / 3660
Balance 480 / 480 3660 / 3660
[2024-04-30] MEDS: CLARITIN 10 MG PO (09:27)
[2024-04-30] MEDS: WELLBUTRIN XL (24 hour extended release) 300 MG PO (09:27)
[2024-04-30] MEDS: LEXAPRO 10 MG PO (09:27)
[2024-04-30] MEDS: ASACOL, DELZICOL DR 800 MG PO ×3 (09:27→20:52)
[2024-04-30] MEDS: VITAMIN B1 100 MG PO ×2 (09:28→20:44)
[2024-04-30] MEDS: THERAGRAN 1 TABLET PO (09:28)
[2024-04-30] MEDS: MAGNESIUM OXIDE 500 MG PO (09:28)
[2024-04-30] MEDS: PROTONIX 40 MG PO (09:28)
[2024-04-30] MEDS: BENTYL 20 MG PO ×3 (09:28→17:20)
[2024-04-30] MEDS: NORVASC 5 MG PO (09:28)
[2024-04-30] MEDS: NICODERM TRANSDERMAL 14 MG TRANSDERM (09:29)
[2024-04-30] MEDS: FOLVITE 1 MG PO (09:29)
--- NOTE | 2024-04-30 09:46 | W.PN.GI.CBS2 ---
Addendum entered and electronically signed by Ambrocio Trujillo MD 04/30/24 17:43:
Stopping bentyl with ? diverticular stricture
Stopping mag oxide, miralax, suppositories as patient having diarrhea.
Original Note:
Today's Communication / Plan
-
5ASA, Gastrograffin water soluble enema Mon vs outpatient pending clinical status
Assessment / Plan
-
58-year-old female with history of alcohol abuse, tobacco abuse, hypertension, anxiety and depression admitted with ambulatory dysfunction and electrolyte abnormalities likely secondary to alcohol abuse resulting in vitamin and mineral all
deficiencies found to have abnormalities on imaging with plan for OP follow up but noted with abdominal pain and diarrhea prior to discharged
04/25 MR abdomen -- 3 cm right adrenal gland mass with heterogeneous signal and enhancement. The presence of intracytoplasmic lipid would favor an adrenal adenoma. Recommend correlation with outside imaging if available. Otherwise, suggest continued
imaging follow-up to confirm stability.
#diarrhea
#Abnormal CT Scan with wall thickening
#Rectal Bleeding
#Unintentional Weight loss
#CT with complex right adrenal mass s/p follow up MRI
#Alcohol Abuse
#Elevated LFTs
#hepatic steatosis
#HTN on admission
Incomplete colonoscopy yesterday 04/29 with what looked like SCAD and possible diverticular stricture unable to advance scope past approximately 20 cm (sigmoid).
Suspect cause of pain, weight loss, diarrhea.
There is a questionable report of 'Crohn's' but perhaps it was all the SCAD I saw - I am unable to find the MD who she sees for GI care ? Dr. Gupta.
RECOMMENDATIONS:
- Trial of 5ASA started 04/29
- Plan for Gastrograffin/water soluble contrast enema Thursday
- If symptoms improve we can also get study outpatient
- Follow up path from cscope
- Colorectal follow up outpatient or if still in hospital pending results of test on Thursday inpatient
- Continue low resiude diet
- ETOH abstinence
- MRI and oncology follow up with adrenal mass outpatient
Subjective
Subjective
Date of Service: April 30, 2024
Minimal abd soreness
Some mild diarrhea last pm
I reviewed psych's note patient did not remember colonoscopy
When I reviewed with her she said she had 'some memory' of it and did remember me reviewing consent and discussing with her after procedure
Objective
Data Reviewed
Laboratory Data:
Laboratory Results
04/29/24 09:59
04/27/24 06:44
Laboratory Results
PT 13.0 Sec (11.4-14.6) 04/19/24 12:11
INR 0.98 04/19/24 12:11
APTT 27.0 Sec (23.4-35.0) 04/19/24 12:11
Phosphorus 3.0 mg/dl (2.5-4.5) 04/29/24 06:16
Magnesium 1.7 mg/dl (1.6-2.3) 04/29/24 06:16
Total Bilirubin 0.9 mg/dl (0.2-1.3) 04/29/24 06:16
AST 24 U/L (14-36) 04/29/24 06:16
ALT 14 U/L (0-35) 04/29/24 06:16
Alkaline Phosphatase 79 U/L (38-126) 04/29/24 06:16
Lipase 122 U/L (23-300) 04/19/24 06:02
Vital Signs and I&O:
Vital Signs
Temp Pulse Resp BP Pulse Ox
98.1 F 73 19 131/88 96
04/30/24 07:52 04/30/24 07:52 04/30/24 07:52 04/30/24 07:52 04/30/24 07:52
I&O
04/29/24 04/30/24 05/01/24
06:59 06:59 06:59
Intake Total 3660 / 3660 960 / 960
Output Total 350 / 350
Balance 3659 610 / 610
Physical Exam
Physical Exam
GI: Non Distended and Non Tender
[2024-04-30] MEDS: STERILE WATER FOR INJECTION 10 ML IV (11:49)
[2024-04-30] MEDS: ROCEPHIN 1000 MG IV (11:51)
--- NOTE | 2024-04-30 12:32 | PTCARENOTE ---
Patient thought she was in [facility] and was looking for the washer and dryer. Patient was reoriented. Patient is intermittently confused. Patient crying, because she thought her mother last night. RN explained to her her mom
months ago. Bed alarm and med sitter maintained as patient makes multiple attempts to get OOB without calling for assistance. Patient's gait is weak and unsteady.
--- NOTE | 2024-04-30 14:00 | PTCARENOTE ---
Patient insisting she is home. Patient states, 'I am going out on the porch to have a cigarette.' Patient easily reorients, but then starts the cycle over again in an hour.
[2024-04-30 15:11] VITALS: BP 122/81
--- NOTE | 2024-04-30 15:30 | W.PN.UPDATE ---
Update Note
Progress Note Update
Pt seen & evaluated at bedside. Reports feeling hopeful regarding GI findings on colonoscopy and potentially having procedure on Thursday which may relieve some of her symptoms. She remains confused - although fully oriented, does not remember that
mother has and says she is worried about her mother because her son posted something concerning on social media. Reports that she tried calling him but he is not answering. Says she may reach out to an aunt. Patient says she wants to
leave the hospital and go check on her mother - however was redirectable. To note, patient lives with her son and he is refusing to take her back - CM in process of arranging inpatient EtOH rehab for patient at this time.
Reports feeling anxious and ruminating about mother - though to note, prior to initiating interview pt was laying calmly and comfortable in bed, did not appear anxious. Initially was smiling and pleasant, however when topic of home was discussed
became anxious and preoccupied with mom's health.\\
No medication changes indicated at this time.
[2024-04-30] MEDS: LOVENOX 40 MG SC (17:20)
[2024-04-30 23:13] VITALS: BP 125/71
[2024-05-01 00:37] LABS: Endomysial IgA Antibody Titer <1:10 (<1:10)
[2024-05-01 07:54] VITALS: BP 122/78
--- NOTE | 2024-05-01 08:53 | W.PN.HOSP.TC ---
Today's Communication/Plan
-
For Gastrografin enema tomorrow
Assessment / Plan
Assessment / Plan
58F ETOH abuse anxiety/depression HTN Tobacco abuse
Segmental colitis associated with diverticulosis
Abdominal pain/nausea/loose stools
-Reports a history of Crohn's disease in her family
-Denies blood at this time
-Abd CT -Mild sigmoid diverticulosis. No evidence of acute diverticulitis. Disproportionate degree of slightly asymmetric wall thickening. Although likely related to inflammatory changes of diverticulosis, it would be difficult to exclude an
underlying neoplastic process with certainty. Recommend correlation with colonoscopy.
-Abd XR neg for constipation. Started on Bentyl 04/27
-Stool studies negative for C. difficile/norovirus, stool culture neg
-04/29 c-scope shows segmental colitis associated with diverticulosis, possible stricture
-GI recommends Gastrografin enema, plan for tomorrow
-Started on mesalamine 04/29
Ambulatory Dysfunction
- Uses walker/cane at home
- CT brain with mild diffuse cerebral and cerebellar atrophy, no acute findings
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
- Basic labs relatively unremarkable. TSH wnl. B12 wnl
- PT/OT - rec STR
- Patient lives with son who is refusing to take her home
Acute toxic metabolic encephalopathy
Acute urinary tract infection
- Rocephin 2
Alcohol Abuse
- Drinking 3-4 days per week, 3 glasses of wine per day, last drink 04/16 night
- ETOH level (-) on admission
- Suspect ETOH contributing to global cerebellar dysfunction and problem above
- ETOH cessation advised
- MV/FA/Thiamine. Ativan per [facility] protocol
- Psych and CM consult appreciated
- Patient lives with son, who is adamant that she needs to go to inpatient alcohol rehab
- Patient is confused, she does not remember that her mother has passed
-Case management/[facility] is trying to set her up with inpatient alcohol rehab
20 lb weight loss unintentional
Right adrenal adenoma
-CT chest/abd/pelvis w contrast appreciated
-Mild emphysematous lung changes.
-Multiple small pulmonary nodules, as described, measuring up to 5.3 mm. Some of the nodules appear hyperdense and/or calcified, consistent with calcified granulomas. Recommend follow-up in one year.
-Superior right hilar margin mild adenopathy measuring 1.4 cm. Nonspecific.
-Fatty infiltration of liver.
-Heterogeneous complex right adrenal mass measuring up to 2.6 cm. Nonspecific. Possible myelolipoma. Other possible considerations may include changes related to previous infection and/or hemorrhage. Adrenal tumor, such as pheochromocytoma may also
be considered in the proper clinical setting.
-Workup for pheochromocytoma negative, HIV neg
-Abdominal MRI shows right adrenal adenoma
-Appreciate oncology input, no findings to suggest malignancy
-Recommend repeat chest CT in 6�months to verify stability of lung nodules
Mild Elevated LFTs
- Likely alcoholic hepatitis.
- viral hepatitis panel neg
- monitor
Hypomagnesemia
monitor and replete as necessary
Macrocytosis
b12, folate wnl
iron studies appreciated Iron non-deficient
Anxiety/Depression
- Reports increasing depression, not taking her medications
- Resumed home lexapro
- Consult Psych appreciated buspirone discontinued in favor of increased wellbutrin
HTN
-likely exacerbated by ETOH withdrawal effect since improved
-cont amlodipine 5mg daily. losartan 100mg daily discontinued as per nephro d/t hyperkalemia (bp remains at goal without)
-prn Hydralazine
Cigarette nicotine dependenc
-continue nicotine patch
Severe protein calorie malnutrition
BMI 17.9
ensure supplement daily added to diet
DVT prophylaxis�Lovenox
Full code
Total time spent to see the patient on the floor, examine the patient, review data and lab results, discuss treatment plan with patient, nursing staff around 40 minutes.
Physical Exam
General: Thin, no acute distress
HEENT: Normocephalic, Atraumatic, EOMI, MMM
Respiratory: Clear to Auscultation bilaterally
Cardiac: Normal S1/S2, Regular Rate and Rhythm
GI: Soft, tender at lower quadrants, Nondistended, Normal Bowel Sounds
Extremities: No Clubbing, Cyanosis, or Edema
Neuro: Mildly confused
Psych: Calm, Cooperative
Derm: No Visible lesions
Anticipated Discharge: 24 - 48 hours
Subjective/Interval History
-
Date of Service: May 01, 2024
Patient denies abdominal pain. She reports nausea and lightheadedness. No vomiting, no diarrhea. No fever.
Objective Data
-
Vital Signs:
Vital Signs
Temp Pulse Resp BP Pulse Ox
97.6 F 76 19 122/78 96
05/01/24 07:54 05/01/24 07:54 05/01/24 07:54 05/01/24 07:54 05/01/24 07:54
I&O
04/30/24 05/01/24 05/02/24
06:59 06:59 06:59
Intake Total 960 / 960 1520 / 1520
Output Total 350 / 350
Balance 610 / 610 1520 / 1520
[2024-05-01] MEDS: ASACOL, DELZICOL DR 800 MG PO ×3 (09:08→21:37)
[2024-05-01] MEDS: NICODERM TRANSDERMAL 14 MG TRANSDERM (09:08)
[2024-05-01] MEDS: NORVASC 5 MG PO (09:09)
[2024-05-01] MEDS: WELLBUTRIN XL (24 hour extended release) 300 MG PO (09:09)
[2024-05-01] MEDS: THERAGRAN 1 TABLET PO (09:10)
[2024-05-01] MEDS: CLARITIN 10 MG PO (09:10)
[2024-05-01] MEDS: PROTONIX 40 MG PO (09:10)
[2024-05-01] MEDS: FOLVITE 1 MG PO (09:10)
[2024-05-01] MEDS: VITAMIN B1 100 MG PO ×2 (09:10→20:15)
[2024-05-01] MEDS: LEXAPRO 10 MG PO (09:11)
--- NOTE | 2024-05-01 10:31 | W.PN.GI.CBS2 ---
Addendum entered and electronically signed by Ambrocio Trujillo MD 05/01/24 11:44:
I d/w radiologist in detail about prep
Original Note:
Today's Communication / Plan
-
gastrograffin/water soluble enema tmwr
Assessment / Plan
-
58-year-old female with history of alcohol abuse, tobacco abuse, hypertension, anxiety and depression admitted with ambulatory dysfunction and electrolyte abnormalities likely secondary to alcohol abuse resulting in vitamin and mineral all
deficiencies found to have abnormalities on imaging with plan for OP follow up but noted with abdominal pain and diarrhea prior to discharged
04/25 MR abdomen -- 3 cm right adrenal gland mass with heterogeneous signal and enhancement. The presence of intracytoplasmic lipid would favor an adrenal adenoma. Recommend correlation with outside imaging if available. Otherwise, suggest continued
imaging follow-up to confirm stability.
#diarrhea
#Abnormal CT Scan with wall thickening
#Rectal Bleeding
#Unintentional Weight loss
#CT with complex right adrenal mass s/p follow up MRI
#Alcohol Abuse
#Elevated LFTs
#hepatic steatosis
#HTN on admission
Incomplete colonoscopy 04/29 with what looked like SCAD and possible diverticular stricture unable to advance scope past approximately 20 cm (sigmoid).
Suspect cause of pain, weight loss, diarrhea.
There is a questionable report of 'Crohn's' but perhaps it was all the SCAD I saw - I am unable to find the MD who she sees for GI care ? Dr. Gupta.
RECOMMENDATIONS:
- Trial of 5ASA started 04/29
- Plan for Gastrograffin/water soluble contrast enema Thursday, NPO after midnight
- Follow up path from cscope
- Colorectal follow up outpatient or if still in hospital pending results of test on Thursday inpatient
- Continue low residue diet
- ETOH abstinence
- MRI and oncology follow up with adrenal mass outpatient
Subjective
Subjective
Date of Service: May 01, 2024
some gas pain
tolerating breakfast
no diarrhea this am
Objective
Data Reviewed
Laboratory Data:
Laboratory Results
04/29/24 09:59
04/27/24 06:44
Laboratory Results
PT 13.0 Sec (11.4-14.6) 04/19/24 12:11
INR 0.98 04/19/24 12:11
APTT 27.0 Sec (23.4-35.0) 04/19/24 12:11
Phosphorus 3.0 mg/dl (2.5-4.5) 04/29/24 06:16
Magnesium 1.7 mg/dl (1.6-2.3) 04/29/24 06:16
Total Bilirubin 0.9 mg/dl (0.2-1.3) 04/29/24 06:16
AST 24 U/L (14-36) 04/29/24 06:16
ALT 14 U/L (0-35) 04/29/24 06:16
Alkaline Phosphatase 79 U/L (38-126) 04/29/24 06:16
Lipase 122 U/L (23-300) 04/19/24 06:02
Vital Signs and I&O:
Vital Signs
Temp Pulse Resp BP Pulse Ox
97.6 F 76 19 122/78 96
05/01/24 07:54 05/01/24 07:54 05/01/24 07:54 05/01/24 07:54 05/01/24 07:54
I&O
04/30/24 05/01/24 05/02/24
06:59 06:59 06:59
Intake Total 960 / 960 1520 / 1520
Output Total 350 / 350
Balance 610 / 610 1520 / 1520
Physical Exam
Physical Exam
HEENT: Anicteric
Cardiology: Normal Sinus Rhythm
Pulmonary: Clear
GI: Non Distended and Non Tender
[2024-05-01] MEDS: STERILE WATER FOR INJECTION 10 ML IV (10:46)
[2024-05-01] MEDS: ROCEPHIN 1000 MG IV (10:46)
[2024-05-01 12:01] VITALS: BP 112/77; BP 117/82; PULSE 69; O2SAT 94
--- NOTE | 2024-05-01 12:12 | CM ---
Addendum entered by RIAN Carreon 05/01/24 14:09:
Received return call back from Matteo from [facility] who stated that no facility he has approached will accept patient due to her deconditioned level of functioning. Will explore SNF availability.
Original Note:
Matteo from [facility] called and asked that all clinical be faxed to [facility] [phone]. Faxed all clinicals, Matteo came in to meet with patient to discuss inpatient D&A rehab. She is still agreeable. Matteo stated that he will also send
information to [facility]. Matteo relayed that as patient is very deconditioned, most facilities will probably dictate that she goes to a SNF prior to coming to them. Matteo was made aware that patient is medically stable, forgetful but has been
completing ADLs independently. PT indicating skilled however.
Plan: Case management will continue to follow and assist with discharge planning. SNF vrs straight to inpatient rehab.
--- NOTE | 2024-05-01 13:59 | W.PN.UPDATE ---
Update Note
Progress Note Update
RN sent me msg with prep
pt needs to be on clears diet updated
Recommended to follow directions for mag citrate and dulcolax po/supp tonight
meds sent up from rads
[2024-05-01 15:53] VITALS: BP 147/84
[2024-05-01] MEDS: LOVENOX 40 MG SC (17:06)
[2024-05-01] MEDS: CITROMA 150 ML PO (17:06)
--- NOTE | 2024-05-01 17:59 | PTCARENOTE ---
Prep started for procedure tomorrow. Pt given 8oz cup of water at 1500, 1600, 1700, and 1800. Pt tolerating well. Pt currently on clear liquids diet. Pt needs lots of reinforcement as pt is confuse.
[2024-05-01] MEDS: DULCOLAX 20 MG PO (19:16)
[2024-05-01 23:00] VITALS: BP 143/88
[2024-05-01 23:06] LABS: IgA 441 mg/dl (70-400)
[2024-05-02 01:03] LABS: Calprotectin, Fecal 509 ug/g (<=49)
[2024-05-02 06:20] LABS: Hematocrit 32.4 % (37.0-47.0); Hemoglobin 11.6 g/dL (12.0-16.0); Mean Corp Hgb Conc. 35.8 g/dL (33.0-37.0); Mean Corpuscular Hgb 36.1 pg (27.0-31.0); Mean Corpuscular Volume 100.9 fL (81.0-99.0); Mean Platelet Volume 9.4 fL (7.4-10.4); Platelet Count 232 10^3/uL (130-400); Red Blood Cell Count 3.21 10^6/uL (4.20-5.40); Red Cell Dist. Width 12.5 % (11.5-14.5)
[2024-05-02 06:32] LABS: Blood Urea Nitrogen 10 mg/dl (7-17); Calcium 8.6 mg/dl (8.4-10.2); Carbon Dioxide 30 mmol/L (22-30); Chloride 100 mmol/L (98-107); Estimated Creatinine Clearance 94 ml/min; Glucose 80 mg/dl (70-99); Phosphorus 4.4 mg/dl (2.5-4.5); Potassium 3.3 mmol/L (3.5-5.1); Sodium 138 mmol/L (135-145); eGFR > 60.00
[2024-05-02] MEDS: ASACOL, DELZICOL DR 800 MG PO ×3 (07:32→21:22)
[2024-05-02] MEDS: WELLBUTRIN XL (24 hour extended release) 300 MG PO (07:33)
[2024-05-02] MEDS: PROTONIX 40 MG PO (07:33)
[2024-05-02] MEDS: VITAMIN B1 100 MG PO ×2 (07:33→20:43)
[2024-05-02] MEDS: NICODERM TRANSDERMAL 14 MG TRANSDERM (07:33)
[2024-05-02] MEDS: THERAGRAN 1 TABLET PO (07:34)
[2024-05-02] MEDS: CLARITIN 10 MG PO (07:34)
[2024-05-02] MEDS: NORVASC 5 MG PO (07:34)
[2024-05-02] MEDS: LEXAPRO 10 MG PO (07:35)
[2024-05-02] MEDS: FOLVITE 1 MG PO (07:35)
[2024-05-02 07:38] VITALS: BP 141/98
[2024-05-02] MEDS: DULCOLAX 10 MG RECTAL (07:38)
--- NOTE | 2024-05-02 08:01 | W.PN.HOSP.TC ---
Today's Communication/Plan
-
gastrogaffin enema as per GI
PT/OT
dispo planning
Assessment / Plan
Assessment / Plan
Physical Exam
General: Thin, no acute distress
HEENT: Normocephalic, Atraumatic, EOMI, MMM
Respiratory: Clear to Auscultation bilaterally
Cardiac: Normal S1/S2, Regular Rate and Rhythm
GI: Soft, tender at lower quadrants, Nondistended, Normal Bowel Sounds
Extremities: No Clubbing, Cyanosis, or Edema
Neuro: Awake alert conversant coherent
Psych: Calm, Cooperative
Derm: No Visible lesions
58F ETOH abuse anxiety/depression HTN Tobacco abuse
Segmental colitis associated with diverticulosis
Abdominal pain/nausea/loose stools
-Reports a history of Crohn's disease in her family
-Denies blood at this time
-Abd CT -Mild sigmoid diverticulosis. No evidence of acute diverticulitis. Disproportionate degree of slightly asymmetric wall thickening. Although likely related to inflammatory changes of diverticulosis, it would be difficult to exclude an
underlying neoplastic process with certainty. Recommend correlation with colonoscopy.
-Abd XR neg for constipation. Started on Bentyl 04/27
-Stool studies negative for C. difficile/norovirus, stool culture neg
-04/29 c-scope shows segmental colitis associated with diverticulosis, possible stricture
-GI recommends Gastrografin enema planned for today
-Started on mesalamine 04/29
Ambulatory Dysfunction
- Uses walker/cane at home
- CT brain with mild diffuse cerebral and cerebellar atrophy, no acute findings
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
- Basic labs relatively unremarkable. TSH wnl. B12 wnl
- PT/OT - rec STR
- Patient lives with son who is refusing to take her home
Acute toxic metabolic encephalopathy
Acute urinary tract infection
- Rocephin 3
Alcohol Abuse
- Drinking 3-4 days per week, 3 glasses of wine per day, last drink 04/16 night
- ETOH level (-) on admission
- Suspect ETOH contributing to global cerebellar dysfunction and problem above
- ETOH cessation advised
- MV/FA/Thiamine. Ativan per [facility] protocol
- Psych and CM consult appreciated
- Patient lives with son, who is adamant that she needs to go to inpatient alcohol rehab
- Patient is confused, she does not remember that her mother has passed
-Case management/bcares is trying to set her up with inpatient alcohol rehab
-Patient however has updated PT/OT recommendations for SNF rehab will need to complete before inpt ETOH rehab (son aware and in agreement)
20 lb weight loss unintentional
Right adrenal adenoma
-CT chest/abd/pelvis w contrast appreciated
-Mild emphysematous lung changes.
-Multiple small pulmonary nodules, as described, measuring up to 5.3 mm. Some of the nodules appear hyperdense and/or calcified, consistent with calcified granulomas. Recommend follow-up in one year.
-Superior right hilar margin mild adenopathy measuring 1.4 cm. Nonspecific.
-Fatty infiltration of liver.
-Heterogeneous complex right adrenal mass measuring up to 2.6 cm. Nonspecific. Possible myelolipoma. Other possible considerations may include changes related to previous infection and/or hemorrhage. Adrenal tumor, such as pheochromocytoma may also
be considered in the proper clinical setting.
-Workup for pheochromocytoma negative, HIV neg
-Abdominal MRI shows right adrenal adenoma
-Appreciate oncology input, no findings to suggest malignancy
-Recommend repeat chest CT in 6�months to verify stability of lung nodules
Mild Elevated LFTs
- Likely alcoholic hepatitis.
- viral hepatitis panel neg
- monitor
Hypomagnesemia
monitor and replete as necessary
Macrocytosis
b12, folate wnl
iron studies appreciated Iron non-deficient
Anxiety/Depression
- Reports increasing depression, not taking her medications
- Resumed home lexapro
- Consult Psych appreciated buspirone discontinued in favor of increased wellbutrin
HTN
-likely exacerbated by ETOH withdrawal effect since improved
-cont amlodipine 5mg daily. losartan 100mg daily discontinued as per nephro d/t hyperkalemia (bp remains at goal without)
-prn Hydralazine
Cigarette nicotine dependenc
-continue nicotine patch
Severe protein calorie malnutrition
BMI 17.9
ensure supplement daily added to diet
DVT prophylaxis�Lovenox
Full code
discussed with patient and patient's son Obdulio
Total time spent to see the patient on the floor, examine the patient, review data and lab results, discuss treatment plan with patient, nursing staff around 40 minutes.
Anticipated Discharge: 24 - 48 hours
Subjective/Interval History
-
Date of Service: May 02, 2024
No acute distress. Overall reports feeling well. Eager to resume eating.
Objective Data
-
Labs:
Laboratory Results
05/02/24
05:50
WBC 7.0
Hgb 11.6 L
Hct 32.4 L
Plt Count 232
Sodium 138
Potassium 3.3 L
Chloride 100
Carbon Dioxide 30
BUN 10
Creatinine 0.6
Glucose 80
Calcium 8.6
Vital Signs:
Vital Signs
Temp Pulse Resp BP Pulse Ox
97.6 F 76 14 141/98 96
05/02/24 07:38 05/02/24 07:38 05/02/24 07:38 05/02/24 07:38 05/02/24 07:38
I&O
05/01/24 05/02/24 05/03/24
06:59 06:59 06:59
Intake Total 1520 / 1520 2520 / 2520
Balance 1520 / 1520 2520 / 2520
[2024-05-02] MEDS: DRISDOL (VITAMIN D2) 50000 UNITS PO (09:39)
[2024-05-02 09:48] LABS: % Basophils 0.4 % (0-2); % Eosinophils 0.6 % (0-6); % Immature Granulocytes 0.4 % (0-0.5); % Lymphocytes 19.5 % (20.5-51.1); % Monocytes 8.4 % (1.7-9.3); % Neutrophils 70.7 % (42.2-75.2); Absolute Lymphocytes 1.4 10^3/uL (1.2-3.4); Absolute Monocytes 0.6 10^3/uL (0.1-0.6); Nucleated Red Blood Cells % 0 %
--- NOTE | 2024-05-02 10:54 | W.PN.GI.CBS2 ---
Today's Communication / Plan
-
gastrograffin enema
Assessment / Plan
-
58-year-old female with history of alcohol abuse, tobacco abuse, hypertension, anxiety and depression admitted with ambulatory dysfunction and electrolyte abnormalities likely secondary to alcohol abuse resulting in vitamin and mineral all
deficiencies found to have abnormalities on imaging with plan for OP follow up but noted with abdominal pain and diarrhea prior to discharged
04/25 MR abdomen -- 3 cm right adrenal gland mass with heterogeneous signal and enhancement. The presence of intracytoplasmic lipid would favor an adrenal adenoma. Recommend correlation with outside imaging if available. Otherwise, suggest continued
imaging follow-up to confirm stability.
#diarrhea
#Abnormal CT Scan with wall thickening
#Rectal Bleeding
#Unintentional Weight loss
#CT with complex right adrenal mass s/p follow up MRI
#Alcohol Abuse
#Elevated LFTs
#hepatic steatosis
#HTN on admission
Incomplete colonoscopy 04/29 with what looked like SCAD and possible diverticular stricture unable to advance scope past approximately 20 cm (sigmoid).
Suspect cause of pain, weight loss, diarrhea.
There is a questionable report of 'Crohn's' but perhaps it was all the SCAD I saw - I am unable to find the MD who she sees for GI care ? Dr. Gupta.
RECOMMENDATIONS:
- Trial of 5ASA started 04/29
- Plan for Gastrograffin/water soluble contrast enema today, extensive time reviewing prep with RN yesterday
- Follow up path from cscope
- Colorectal eval pending Gastrograffin enema inpt vs outpatient
- ETOH abstinence
- MRI and oncology follow up with adrenal mass outpatient
Subjective
Subjective
Date of Service: May 02, 2024
Pain improving
Objective
Data Reviewed
Laboratory Data:
Laboratory Results
05/02/24 05:50
05/02/24 05:50
Laboratory Results
PT 13.0 Sec (11.4-14.6) 04/19/24 12:11
INR 0.98 04/19/24 12:11
APTT 27.0 Sec (23.4-35.0) 04/19/24 12:11
Phosphorus 4.4 mg/dl (2.5-4.5) 05/02/24 05:50
Magnesium 2.0 mg/dl (1.6-2.3) 05/02/24 05:50
Total Bilirubin 0.9 mg/dl (0.2-1.3) 04/29/24 06:16
AST 24 U/L (14-36) 04/29/24 06:16
ALT 14 U/L (0-35) 04/29/24 06:16
Alkaline Phosphatase 79 U/L (38-126) 04/29/24 06:16
Lipase 122 U/L (23-300) 04/19/24 06:02
Vital Signs and I&O:
Vital Signs
Temp Pulse Resp BP Pulse Ox
97.6 F 76 14 141/98 96
05/02/24 07:38 05/02/24 07:38 05/02/24 07:38 05/02/24 07:38 05/02/24 07:38
I&O
05/01/24 05/02/24 05/03/24
06:59 06:59 06:59
Intake Total 1520 / 1520 2520 / 2520
Balance 1520 / 1520 2520 / 2520
Physical Exam
Physical Exam
GI: Non Distended and Non Tender
[2024-05-02] MEDS: ROCEPHIN 1000 MG IV (10:57)
[2024-05-02] MEDS: STERILE WATER FOR INJECTION 10 ML IV (10:58)
[2024-05-02] MEDS: KCL 270 MEQ IV (12:05)
--- NOTE | 2024-05-02 14:17 | W.PN.UPDATE ---
Update Note
Progress Note Update
I reviewed Gastrografin enema report. It appeared normal. Okay for regular diet. Needs outpatient GI follow-up and outpatient colorectal follow-up. Continue mesalamine upon discharge. Discussed with hospitalist. GI will sign off. Please call
with any questions. Thank you.
[2024-05-02 15:00] VITALS: BP 133/91
[2024-05-02 15:44] VITALS: BP 121/83; PULSE 87; O2SAT 93
[2024-05-02] MEDS: LOVENOX 40 MG SC (17:03)
[2024-05-02 23:47] VITALS: BP 121/77
[2024-05-03 06:50] LABS: Blood Urea Nitrogen 9 mg/dl (7-17); Calcium 8.4 mg/dl (8.4-10.2); Carbon Dioxide 27 mmol/L (22-30); Chloride 101 mmol/L (98-107); Estimated Creatinine Clearance 80 ml/min; Glucose 74 mg/dl (70-99); Hemoglobin 10.3 g/dL (12.0-16.0); Magnesium 1.8 mg/dl (1.6-2.3); Mean Corp Hgb Conc. 35.5 g/dL (33.0-37.0); Mean Corpuscular Volume 98.6 fL (81.0-99.0); Mean Platelet Volume 9.3 fL (7.4-10.4); Phosphorus 3.8 mg/dl (2.5-4.5); Platelet Count 228 10^3/uL (130-400); Potassium 3.1 mmol/L (3.5-5.1); Red Blood Cell Count 2.94 10^6/uL (4.20-5.40); Red Cell Dist. Width 12.8 % (11.5-14.5); Sodium 136 mmol/L (135-145); White Blood Cell Count 5.9 10^3/uL (4.8-10.8); eGFR > 60.00
[2024-05-03 07:17] VITALS: BP 129/82
--- NOTE | 2024-05-03 07:30 | W.PN.HOSP.TC ---
Today's Communication/Plan
-
replete potassium
thiamine increased to IV 200 mg TID
discharge planning SNF rehab
Assessment / Plan
Assessment / Plan
Physical Exam
General: Thin, no acute distress
HEENT: Normocephalic, Atraumatic, EOMI, MMM
Respiratory: Clear to Auscultation bilaterally
Cardiac: Normal S1/S2, Regular Rate and Rhythm
GI: Soft, tender at lower quadrants, Nondistended, Normal Bowel Sounds
Extremities: No Clubbing, Cyanosis, or Edema
Neuro: Awake alert conversant coherent
Psych: Mildly agitated confused perseverating that she needs to see her mother, has to be reminded her mother months ago.
Derm: No Visible lesions
58F ETOH abuse anxiety/depression HTN Tobacco abuse
Segmental colitis associated with diverticulosis
Abdominal pain/nausea/loose stools
-Reports a history of Crohn's disease in her family
-Denies blood at this time
-Abd CT -Mild sigmoid diverticulosis. No evidence of acute diverticulitis. Disproportionate degree of slightly asymmetric wall thickening. Although likely related to inflammatory changes of diverticulosis, it would be difficult to exclude an
underlying neoplastic process with certainty. Recommend correlation with colonoscopy.
-Abd XR neg for constipation. Started on Bentyl 04/27
-Stool studies negative for C. difficile/norovirus, stool culture neg
-04/29 c-scope shows segmental colitis associated with diverticulosis, possible stricture
-GI recommends Gastrografin enema planned for today
-Started on mesalamine 04/29
Ambulatory Dysfunction
- Uses walker/cane at home
- CT brain with mild diffuse cerebral and cerebellar atrophy, no acute findings
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
- Basic labs relatively unremarkable. TSH wnl. B12 wnl
- PT/OT - rec STR
- Patient lives with son who is refusing to take her home
Acute toxic metabolic encephalopathy
Acute urinary tract infection
- Rocephin 3
Alcohol Abuse
- Drinking 3-4 days per week, 3 glasses of wine per day, last drink 04/16 night
- ETOH level (-) on admission
- Suspect ETOH contributing to global cerebellar dysfunction and problem above
- ETOH cessation advised
- MV/FA/Thiamine. Ativan per [facility] protocol, thiamine increased empirically to 200 mg IV TID given ongoing confusion, memory issues
- Psych and CM consult appreciated
- Patient lives with son, who is adamant that she needs to go to inpatient alcohol rehab
- Patient confused needs to be reminded that her mother had months ago.
-Case management/bcares is trying to set her up with inpatient alcohol rehab
-Patient however has updated PT/OT recommendations for SNF rehab will need to complete before inpt ETOH rehab (son aware and in agreement)
20 lb weight loss unintentional
Right adrenal adenoma
-CT chest/abd/pelvis w contrast appreciated
-Mild emphysematous lung changes.
-Multiple small pulmonary nodules, as described, measuring up to 5.3 mm. Some of the nodules appear hyperdense and/or calcified, consistent with calcified granulomas. Recommend follow-up in one year.
-Superior right hilar margin mild adenopathy measuring 1.4 cm. Nonspecific.
-Fatty infiltration of liver.
-Heterogeneous complex right adrenal mass measuring up to 2.6 cm. Nonspecific. Possible myelolipoma. Other possible considerations may include changes related to previous infection and/or hemorrhage. Adrenal tumor, such as pheochromocytoma may also
be considered in the proper clinical setting.
-Workup for pheochromocytoma negative, HIV neg
-Abdominal MRI shows right adrenal adenoma
-Appreciate oncology input, no findings to suggest malignancy
-Recommend repeat chest CT in 6�months to verify stability of lung nodules
Mild Elevated LFTs
- Likely alcoholic hepatitis.
- viral hepatitis panel neg
- monitor
Hypomagnesemia
Hypokalemia
monitor and replete as necessary
Macrocytosis
b12, folate wnl
iron studies appreciated Iron non-deficient
Anxiety/Depression
- Reports increasing depression, not taking her medications
- Resumed home lexapro
- Consult Psych appreciated buspirone discontinued in favor of increased wellbutrin
HTN
-likely exacerbated by ETOH withdrawal effect since improved
-cont amlodipine 5mg daily. losartan 100mg daily discontinued as per nephro d/t hyperkalemia (bp remains at goal without)
-prn Hydralazine
Cigarette nicotine dependenc
-continue nicotine patch
Severe protein calorie malnutrition
BMI 17.9
ensure supplement daily added to diet
DVT prophylaxis�Lovenox
Full code
discussed with patient and patient's son Obdulio
Total time spent to see the patient on the floor, examine the patient, review data and lab results, discuss treatment plan with patient, nursing staff around 50 minutes.
Anticipated Discharge: 24 - 48 hours
Subjective/Interval History
-
Date of Service: May 03, 2024
Patient confused. mildly agitated. perseverating that she needs to go home and check on her mother. Has to be reminded that her mother months ago. Son assisted in redirection with phone conversation with patient
Objective Data
-
Labs:
Laboratory Results
05/03/24
05:52
WBC 5.9
Hgb 10.3 L
Hct 29.0 L
Plt Count 228
Sodium 136
Potassium 3.1 L
Chloride 101
Carbon Dioxide 27
BUN 9
Creatinine 0.7
Glucose 74
Calcium 8.4
Vital Signs:
Vital Signs
Temp Pulse Resp BP Pulse Ox
98.3 F 71 16 129/82 96
05/03/24 07:17 05/03/24 07:17 05/03/24 07:17 05/03/24 07:17 05/03/24 07:17
I&O
05/02/24 05/03/24 05/04/24
06:59 06:59 06:59
Intake Total 2520 / 2520 1450 / 1450
Balance 2520 / 2520 1450 / 1450
[2024-05-03] MEDS: WELLBUTRIN XL (24 hour extended release) 300 MG PO (07:41)
[2024-05-03] MEDS: CLARITIN 10 MG PO (07:41)
[2024-05-03] MEDS: LEXAPRO 10 MG PO (07:41)
[2024-05-03] MEDS: ASACOL, DELZICOL DR 800 MG PO ×3 (07:42→20:51)
[2024-05-03] MEDS: NORVASC 5 MG PO (07:42)
[2024-05-03] MEDS: NICODERM TRANSDERMAL 14 MG TRANSDERM (07:43)
[2024-05-03] MEDS: VITAMIN B1 100 MG PO (07:44)
[2024-05-03] MEDS: FOLVITE 1 MG PO (07:44)
[2024-05-03] MEDS: THERAGRAN 1 TABLET PO (07:44)
[2024-05-03] MEDS: PROTONIX 40 MG PO (07:44)
--- NOTE | 2024-05-03 10:16 | W.PN.UPDATE ---
Update Note
Progress Note Update
Patient seen at bedside with RN, chart reviewed. Ms. Blancas tells me she is physically feeling much better. Unfortunately, she remains confused although oriented x3. She knows where she is, she knew to look at the [employer] for the date, she
knew the current President without any prompting. She believes her mother has just and she is unable to contact family members. This confusion appears to have begun after anesthesia but has not yet resolved. She otherwise, is doing well,
denies feeling depressed, hopeless, helpless. She is calm and cooperative. Denies SI. Does not appear to respond to any internal stimuli. Denies any AH/VH. She wants to go home but understands she will likely need physical rehab prior to returning
home. She may also benefit from ETOH rehab after physically cleared. She does not think she needs this but also did not object. Hoping her mental status returns to baseline, may need to consider further work up. She does not demonstrate any other
psychiatric symptoms at this time.
Impression/Recommendations: Alcohol use disorder; Major depressive disorder - Continue with Lexapro and Wellbutrin which is now at 300mg daily. ETOH treatment once physically able, either IP or OP would be appropriate. She does plan to abstain from
ETOH.
[2024-05-03] MEDS: ROCEPHIN 1000 MG IV (10:37)
[2024-05-03] MEDS: STERILE WATER FOR INJECTION 10 ML IV (10:38)
[2024-05-03] MEDS: MYLICON 80 MG PO (11:04)
[2024-05-03] MEDS: KCL 40 MEQ PO (11:15)
[2024-05-03] MEDS: KCL 270 MEQ IV (11:16)
--- NOTE | 2024-05-03 11:49 | PN.CDI ---
CDI
- -
CDI:
Physician Documentation Request
Admit Date: 04/24/24 09:48
Dear Doctor Chloé,
Patient admitted for colitis.
05/02 Potassium level: 3.3
05/02 Potassium chloride 40 meq IV administered
Based on the above, could you clarify in the progress notes, the appropriate diagnosis, if significant, that supports the above abnormalities and additional evaluation, monitoring and/or treatment rendered:
Hypokalemia
Abnormal lab value insignificant
Other
Use of terms such as suspected, likely, concern for, or probable (associated with a specific diagnosis that is being evaluated, monitored, or treated as if it exists) are acceptable and can be coded in the inpatient setting, when documented at the
time of discharge.
Thank you,
Terri Hand RN, BSN
CDI Specialist
Available via [place] text
Please use your independent medical judgment in providing your response.
[2024-05-03] MEDS: THIAMINE INJECTION 200 MG IV ×2 (15:18→20:51)
[2024-05-03 15:30] VITALS: BP 130/84
--- NOTE | 2024-05-03 16:49 | CM ---
Addendum entered by RIAN Carreon 05/04/24 16:25:
Spoke with Psychiatry who stated that patient does not have the capacity to decide to return home. Will call her son for SNF suggestions.
Original Note:
Reviewed chart, patient denied wanting to go to therapy. She stated that she wants to go home and feels that she is strong enough to navigate her environment. She is concerned about her son and understands now that her mother has and
feels she needs to go home, check on her family and then go to rehab.
Reviewed PT/OT.
Will discuss with with therapy further to get insight. Will clarify with psych if she has the capacity to make this choice.
Plan: Case management will continue to follow and assist with discharge planning. SNF vrs home.
[2024-05-03] MEDS: LOVENOX 40 MG SC (17:14)
[2024-05-03 23:08] VITALS: BP 117/69
--- NOTE | 2024-05-04 03:04 | DOWNTIME ---
There was a [employer] Downtime on 05/04/2024 from 0100 to 05/04/2024 at 0300. Downtime documentation of patient's care, including medication administrations, has been reconciled in the electronic record per guidelines. Refer to the
patient's paper chart under the miscellaneous tab to see printed paper medication records and downtime forms.
[2024-05-04 07:20] VITALS: BP 133/87
[2024-05-04 07:27] LABS: Hematocrit 29.5 % (37.0-47.0); Hemoglobin 10.5 g/dL (12.0-16.0); Mean Corp Hgb Conc. 35.6 g/dL (33.0-37.0); Mean Corpuscular Hgb 36.6 pg (27.0-31.0); Mean Corpuscular Volume 102.8 fL (81.0-99.0); Mean Platelet Volume 9.5 fL (7.4-10.4); Platelet Count 207 10^3/uL (130-400); Red Blood Cell Count 2.87 10^6/uL (4.20-5.40); Red Cell Dist. Width 12.6 % (11.5-14.5); White Blood Cell Count 3.8 10^3/uL (4.8-10.8)
[2024-05-04 07:58] LABS: Blood Urea Nitrogen 8 mg/dl (7-17); Calcium 8.4 mg/dl (8.4-10.2); Carbon Dioxide 24 mmol/L (22-30); Chloride 105 mmol/L (98-107); Estimated Creatinine Clearance 80 ml/min; Glucose 81 mg/dl (70-99); Magnesium 1.5 mg/dl (1.6-2.3); Potassium 3.8 mmol/L (3.5-5.1); Sodium 140 mmol/L (135-145); eGFR > 60.00
[2024-05-04] MEDS: WELLBUTRIN XL (24 hour extended release) 300 MG PO (07:59)
[2024-05-04] MEDS: THIAMINE INJECTION 200 MG IV ×3 (07:59→22:51)
[2024-05-04] MEDS: ASACOL, DELZICOL DR 800 MG PO ×3 (07:59→22:51)
[2024-05-04] MEDS: CLARITIN 10 MG PO (07:59)
[2024-05-04] MEDS: NORVASC 5 MG PO (08:01)
[2024-05-04] MEDS: PROTONIX 40 MG PO (08:01)
[2024-05-04] MEDS: THERAGRAN 1 TABLET PO (08:01)
[2024-05-04] MEDS: FOLVITE 1 MG PO (08:01)
[2024-05-04] MEDS: LEXAPRO 10 MG PO (08:02)
[2024-05-04] MEDS: NICODERM TRANSDERMAL 14 MG TRANSDERM (08:02)
--- NOTE | 2024-05-04 08:07 | W.PN.HOSP.TC ---
Today's Communication/Plan
-
Discharge planning SNF rehab
thiamine supplementation
diet as tolerated
Replete Mg
Assessment / Plan
Assessment / Plan
Physical Exam
General: Thin, no acute distress
HEENT: Normocephalic, Atraumatic, EOMI, MMM
Respiratory: Clear to Auscultation bilaterally
Cardiac: Normal S1/S2, Regular Rate and Rhythm
GI: Soft, tender at lower quadrants, Nondistended, Normal Bowel Sounds
Extremities: No Clubbing, Cyanosis, or Edema
Neuro: Awake alert conversant coherent
Psych: Calm
Derm: No Visible lesions
58F ETOH abuse anxiety/depression HTN Tobacco abuse
Segmental colitis associated with diverticulosis
Abdominal pain/nausea/loose stools
-Reports a history of Crohn's disease in her family
-Denies blood at this time
-Abd CT -Mild sigmoid diverticulosis. No evidence of acute diverticulitis. Disproportionate degree of slightly asymmetric wall thickening. Although likely related to inflammatory changes of diverticulosis, it would be difficult to exclude an
underlying neoplastic process with certainty. Recommend correlation with colonoscopy.
-Abd XR neg for constipation. Started on Bentyl 04/27
-Stool studies negative for C. difficile/norovirus, stool culture neg
-04/29 c-scope shows segmental colitis associated with diverticulosis, possible stricture
-GI recommends Gastrografin enema planned for today
-Started on mesalamine 04/29
Ambulatory Dysfunction
- Uses walker/cane at home
- CT brain with mild diffuse cerebral and cerebellar atrophy, no acute findings
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
- Basic labs relatively unremarkable. TSH wnl. B12 wnl
- PT/OT - rec STR
- Patient lives with son who is refusing to take her home
Acute toxic metabolic encephalopathy
Acute urinary tract infection
- Rocephin 3
Alcohol Abuse
- Drinking 3-4 days per week, 3 glasses of wine per day, last drink 04/16 night
- ETOH level (-) on admission
- Suspect ETOH contributing to global cerebellar dysfunction and problem above
- ETOH cessation advised
- MV/FA/Thiamine. Ativan per [facility] protocol, thiamine increased empirically to 200 mg IV TID given ongoing confusion, memory issues
- Psych and CM consult appreciated
- Patient lives with son, who is adamant that she needs to go to inpatient alcohol rehab
- Patient confused needs to be reminded that her mother had months ago.
-Case management/bcares is trying to set her up with inpatient alcohol rehab
-Patient however has updated PT/OT recommendations for SNF rehab will need to complete before inpt ETOH rehab (son aware and in agreement)
20 lb weight loss unintentional
Right adrenal adenoma
-CT chest/abd/pelvis w contrast appreciated
-Mild emphysematous lung changes.
-Multiple small pulmonary nodules, as described, measuring up to 5.3 mm. Some of the nodules appear hyperdense and/or calcified, consistent with calcified granulomas. Recommend follow-up in one year.
-Superior right hilar margin mild adenopathy measuring 1.4 cm. Nonspecific.
-Fatty infiltration of liver.
-Heterogeneous complex right adrenal mass measuring up to 2.6 cm. Nonspecific. Possible myelolipoma. Other possible considerations may include changes related to previous infection and/or hemorrhage. Adrenal tumor, such as pheochromocytoma may also
be considered in the proper clinical setting.
-Workup for pheochromocytoma negative, HIV neg
-Abdominal MRI shows right adrenal adenoma
-Appreciate oncology input, no findings to suggest malignancy
-Recommend repeat chest CT in 6�months to verify stability of lung nodules
Mild Elevated LFTs
- Likely alcoholic hepatitis.
- viral hepatitis panel neg
- monitor
Hypomagnesemia
Hypokalemia
monitor and replete as necessary
Macrocytosis
b12, folate wnl
iron studies appreciated Iron non-deficient
Anxiety/Depression
- Reports increasing depression, not taking her medications
- Resumed home lexapro
- Consult Psych appreciated buspirone discontinued in favor of increased Wellbutrin, wellbutrin later decreased d/t concerns contributing to patient's deconditioning.
HTN
-likely exacerbated by ETOH withdrawal effect since improved
-cont amlodipine 5mg daily. losartan 100mg daily discontinued as per nephro d/t hyperkalemia (bp remains at goal without)
-prn Hydralazine
Cigarette nicotine dependence
-continue nicotine patch
Severe protein calorie malnutrition
BMI 17.9
ensure supplement daily added to diet
DVT prophylaxis�Lovenox
Full code
discussed with patient and patient's son Obdulio
Total time spent to see the patient on the floor, examine the patient, review data and lab results, discuss treatment plan with patient, nursing staff around 50 minutes.
Anticipated Discharge: 24 - 48 hours
Subjective/Interval History
-
Date of Service: May 04, 2024
No acute distress. Appears comfortable at this time. Needed to be reminded that her mother months ago December. This time patient was more accepting of reminder and agreeable to pursuing SNF rehab at this time.
Objective Data
-
Labs:
Laboratory Results
05/04/24
06:34
WBC 3.8 L
Hgb 10.5 L
Hct 29.5 L
Plt Count 207
Sodium 140
Potassium 3.8
Chloride 105
Carbon Dioxide 24
BUN 8
Creatinine 0.7
Glucose 81
Calcium 8.4
Vital Signs:
Vital Signs
Temp Pulse Resp BP Pulse Ox
98.2 F 76 16 133/87 95
05/04/24 07:20 05/04/24 08:01 05/04/24 07:20 05/04/24 08:01 05/04/24 07:20
I&O
05/03/24 05/04/24 05/05/24
06:59 06:59 06:59
Intake Total 1450 / 1450 1400 / 1400
Balance 1450 / 1450 1400 / 1400
--- NOTE | 2024-05-04 11:11 | W.PN.UPDATE ---
Update Note
Progress Note Update
patient seen chart reviewed. this patient is well known to me. she remains confused. at one point told me it was february...then october.....she also told me it was 2013. she did know olivier was president. in my opinion she has definitely deteriorated
mental status [place] since admit. dr morales noted initially that there was some cognitive impairment which we presumed could be due to etoh use. there were subtleties in my conversations w her subsequently but i noted the confusion worsened after
colonoscopy. i thought it was secondary to anaesthesia but it has persisted. she does have a uti...but not clear that this is the cause. she really is not appropriate at this point for rehab. i think she needs snf for gait balance issues etc. she
is refusing same. i do not find competent at this point to safely care for herself. will cut back the wellbutrin. not clear if that is the reason for her decline but seemed better to me prior to its increase. will continue to follow.
[2024-05-04] MEDS: STERILE WATER FOR INJECTION 10 ML IV (11:20)
[2024-05-04] MEDS: ROCEPHIN 1000 MG IV (11:20)
[2024-05-04] MEDS: MAGNESIUM SULFATE 100 IV (13:03)
[2024-05-04 15:30] VITALS: BP 145/85
[2024-05-04 15:46] LABS: tTG IgA Antibody 13.4 EU/ml (0-19); tTG IgG Antibody 13.2 EU/ml (0-19)
[2024-05-04 16:07] VITALS: BP 122/81; BP 141/98; PULSE 86; O2SAT 95
[2024-05-04] MEDS: LOVENOX 40 MG SC (17:56)
[2024-05-04] MEDS: ATIVAN 0.5 MG IV (18:00)
[2024-05-04] MEDS: NSS (PRESERVATIVE FREE) 0.25 ML IV (18:00)
[2024-05-04 23:55] VITALS: BP 120/69
[2024-05-05 07:00] VITALS: BP 137/86
[2024-05-05 07:24] LABS: Hematocrit 29.9 % (37.0-47.0); Hemoglobin 10.4 g/dL (12.0-16.0); Mean Corp Hgb Conc. 34.8 g/dL (33.0-37.0); Mean Corpuscular Hgb 34.9 pg (27.0-31.0); Mean Corpuscular Volume 100.3 fL (81.0-99.0); Mean Platelet Volume 9.3 fL (7.4-10.4); Platelet Count 231 10^3/uL (130-400); Red Blood Cell Count 2.98 10^6/uL (4.20-5.40); Red Cell Dist. Width 12.9 % (11.5-14.5); White Blood Cell Count 4.2 10^3/uL (4.8-10.8)
--- NOTE | 2024-05-05 07:31 | W.PN.HOSP.TC ---
Today's Communication/Plan
-
Medically stable for discharge pending SNF placement
Assessment / Plan
Assessment / Plan
Physical Exam
General: Thin, no acute distress
HEENT: Normocephalic, Atraumatic, EOMI, MMM
Respiratory: Clear to Auscultation bilaterally
Cardiac: Normal S1/S2, Regular Rate and Rhythm
GI: Soft, tender at lower quadrants, Nondistended, Normal Bowel Sounds
Extremities: No Clubbing, Cyanosis, or Edema
Neuro: Awake alert conversant coherent
Psych: Calm
Derm: No Visible lesions
58F ETOH abuse anxiety/depression HTN Tobacco abuse
Segmental colitis associated with diverticulosis
Abdominal pain/nausea/loose stools
-Reports a history of Crohn's disease in her family
-Denies blood at this time
-Abd CT -Mild sigmoid diverticulosis. No evidence of acute diverticulitis. Disproportionate degree of slightly asymmetric wall thickening. Although likely related to inflammatory changes of diverticulosis, it would be difficult to exclude an
underlying neoplastic process with certainty. Recommend correlation with colonoscopy.
-Abd XR neg for constipation. Started on Bentyl 04/27
-Stool studies negative for C. difficile/norovirus, stool culture neg
-04/29 c-scope shows segmental colitis associated with diverticulosis, possible stricture
-GI recommends Gastrografin enema planned for today
-Started on mesalamine 04/29
Ambulatory Dysfunction
- Uses walker/cane at home
- CT brain with mild diffuse cerebral and cerebellar atrophy, no acute findings
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
- Basic labs relatively unremarkable. TSH wnl. B12 wnl
- PT/OT - rec STR
- Patient lives with son who is refusing to take her home
Acute toxic metabolic encephalopathy
Acute urinary tract infection
- Rocephin 3
Alcohol Abuse
- Drinking 3-4 days per week, 3 glasses of wine per day, last drink 04/16 night
- ETOH level (-) on admission
- Suspect ETOH contributing to global cerebellar dysfunction and problem above
- ETOH cessation advised
- MV/FA/Thiamine. Ativan per [facility] protocol, thiamine briefly increased empirically to 200 mg IV TID given ongoing confusion, memory issues since transitioned back to oral with improvement
- Psych and CM consult appreciated
- Patient lives with son, who is adamant that she needs to go to inpatient alcohol rehab
- Patient confused needs to be reminded that her mother had months ago.
-Case management/bcares is trying to set her up with inpatient alcohol rehab
-Patient however has updated PT/OT recommendations for SNF rehab will need to complete before inpt ETOH rehab (son aware and in agreement)
20 lb weight loss unintentional
Right adrenal adenoma
-CT chest/abd/pelvis w contrast appreciated
-Mild emphysematous lung changes.
-Multiple small pulmonary nodules, as described, measuring up to 5.3 mm. Some of the nodules appear hyperdense and/or calcified, consistent with calcified granulomas. Recommend follow-up in one year.
-Superior right hilar margin mild adenopathy measuring 1.4 cm. Nonspecific.
-Fatty infiltration of liver.
-Heterogeneous complex right adrenal mass measuring up to 2.6 cm. Nonspecific. Possible myelolipoma. Other possible considerations may include changes related to previous infection and/or hemorrhage. Adrenal tumor, such as pheochromocytoma may also
be considered in the proper clinical setting.
-Workup for pheochromocytoma negative, HIV neg
-Abdominal MRI shows right adrenal adenoma
-Appreciate oncology input, no findings to suggest malignancy
-Recommend repeat chest CT in 6�months to verify stability of lung nodules
Mild Elevated LFTs
- Likely alcoholic hepatitis.
- viral hepatitis panel neg
- monitor
Hypomagnesemia
Hypokalemia
monitor and replete as necessary
Macrocytosis
b12, folate wnl
iron studies appreciated Iron non-deficient
Anxiety/Depression
- Reports increasing depression, not taking her medications
- Resumed home lexapro
- Consult Psych appreciated buspirone discontinued in favor of increased Wellbutrin, wellbutrin later decreased d/t concerns contributing to patient's deconditioning.
HTN
-likely exacerbated by ETOH withdrawal effect since improved
-cont amlodipine 5mg daily. losartan 100mg daily discontinued as per nephro d/t hyperkalemia (bp remains at goal without)
-prn Hydralazine
Cigarette nicotine dependence
-continue nicotine patch
Severe protein calorie malnutrition
BMI 17.9
ensure supplement daily added to diet
DVT prophylaxis�Lovenox
Full code
Medically stable for discharge pending SNF placement
Total time spent to see the patient on the floor, examine the patient, review data and lab results, discuss treatment plan with patient, nursing staff around 40 minutes.
Anticipated Discharge: Within 24 hours
Subjective/Interval History
-
Date of Service: May 05, 2024
Cheerful. Reports good appetite.
Objective Data
-
Labs:
Laboratory Results
05/05/24
06:52
WBC 4.2 L
Hgb 10.4 L
Hct 29.9 L
Plt Count 231
Sodium Pending
Potassium Pending
Chloride Pending
Carbon Dioxide Pending
BUN Pending
Creatinine Pending
Glucose Pending
Calcium Pending
Vital Signs:
Vital Signs
Temp Pulse Resp BP Pulse Ox
98 F 76 17 120/69 96
05/04/24 23:55 05/04/24 23:55 05/04/24 23:55 05/04/24 23:55 05/04/24 23:55
I&O
05/04/24 05/05/24 05/06/24
06:59 06:59 06:59
Intake Total 1400 / 1400 1710 / 1710
Balance 1400 / 1400 1710 / 1710
[2024-05-05 07:50] LABS: Blood Urea Nitrogen 9 mg/dl (7-17); Calcium 8.4 mg/dl (8.4-10.2); Carbon Dioxide 24 mmol/L (22-30); Chloride 105 mmol/L (98-107); Estimated Creatinine Clearance 80 ml/min; Glucose 79 mg/dl (70-99); Magnesium 1.9 mg/dl (1.6-2.3); Phosphorus 4.3 mg/dl (2.5-4.5); Potassium 3.8 mmol/L (3.5-5.1); Sodium 140 mmol/L (135-145); eGFR > 60.00
[2024-05-05] MEDS: NICODERM TRANSDERMAL 14 MG TRANSDERM (08:09)
[2024-05-05] MEDS: ASACOL, DELZICOL DR 800 MG PO ×3 (08:10→23:00)
[2024-05-05] MEDS: CLARITIN 10 MG PO (08:10)
[2024-05-05] MEDS: PROTONIX 40 MG PO (08:10)
[2024-05-05] MEDS: WELLBUTRIN XL (24 hour extended release) 150 MG PO (08:11)
[2024-05-05] MEDS: FOLVITE 1 MG PO (08:11)
[2024-05-05] MEDS: THERAGRAN 1 TABLET PO (08:11)
[2024-05-05] MEDS: LEXAPRO 10 MG PO (08:11)
[2024-05-05] MEDS: THIAMINE INJECTION 200 MG IV (08:12)
[2024-05-05] MEDS: NORVASC 5 MG PO (08:12)
--- NOTE | 2024-05-05 10:45 | CM ---
Addendum entered by Sheela Barbosa, [facility] 05/05/24 16:24:
Received a return call from Jasmin at [facility] who stated that all clinical needs to be faxed to, .
Faxed clinical. Will await determination.
Addendum entered by Sheela Barbosa, [facility] 05/05/24 12:21:
Placed a call to patient's insurance, [facility] and spoke with a community health representative named, Dalia, who took demographic information as well as NPIs and information regarding the facility. She took ICD-10 codes. Once processed she issued reference #
[id number]
Facility address, [address] [place] [id number].
Dalia stated that the information will be provided to a reviewer who will call CM for clinical. Provided CM contact information.
Will await call so that clinical can be provided.
Juan Pablo admissions from [place] confirmed that bed is available tomorrow as obtaining authorization may take some time.
Will complete Medical necessity and transfer sheet for hopeful transition to SNF tomorrow.
Addendum entered by Sheela Barbosa, [facility] 05/05/24 11:50:
Received call from Juan Pablo (gianni Ceja) in admissions at [facility] who stated that he can accept patient tomorrow pending auth.
NPIs# [id number]
MD-Attending Karri Colon [phone]
# For report [phone] # for fax [phone]
Will call patient's insurance to obtain hopeful authorization.
Original Note:
Faxed referral to the following facilities: [facility], [place], [facility] [place], [place], [facility], [facility], [facility], [facility], [facility], [facility], [facility], and
[facility].
Will f/u on determinations.
Plan: Case management will continue to follow and assist with discharge planning. SNF when bed is found and hopeful auth is obtained.
[2024-05-05 11:05] VITALS: BP 127/81; PULSE 89; O2SAT 97
--- NOTE | 2024-05-05 11:25 | W.PN.UPDATE ---
Update Note
Progress Note Update
patient seen chart reviewed. discussed w nursing dr box and with cm. the patient seemed more alert and less confused today. she referred to mom as which is the first time in some days that she has not spoken of her as alive. she told me
about the home she had been left by mom and that her son currently lives there. she would be giving up her rented place and moving in with him which will save her money. she will also now have a yard which pleases her. she is willing to go to snf
prior to dc to home to get stronger physically. we revisited the necessity of sobriety if she is to get and remain well. she thanked me for 'the talk' i did note she had received ativan. would use it minimally as it will not help mental status and
have decreased frequency and changed to po. yesterday cut back on dose of wellbutrin. not clear if that is why she seems better, will follow. mg.
[2024-05-05 15:00] VITALS: BP 139/82
[2024-05-05] MEDS: LOVENOX 40 MG SC (18:02)
[2024-05-05] MEDS: VITAMIN B1 100 MG PO (19:34)
[2024-05-05] MEDS: ATIVAN 0.5 MG PO (23:00)
[2024-05-05 23:25] VITALS: BP 108/67
[2024-05-06 07:00] VITALS: BP 138/90
--- NOTE | 2024-05-06 07:32 | W.PN.HOSP.TC ---
Today's Communication/Plan
-
Medically stable pending SNF placement
Assessment / Plan
Assessment / Plan
Physical Exam
General: Thin, no acute distress
HEENT: Normocephalic, Atraumatic, EOMI, MMM
Respiratory: Clear to Auscultation bilaterally
Cardiac: Normal S1/S2, Regular Rate and Rhythm
GI: Soft, tender at lower quadrants, Nondistended, Normal Bowel Sounds
Extremities: No Clubbing, Cyanosis, or Edema
Neuro: Awake alert conversant coherent
Psych: Calm
Derm: No Visible lesions
58F ETOH abuse anxiety/depression HTN Tobacco abuse
Segmental colitis associated with diverticulosis
Abdominal pain/nausea/loose stools
-Reports a history of Crohn's disease in her family
-Denies blood at this time
-Abd CT -Mild sigmoid diverticulosis. No evidence of acute diverticulitis. Disproportionate degree of slightly asymmetric wall thickening. Although likely related to inflammatory changes of diverticulosis, it would be difficult to exclude an
underlying neoplastic process with certainty. Recommend correlation with colonoscopy.
-Abd XR neg for constipation. Started on Bentyl 04/27
-Stool studies negative for C. difficile/norovirus, stool culture neg
-04/29 c-scope shows segmental colitis associated with diverticulosis, possible stricture
-GI recommends Gastrografin enema planned for today
-Started on mesalamine 04/29
Ambulatory Dysfunction
- Uses walker/cane at home
- CT brain with mild diffuse cerebral and cerebellar atrophy, no acute findings
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
- Basic labs relatively unremarkable. TSH wnl. B12 wnl
- PT/OT - rec STR
- Patient lives with son who is refusing to take her home
Acute toxic metabolic encephalopathy
Acute urinary tract infection
- Rocephin 3
Alcohol Abuse
- Drinking 3-4 days per week, 3 glasses of wine per day, last drink 04/16 night
- ETOH level (-) on admission
- Suspect ETOH contributing to global cerebellar dysfunction and problem above
- ETOH cessation advised
- MV/FA/Thiamine. Ativan per [facility] protocol, thiamine briefly increased empirically to 200 mg IV TID given ongoing confusion, memory issues since transitioned back to oral with improvement
- Psych and CM consult appreciated
- Patient lives with son, who is adamant that she needs to go to inpatient alcohol rehab
- Patient confused needs to be reminded that her mother had months ago.
-Case management/bcares is trying to set her up with inpatient alcohol rehab
-Patient however has updated PT/OT recommendations for SNF rehab will need to complete before inpt ETOH rehab (son aware and in agreement)
20 lb weight loss unintentional
Right adrenal adenoma
-CT chest/abd/pelvis w contrast appreciated
-Mild emphysematous lung changes.
-Multiple small pulmonary nodules, as described, measuring up to 5.3 mm. Some of the nodules appear hyperdense and/or calcified, consistent with calcified granulomas. Recommend follow-up in one year.
-Superior right hilar margin mild adenopathy measuring 1.4 cm. Nonspecific.
-Fatty infiltration of liver.
-Heterogeneous complex right adrenal mass measuring up to 2.6 cm. Nonspecific. Possible myelolipoma. Other possible considerations may include changes related to previous infection and/or hemorrhage. Adrenal tumor, such as pheochromocytoma may also
be considered in the proper clinical setting.
-Workup for pheochromocytoma negative, HIV neg
-Abdominal MRI shows right adrenal adenoma
-Appreciate oncology input, no findings to suggest malignancy
-Recommend repeat chest CT in 6�months to verify stability of lung nodules
Mild Elevated LFTs
- Likely alcoholic hepatitis.
- viral hepatitis panel neg
- monitor
Hypomagnesemia
Hypokalemia
monitor and replete as necessary
Macrocytosis
b12, folate wnl
iron studies appreciated Iron non-deficient
Anxiety/Depression
- Reports increasing depression, not taking her medications
- Resumed home lexapro
- Consult Psych appreciated buspirone discontinued in favor of increased Wellbutrin, wellbutrin later decreased d/t concerns contributing to patient's deconditioning.
HTN
-likely exacerbated by ETOH withdrawal effect since improved
-cont amlodipine 5mg daily. losartan 100mg daily discontinued as per nephro d/t hyperkalemia (bp remains at goal without)
-prn Hydralazine
Cigarette nicotine dependence
-continue nicotine patch
Severe protein calorie malnutrition
BMI 17.9
ensure supplement daily added to diet
DVT prophylaxis�Lovenox
Full code
Medically stable for discharge pending SNF placement
Total time spent to see the patient on the floor, examine the patient, review data and lab results, discuss treatment plan with patient, nursing staff around 40 minutes.
Anticipated Discharge: Within 24 hours
Subjective/Interval History
-
Date of Service: May 06, 2024
Mental status significantly improved. cognizant of mother's passing, no longer needs to be reminded.
Objective Data
-
Vital Signs:
Vital Signs
Temp Pulse Resp BP Pulse Ox
97.6 F 78 14 108/67 93
05/05/24 23:25 05/05/24 23:25 05/05/24 23:25 05/05/24 23:25 05/05/24 23:25
I&O
05/05/24 05/06/24 05/07/24
06:59 06:59 06:59
Intake Total 1710 / 1710 820 / 820
Balance 1710 / 1710 820 / 820
[2024-05-06] MEDS: VITAMIN B1 100 MG PO ×2 (08:07→21:36)
[2024-05-06] MEDS: WELLBUTRIN XL (24 hour extended release) 150 MG PO (08:07)
[2024-05-06] MEDS: PROTONIX 40 MG PO (08:07)
[2024-05-06] MEDS: FOLVITE 1 MG PO (08:07)
[2024-05-06] MEDS: ASACOL, DELZICOL DR 800 MG PO ×3 (08:07→21:33)
[2024-05-06] MEDS: LEXAPRO 10 MG PO (08:08)
[2024-05-06] MEDS: NICODERM TRANSDERMAL 14 MG TRANSDERM (08:08)
[2024-05-06] MEDS: THERAGRAN 1 TABLET PO (08:08)
[2024-05-06] MEDS: CLARITIN 10 MG PO (08:08)
[2024-05-06] MEDS: NORVASC 5 MG PO (08:11)
--- NOTE | 2024-05-06 09:25 | CM ---
Addendum entered by RIAN Carreon 05/06/24 13:31:
Admissions at [facility] made aware of appeal process.
Addendum entered by RIAN Carreon 05/06/24 09:34:
Placed a call to Tone in admissions at [facility], however metals sales representative that answered stated that he is not usually in his office until 9:30. Will attempt another call later this morning.
Original Note:
Received a call from Karla at [facility] this morning who stated that case# [id number] was denied as the nurses medical assistants phlebotomists did not feel that this patient needs SNF.
Messaged Dr. Richardson to determine whether he will appeal. # For appeal [phone] (appeal must be filed within three business days)
Will call facility to update and determine if decision is not overturned, if they can take patient terminal clerk.
Plan: Case management will continue to follow and assist with discharge planning. Hopeful skilled nursing care vrs SNF is decision can be overturned.
--- NOTE | 2024-05-06 11:08 | W.PN.UPDATE ---
Update Note
Progress Note Update
patient seen chart reviewed. discussed with nursing and dr box the patient presents with much improved mentation. she wants to go home. she said she feels her son just does not want him in the home . he resides in his gm's home which is now
belonging to her since her mother and she intends to live there. says there are a number of bedrooms and room for both of them. she says she can remain sober and is very opposed to rehab for etoh. we had been suggesting snf but at least one
facility is saying she does not need snf. this is being discussed. physical therapy to see her today. if they feel she no longer needs snf then we may be able to dc her to home as today she does appear cognitively much better.
[2024-05-06] MEDS: ATIVAN 0.5 MG PO ×2 (13:32→21:35)
[2024-05-06 14:55] VITALS: BP 141/89; BP 150/101; PULSE 90; O2SAT 98
[2024-05-06 15:00] VITALS: BP 136/91
[2024-05-06] MEDS: LOVENOX 40 MG SC (17:24)
[2024-05-06 19:00] VITALS: BP 120/83
[2024-05-06 23:06] VITALS: BP 120/70
[2024-05-07 07:00] VITALS: BP 155/101
--- NOTE | 2024-05-07 07:27 | W.PN.HOSP.TC ---
Today's Communication/Plan
-
Discharge planning
Pending SNF placement
patient however appears to be improving
pending PT/OT re-assessment, possible home rehab instead if improved
Assessment / Plan
Assessment / Plan
Physical Exam
General: Thin, no acute distress
HEENT: Normocephalic, Atraumatic, EOMI, MMM
Respiratory: Clear to Auscultation bilaterally
Cardiac: Normal S1/S2, Regular Rate and Rhythm
GI: Soft, tender at lower quadrants, Nondistended, Normal Bowel Sounds
Extremities: No Clubbing, Cyanosis, or Edema
Neuro: Awake alert conversant coherent
Psych: Calm
Derm: No Visible lesions
58F ETOH abuse anxiety/depression HTN Tobacco abuse
Segmental colitis associated with diverticulosis
Abdominal pain/nausea/loose stools
-Reports a history of Crohn's disease in her family
-Denies blood at this time
-Abd CT -Mild sigmoid diverticulosis. No evidence of acute diverticulitis. Disproportionate degree of slightly asymmetric wall thickening. Although likely related to inflammatory changes of diverticulosis, it would be difficult to exclude an
underlying neoplastic process with certainty. Recommend correlation with colonoscopy.
-Abd XR neg for constipation. Started on Bentyl 04/27
-Stool studies negative for C. difficile/norovirus, stool culture neg
-04/29 c-scope shows segmental colitis associated with diverticulosis, possible stricture
-GI recommends Gastrografin enema planned for today
-Started on mesalamine 04/29
Ambulatory Dysfunction
Physical Deconditioning
- Uses walker/cane at home
- CT and MRI brain no acute abn's
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
- Basic labs relatively unremarkable. TSH wnl. B12 wnl
- PT/OT - rec STR
- Patient lives with son who is refusing to take her home
Acute toxic metabolic encephalopathy
Acute urinary tract infection
- completed 5 days Ceftriaxone
Alcohol Abuse
- Drinking 3-4 days per week, 3 glasses of wine per day, last drink 04/16 night
- ETOH level (-) on admission
- Suspect ETOH contributing to global cerebellar dysfunction and problem above
- ETOH cessation advised
- MV/FA/Thiamine. Ativan per [facility] protocol, thiamine briefly increased empirically to 200 mg IV TID given ongoing confusion, memory issues since transitioned back to oral with improvement
- Psych and CM consult appreciated
- Patient lives with son, who is adamant that she needs to go to inpatient alcohol rehab
- Patient confused needs to be reminded that her mother had months ago. Patient since improved
-Case management/bcares attempted inpatient alcohol rehab
-Patient however has updated PT/OT recommendations for SNF rehab will need to complete before inpt ETOH rehab (son aware and in agreement)
20 lb weight loss unintentional
Right adrenal adenoma
-CT chest/abd/pelvis w contrast appreciated
-Mild emphysematous lung changes.
-Multiple small pulmonary nodules, as described, measuring up to 5.3 mm. Some of the nodules appear hyperdense and/or calcified, consistent with calcified granulomas. Recommend follow-up in one year.
-Superior right hilar margin mild adenopathy measuring 1.4 cm. Nonspecific.
-Fatty infiltration of liver.
-Heterogeneous complex right adrenal mass measuring up to 2.6 cm. Nonspecific. Possible myelolipoma. Other possible considerations may include changes related to previous infection and/or hemorrhage. Adrenal tumor, such as pheochromocytoma may also
be considered in the proper clinical setting.
-Workup for pheochromocytoma negative, HIV neg
-Abdominal MRI shows right adrenal adenoma
-Appreciate oncology input, no findings to suggest malignancy
-Recommend repeat chest CT in 6�months to verify stability of lung nodules
Mild Elevated LFTs
- Likely alcoholic hepatitis.
- viral hepatitis panel neg
- monitor
Hypomagnesemia
Hypokalemia
monitor and replete as necessary
Macrocytosis
b12, folate wnl
iron studies appreciated Iron non-deficient
Anxiety/Depression
- Reports increasing depression, not taking her medications
- Resumed home lexapro
- Consult Psych appreciated buspirone discontinued in favor of increased Wellbutrin, wellbutrin later decreased d/t concerns contributing to patient's deconditioning.
HTN
-likely exacerbated by ETOH withdrawal effect since improved
-cont amlodipine 5mg daily. losartan 100mg daily discontinued as per nephro d/t hyperkalemia (bp remains at goal without)
-prn Hydralazine
Cigarette nicotine dependence
-continue nicotine patch
Severe protein calorie malnutrition
BMI 17.9
ensure supplement daily added to diet
DVT prophylaxis�Lovenox
Full code
Medically stable for discharge pending SNF placement, ambulatory and mental status however appear improved patient prefers home rehab if feasible.
Total time spent to see the patient on the floor, examine the patient, review data and lab results, discuss treatment plan with patient, nursing staff around 40 minutes.
Anticipated Discharge: 24 - 48 hours
Subjective/Interval History
-
Date of Service: May 07, 2024
AOx3, mental status improved appetite significantly improved tolerating diet. Patient able to ambulate with walker independently.
Objective Data
-
Vital Signs:
Vital Signs
Temp Pulse Resp BP Pulse Ox
98.2 F 70 18 120/70 92
05/06/24 23:06 05/06/24 23:06 05/06/24 23:06 05/06/24 23:06 05/06/24 23:06
I&O
05/06/24 05/07/24 05/08/24
06:59 06:59 06:59
Intake Total 820 / 820 800 / 800
Balance 820 / 820 800 / 800
[2024-05-07] MEDS: ASACOL, DELZICOL DR 800 MG PO ×3 (07:53→21:07)
[2024-05-07] MEDS: NICODERM TRANSDERMAL 14 MG TRANSDERM (07:54)
[2024-05-07] MEDS: WELLBUTRIN XL (24 hour extended release) 150 MG PO (07:55)
[2024-05-07] MEDS: THERAGRAN 1 TABLET PO (07:55)
[2024-05-07] MEDS: PROTONIX 40 MG PO (07:55)
[2024-05-07] MEDS: VITAMIN B1 100 MG PO ×2 (07:55→21:07)
[2024-05-07] MEDS: CLARITIN 10 MG PO (07:55)
[2024-05-07] MEDS: LEXAPRO 10 MG PO (07:56)
[2024-05-07] MEDS: NORVASC 5 MG PO (07:56)
[2024-05-07] MEDS: FOLVITE 1 MG PO (07:56)
[2024-05-07 15:00] VITALS: BP 159/88
[2024-05-07] MEDS: ATIVAN 0.5 MG PO (15:03)
[2024-05-07] MEDS: LOVENOX 40 MG SC (17:42)
[2024-05-07 23:40] VITALS: BP 148/87
[2024-05-08 07:00] VITALS: BP 126/91
--- NOTE | 2024-05-08 07:16 | W.PN.HOSP.TC ---
Today's Communication/Plan
-
Medically stable for discharge pending SNF placement
Ambulatory and mental status continue to improve patient may be safe for home rehab later on
At this time some confusion/memory issues and significant ambulatory dysfunction persist posing significant safety concerns for home
Following lengthy conversation with patient regarding Home vs SNF patient appears to be agreeable to staying at this time until SNF placement or further improvement/safe for home rehab
Agitation confusion forgetfulness later in day requiring ativan prn poses concern for
Assessment / Plan
Assessment / Plan
Physical Exam
General: Thin, no acute distress
HEENT: Normocephalic, Atraumatic, EOMI, MMM
Respiratory: Clear to Auscultation bilaterally
Cardiac: Normal S1/S2, Regular Rate and Rhythm
GI: Soft, tender at lower quadrants, Nondistended, Normal Bowel Sounds
Extremities: No Clubbing, Cyanosis, or Edema
Neuro: AOx2-3 difficulty reporting year
Psych: Calm acknowledges mother has (previously needed to be reminded) unclear as to when she however needs to be reminded passing was months ago. Patient admits she tries not to think of it
Derm: No Visible lesions
58F ETOH abuse anxiety/depression HTN Tobacco abuse
Segmental colitis associated with diverticulosis
Abdominal pain/nausea/loose stools
-Reports a history of Crohn's disease in her family
-Denies blood at this time
-Abd CT -Mild sigmoid diverticulosis. No evidence of acute diverticulitis. Disproportionate degree of slightly asymmetric wall thickening. Although likely related to inflammatory changes of diverticulosis, it would be difficult to exclude an
underlying neoplastic process with certainty. Recommend correlation with colonoscopy.
-Abd XR neg for constipation. Started on Bentyl 04/27
-Stool studies negative for C. difficile/norovirus, stool culture neg
-04/29 c-scope shows segmental colitis associated with diverticulosis, possible stricture
-GI recommends Gastrografin enema planned for today
-Started on mesalamine 04/29
Ambulatory Dysfunction
Physical Deconditioning
- Uses walker/cane at home
- CT and MRI brain no acute abn's
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
- Basic labs relatively unremarkable. TSH wnl. B12 wnl
- PT/OT - rec STR
- Patient lives with son who is refusing to take her home
Acute toxic metabolic encephalopathy
Acute urinary tract infection
- completed 5 days Ceftriaxone
Alcohol Abuse
- Drinking 3-4 days per week, 3 glasses of wine per day, last drink 04/16 night
- ETOH level (-) on admission
- Suspect ETOH contributing to global cerebellar dysfunction and problem above
- ETOH cessation advised
- MV/FA/Thiamine. Ativan per [facility] protocol, thiamine briefly increased empirically to 200 mg IV TID given ongoing confusion, memory issues since transitioned back to oral with improvement
- Psych and CM consult appreciated
- Patient lives with son, who is adamant that she needs to go to inpatient alcohol rehab
- Patient confused needs to be reminded that her mother had months ago. Patient since improved
-Case management/bcares attempted inpatient alcohol rehab
-Patient however has updated PT/OT recommendations for SNF rehab will need to complete before inpt ETOH rehab (son aware and in agreement)
20 lb weight loss unintentional
Right adrenal adenoma
-CT chest/abd/pelvis w contrast appreciated
-Mild emphysematous lung changes.
-Multiple small pulmonary nodules, as described, measuring up to 5.3 mm. Some of the nodules appear hyperdense and/or calcified, consistent with calcified granulomas. Recommend follow-up in one year.
-Superior right hilar margin mild adenopathy measuring 1.4 cm. Nonspecific.
-Fatty infiltration of liver.
-Heterogeneous complex right adrenal mass measuring up to 2.6 cm. Nonspecific. Possible myelolipoma. Other possible considerations may include changes related to previous infection and/or hemorrhage. Adrenal tumor, such as pheochromocytoma may also
be considered in the proper clinical setting.
-Workup for pheochromocytoma negative, HIV neg
-Abdominal MRI shows right adrenal adenoma
-Appreciate oncology input, no findings to suggest malignancy
-Recommend repeat chest CT in 6�months to verify stability of lung nodules
Mild Elevated LFTs
- Likely alcoholic hepatitis.
- viral hepatitis panel neg
- monitor
Hypomagnesemia
Hypokalemia
monitor and replete as necessary
Macrocytosis
b12, folate wnl
iron studies appreciated Iron non-deficient
Anxiety/Depression
- Reports increasing depression, not taking her medications
- Resumed home lexapro
- Consult Psych appreciated buspirone discontinued in favor of increased Wellbutrin, wellbutrin later decreased d/t concerns contributing to patient's deconditioning.
HTN
-likely exacerbated by ETOH withdrawal effect since improved
-cont amlodipine 5mg daily. losartan 100mg daily discontinued as per nephro d/t hyperkalemia (bp remains at goal without)
-prn Hydralazine
Cigarette nicotine dependence
-continue nicotine patch
Severe protein calorie malnutrition
BMI 17.9
ensure supplement daily added to diet
DVT prophylaxis�Lovenox
Full code
Medically stable for discharge pending SNF placement, ambulatory and mental status however appear to be improving patient prefers home rehab if feasible.
Total time spent to see the patient on the floor, examine the patient, review data and lab results, discuss treatment plan with patient, nursing staff around 40 minutes.
Anticipated Discharge: 24 - 48 hours
Subjective/Interval History
-
Date of Service: May 08, 2024
AOx2-3 patient had some difficulty reporting correct year. Acknowledges that her mother but has difficulty remembering when reports last week or recently. Reminded her mother in December 2023 around labor day (as per son's
report).
Objective Data
-
Vital Signs:
Vital Signs
Temp Pulse Resp BP Pulse Ox
98.4 F 80 17 148/87 96
09/21/24 23:40 05/07/24 23:40 05/07/24 23:40 05/07/24 23:40 05/07/24 23:40
I&O
05/07/24 05/08/24 05/09/24
06:59 06:59 06:59
Intake Total 800 / 800 1100 / 1100
Balance 800 / 800 1100 / 1100
[2024-05-08] MEDS: FOLVITE 1 MG PO (07:54)
[2024-05-08] MEDS: NORVASC 5 MG PO (07:54)
[2024-05-08] MEDS: ASACOL, DELZICOL DR 800 MG PO ×3 (07:54→21:20)
[2024-05-08] MEDS: CLARITIN 10 MG PO (07:54)
[2024-05-08] MEDS: THERAGRAN 1 TABLET PO (07:54)
[2024-05-08] MEDS: PROTONIX 40 MG PO (07:54)
[2024-05-08] MEDS: LEXAPRO 10 MG PO (07:54)
[2024-05-08] MEDS: WELLBUTRIN XL (24 hour extended release) 150 MG PO (07:54)
[2024-05-08] MEDS: NICODERM TRANSDERMAL 14 MG TRANSDERM (07:55)
[2024-05-08] MEDS: VITAMIN B1 100 MG PO ×2 (07:55→21:20)
--- NOTE | 2024-05-08 12:41 | W.PN.UPDATE ---
Update Note
Progress Note Update
Psychiatry follow up. Patient is focused on discharge home. She does not want D&A treatment or SNF at this time. She is sad about the loss of her mom but denies feeling depressed. She reports sleeping and eating ok.
MSE- disheveled. good eye contact. fluent speech. focused on discharge. denies SI/HI/AVH. no delusions. poor I/J
A/P- 58 yo female with alcohol use disorder and depression. continue current medications. could benefit from rehab but cannot force D&A treatment. psychiatry will sign off. please reach out to team with further questions or concerns.
[2024-05-08] MEDS: ATIVAN 0.5 MG PO (14:17)
[2024-05-08 15:00] VITALS: BP 125/86
[2024-05-08] MEDS: LOVENOX 40 MG SC (16:42)
[2024-05-08 22:55] VITALS: BP 132/81
[2024-05-09 07:23] VITALS: BP 132/77
[2024-05-09] MEDS: LEXAPRO 10 MG PO (07:52)
[2024-05-09] MEDS: VITAMIN B1 100 MG PO ×2 (07:52→20:57)
[2024-05-09] MEDS: ASACOL, DELZICOL DR 800 MG PO ×3 (07:52→22:56)
[2024-05-09] MEDS: WELLBUTRIN XL (24 hour extended release) 150 MG PO (07:52)
[2024-05-09] MEDS: PROTONIX 40 MG PO (07:53)
[2024-05-09] MEDS: THERAGRAN 1 TABLET PO (07:53)
[2024-05-09] MEDS: NORVASC 5 MG PO (07:53)
[2024-05-09] MEDS: FOLVITE 1 MG PO (07:53)
[2024-05-09] MEDS: NICODERM TRANSDERMAL 14 MG TRANSDERM (07:53)
[2024-05-09] MEDS: CLARITIN 10 MG PO (07:53)
--- NOTE | 2024-05-09 08:56 | W.PN.HOSP.TC ---
Today's Communication/Plan
-
see bold
Assessment / Plan
Assessment / Plan
Physical Exam
General: Thin, no acute distress
HEENT: Normocephalic, Atraumatic, EOMI, MMM
Respiratory: Clear to Auscultation bilaterally
Cardiac: Normal S1/S2, Regular Rate and Rhythm
GI: Soft, tender at lower quadrants, Nondistended, Normal Bowel Sounds
Extremities: No Clubbing, Cyanosis, or Edema
Neuro: AOx2-3 difficulty reporting year
Psych: Calm acknowledges mother has (previously needed to be reminded) unclear as to when she however needs to be reminded passing was months ago. Patient admits she tries not to think of it
Derm: No Visible lesions
58F ETOH abuse anxiety/depression HTN Tobacco abuse
Segmental colitis associated with diverticulosis
Abdominal pain/nausea/loose stools
-Reports a history of Crohn's disease in her family
-Denies blood at this time
-Abd CT -Mild sigmoid diverticulosis. No evidence of acute diverticulitis. Disproportionate degree of slightly asymmetric wall thickening. Although likely related to inflammatory changes of diverticulosis, it would be difficult to exclude an
underlying neoplastic process with certainty. Recommend correlation with colonoscopy.
-Abd XR neg for constipation. Started on Bentyl 04/27
-Stool studies negative for C. difficile/norovirus, stool culture neg
-04/29 c-scope shows segmental colitis associated with diverticulosis, possible stricture
-S/p Gastrografin enema 05/02, negative for stricture/mass
-Started on mesalamine 04/29, tolerating
Ambulatory Dysfunction
Physical Deconditioning
- Uses walker/cane at home
- CT and MRI brain no acute abn's
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
- Basic labs relatively unremarkable. TSH wnl. B12 wnl
- PT/OT - rec STR
- Patient lives with son who is refusing to take her home
Acute toxic metabolic encephalopathy
Acute urinary tract infection
- completed 5 days Ceftriaxone
Alcohol Abuse
- Drinking 3-4 days per week, 3 glasses of wine per day, last drink 04/16 night
- ETOH level (-) on admission
- Suspect ETOH contributing to global cerebellar dysfunction and problem above
- ETOH cessation advised
- MV/FA/Thiamine. Ativan per [facility] protocol, thiamine briefly increased empirically to 200 mg IV TID given ongoing confusion, memory issues since transitioned back to oral with improvement
- Psych and CM consult appreciated
- Patient lives with son, who is adamant that she needs to go to inpatient alcohol rehab
- Patient confused needs to be reminded that her mother had months ago. Patient since improved
-Case management/bcares attempted inpatient alcohol rehab
-Patient however has updated PT/OT recommendations for SNF rehab will need to complete before inpt ETOH rehab (son aware and in agreement)
20 lb weight loss unintentional
Right adrenal adenoma
-CT chest/abd/pelvis w contrast appreciated
-Mild emphysematous lung changes.
-Multiple small pulmonary nodules, as described, measuring up to 5.3 mm. Some of the nodules appear hyperdense and/or calcified, consistent with calcified granulomas. Recommend follow-up in one year.
-Superior right hilar margin mild adenopathy measuring 1.4 cm. Nonspecific.
-Fatty infiltration of liver.
-Heterogeneous complex right adrenal mass measuring up to 2.6 cm. Nonspecific. Possible myelolipoma. Other possible considerations may include changes related to previous infection and/or hemorrhage. Adrenal tumor, such as pheochromocytoma may also
be considered in the proper clinical setting.
-Workup for pheochromocytoma negative, HIV neg
-Abdominal MRI shows right adrenal adenoma
-Appreciate oncology input, no findings to suggest malignancy
-Recommend repeat chest CT in 6�months to verify stability of lung nodules
Mild Elevated LFTs
- Likely alcoholic hepatitis.
- viral hepatitis panel neg
- monitor
Hypomagnesemia
Hypokalemia
monitor and replete as necessary
Macrocytosis
b12, folate wnl
iron studies appreciated Iron non-deficient
Anxiety/Depression
- Reports increasing depression, not taking her medications
- Resumed home lexapro
- Consult Psych appreciated buspirone discontinued in favor of increased Wellbutrin, wellbutrin later decreased d/t concerns contributing to patient's deconditioning.
HTN
-likely exacerbated by ETOH withdrawal effect since improved
-cont amlodipine 5mg daily. losartan 100mg daily discontinued as per nephro d/t hyperkalemia (bp remains at goal without)
-prn Hydralazine
Cigarette nicotine dependence
-continue nicotine patch
Severe protein calorie malnutrition
BMI 17.9
ensure supplement daily added to diet
DVT prophylaxis�Lovenox
Full code
Medically stable for discharge pending SNF placement, ambulatory and mental status however appear to be improving patient prefers home rehab if feasible.
Total time spent to see the patient on the floor, examine the patient, review data and lab results, discuss treatment plan with patient, nursing staff around 35 minutes.
Anticipated Discharge: Within 24 hours
Subjective/Interval History
-
Date of Service: May 09, 2024
Patient continues to think that her mother is alive when her mother passed in December. No abdominal pain, no nausea, no vomiting. No diarrhea.
Objective Data
-
Vital Signs:
Vital Signs
Temp Pulse Resp BP Pulse Ox
98.0 F 72 17 132/77 97
05/09/24 07:23 05/09/24 07:53 05/09/24 07:23 05/09/24 07:53 05/09/24 07:23
I&O
05/08/24 05/09/24 05/10/24
06:59 06:59 06:59
Intake Total 1100 / 1100 960 / 960
Balance 1100 / 1100 960 / 960
[2024-05-09] MEDS: DRISDOL (VITAMIN D2) 50000 UNITS PO (09:07)
--- NOTE | 2024-05-09 14:01 | CM ---
Reviewed chart, spoke with Tone in admissions at [facility] who still has a bed for patient. Messaged CM MD to determine if there is any update as to whether there has been a determination regarding the denial being overturned. Patient has until
tomorrow to appeal/cm on her behalf.
Plan: Case management will continue to follow and assist with discharge planning. SNF [facility].
[2024-05-09] MEDS: ATIVAN 0.5 MG PO (14:50)
[2024-05-09 15:38] VITALS: BP 132/91
[2024-05-09] MEDS: LOVENOX 40 MG SC (18:16)
[2024-05-09 23:52] VITALS: BP 113/68
--- NOTE | 2024-05-10 07:26 | W.PN.HOSP.TC ---
Today's Communication/Plan
-
Discharge home today
Assessment / Plan
Assessment / Plan
Physical Exam
General: Thin, no acute distress
HEENT: Normocephalic, Atraumatic, EOMI, MMM
Respiratory: Clear to Auscultation bilaterally
Cardiac: Normal S1/S2, Regular Rate and Rhythm
GI: Soft, tender at lower quadrants, Nondistended, Normal Bowel Sounds
Extremities: No Clubbing, Cyanosis, or Edema
Neuro: AOx2-3 difficulty reporting year
Psych: Calm acknowledges mother has (previously needed to be reminded) unclear as to when she however needs to be reminded passing was months ago. Patient admits she tries not to think of it
Derm: No Visible lesions
58F ETOH abuse anxiety/depression HTN Tobacco abuse
Segmental colitis associated with diverticulosis
Abdominal pain/nausea/loose stools
-Reports a history of Crohn's disease in her family
-Denies blood at this time
-Abd CT -Mild sigmoid diverticulosis. No evidence of acute diverticulitis. Disproportionate degree of slightly asymmetric wall thickening. Although likely related to inflammatory changes of diverticulosis, it would be difficult to exclude an
underlying neoplastic process with certainty. Recommend correlation with colonoscopy.
-Abd XR neg for constipation. Started on Bentyl 04/27
-Stool studies negative for C. difficile/norovirus, stool culture neg
-04/29 c-scope shows segmental colitis associated with diverticulosis, possible stricture
-S/p Gastrografin enema 05/02, negative for stricture/mass
-Started on mesalamine 04/29, tolerating -continue upon discharge
-Follow-up with GI in the office in 2-3weeks
-Medically stable for discharge today
Ambulatory Dysfunction
Physical Deconditioning
- Uses walker/cane at home
- CT and MRI brain no acute abn's
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
- Basic labs relatively unremarkable. TSH wnl. B12 wnl
- PT/OT - rec STR, insurance denied
- Will discharge home, will provide outpt PT script (pt does not have PCP)
Acute toxic metabolic encephalopathy
Acute urinary tract infection
- completed 5 days Ceftriaxone
Alcohol Abuse
- Drinking 3-4 days per week, 3 glasses of wine per day, last drink 04/16 night
- ETOH level (-) on admission
- Suspect ETOH contributing to global cerebellar dysfunction and problem above
- ETOH cessation advised
- MV/FA/Thiamine. Ativan per [facility] protocol, thiamine briefly increased empirically to 200 mg IV TID given ongoing confusion, memory issues since transitioned back to oral with improvement
- Psych and CM consult appreciated
- Patient lives with son, who is adamant that she needs to go to inpatient alcohol rehab
- Patient confused needs to be reminded that her mother had months ago. Patient since improved
-Case management/bcares attempted inpatient alcohol rehab
-Continue alcohol abstinence, needs intense outpatient therapy, follow-up with the [facility]
20 lb weight loss unintentional
Right adrenal adenoma
-CT chest/abd/pelvis w contrast appreciated
-Mild emphysematous lung changes.
-Multiple small pulmonary nodules, as described, measuring up to 5.3 mm. Some of the nodules appear hyperdense and/or calcified, consistent with calcified granulomas. Recommend follow-up in one year.
-Superior right hilar margin mild adenopathy measuring 1.4 cm. Nonspecific.
-Fatty infiltration of liver.
-Heterogeneous complex right adrenal mass measuring up to 2.6 cm. Nonspecific. Possible myelolipoma. Other possible considerations may include changes related to previous infection and/or hemorrhage. Adrenal tumor, such as pheochromocytoma may also
be considered in the proper clinical setting.
-Workup for pheochromocytoma negative, HIV neg
-Abdominal MRI shows right adrenal adenoma
-Appreciate oncology input, no findings to suggest malignancy
-Recommend repeat chest CT in 6�months to verify stability of lung nodules
Mild Elevated LFTs
- Likely alcoholic hepatitis.
- viral hepatitis panel neg
- monitor
Hypomagnesemia
Hypokalemia
monitor and replete as necessary
Macrocytosis
b12, folate wnl
iron studies appreciated Iron non-deficient
Anxiety/Depression
- Reports increasing depression, not taking her medications
- Resumed home lexapro
- Consult Psych appreciated buspirone discontinued in favor of increased Wellbutrin, wellbutrin later decreased d/t concerns contributing to patient's deconditioning.
HTN
-likely exacerbated by ETOH withdrawal effect since improved
-cont amlodipine 5mg daily. losartan 100mg daily discontinued as per nephro d/t hyperkalemia (bp remains at goal without)
-prn Hydralazine
Cigarette nicotine dependence
-continue nicotine patch
Severe protein calorie malnutrition
BMI 17.9
ensure supplement daily added to diet
DVT prophylaxis�Lovenox
Full code
Anticipated Discharge: Today
Subjective/Interval History
-
Date of Service: May 10, 2024
Had 1 loose bowel movement yesterday. No abdominal pain, no nausea. She remembers that her mother passed in December. No fever.
Objective Data
-
Vital Signs:
Vital Signs
Temp Pulse Resp BP Pulse Ox
98.9 F 74 17 113/68 96
05/09/24 23:52 05/09/24 23:52 05/09/24 23:52 05/09/24 23:52 05/09/24 23:52
I&O
05/09/24 05/10/24 05/11/24
06:59 06:59 06:59
Intake Total 960 / 960 1200 / 1200
Balance 960 / 960 1200 / 1200
[2024-05-10 07:30] VITALS: BP 116/72
[2024-05-10] MEDS: WELLBUTRIN XL (24 hour extended release) 150 MG PO (08:02)
[2024-05-10] MEDS: ASACOL, DELZICOL DR 800 MG PO (08:02)
[2024-05-10] MEDS: VITAMIN B1 100 MG PO (08:03)
[2024-05-10] MEDS: FOLVITE 1 MG PO (08:03)
[2024-05-10] MEDS: LEXAPRO 10 MG PO (08:03)
[2024-05-10] MEDS: CLARITIN 10 MG PO (08:03)
[2024-05-10] MEDS: NORVASC 5 MG PO (08:04)
[2024-05-10] MEDS: NICODERM TRANSDERMAL 14 MG TRANSDERM (08:04)
[2024-05-10] MEDS: THERAGRAN 1 TABLET PO (08:04)
[2024-05-10] MEDS: PROTONIX 40 MG PO (08:04)
--- NOTE | 2024-05-10 09:51 | CM ---
Spoke with Dr. Grissom who stated that she will begin the appeal process. Will await determination. Admissions at [facility] updated.
Plan: Case management will continue to follow and assist with discharge planning. SNF vrs LTC.
--- NOTE | 2024-05-10 12:09 | W.DCSUMMARY ---
Discharge Summary
Discharge Data
Date of Admission: 04/24/24
Date of Discharge: 05/10/24
-
Pending Results: No
Hospital Course
Discharge diagnosis:
Alcohol abuse with dependency
Segmental colitis with associated diverticulosis
Abdominal pain/nausea/loose stools
Ambulatory dysfunction
Physical deconditioning
Acute toxic metabolic encephalopathy
Acute urinary tract infection
20 pound unintentional weight loss
Adrenal adenoma
Alcoholic hepatitis
Hypomagnesemia
Anxiety/depression
Essential hypertension
Cigarette nicotine dependency
Severe protein calorie malnutrition
Pulmonary nodules
Consults: GI, psychiatry, oncology, nephrology
Procedures:
04/29/2024 Colonoscopy
A localized area of moderately erythematous mucosa was found in the
sigmoid colon. Biopsies were taken with a cold forceps for histology.
Unable to get past this point - upper endoscope would loop. The peds
colonoscope could not even advance to the same area. This had the
appearance of SCAD (segmental colitis associated with diverticulosis).
There also could be a stricture in that area.
Brain MRI:
No evidence of acute intracranial abnormality.
Mild diffuse atrophy.
Mild to moderate T2 and FLAIR white matter hyperintensities, greatest adjacent to the atria of both lateral ventricles, as well as within the mitch. These hyperintensities are commonly seen with aging and usually attributed to small vessel ischemic
disease. They have not been shown to correlate with a focal neurologic deficit.
Abd MRI:
3 cm right adrenal gland mass with heterogeneous signal and enhancement. The presence of intracytoplasmic lipid would favor an adrenal adenoma. Recommend correlation with outside imaging if available. Otherwise, suggest continued imaging follow-up
to confirm stability.
CT chest/Abd/Pelvis:
Mild emphysematous lung changes.
Multiple small pulmonary nodules, as described, measuring up to 5.3 mm. Some of the nodules appear hyperdense and/or calcified, consistent with calcified granulomas. Recommend follow-up in one year.
Superior right hilar margin mild adenopathy measuring 1.4 cm. Nonspecific.
Fatty infiltration of liver.
Heterogeneous complex right adrenal mass measuring up to 2.6 cm. Nonspecific. Possible myelolipoma. Other possible considerations may include changes related to previous infection and/or hemorrhage. Adrenal tumor, such as pheochromocytoma may also
be considered in the proper clinical setting.
Mild sigmoid diverticulosis. No evidence of acute diverticulitis. Disproportionate degree of slightly asymmetric wall thickening. Although likely related to inflammatory changes of diverticulosis, it would be difficult to exclude an underlying
neoplastic process with certainty. Recommend correlation with colonoscopy.
Gastrografin enema:
There are sigmoid diverticula. There is no evidence of a stricture or mass.
Hospital course:
58-year-old female with a past medical history of alcohol abuse with dependency, hypertension, and anxiety/depression presented with worsening weakness and ambulatory dysfunction. This is multifactorial in nature. She drinks 3-4 glasses of wine
each day, 7 days a week.
Patient was seen in conjunction with psychiatry. Psychiatry recommends Wellbutrin 150 mg p.o. daily, and Effexor 10 mg daily.
Patient reports a 20 pound unintentional weight loss, headaches, flushing. She was seen in conjunction with nephrology. She was worked up for pheochromocytoma, and that was ruled out. Patient was seen in conjunction with oncology. Cancer workup
was negative. Her CT of the chest/abdomen/pelvis shows that she has pulmonary nodules. She needs a follow-up chest CT in [address] of the chest/abdomen/pelvis also shows an adrenal mass. Abdominal MRI confirms that this is an adrenal
adenoma. HIV was also negative. Suspect her weight loss is secondary to her alcohol abuse, and GI symptoms.
Patient reports intermittent nausea, abdominal pain, with loose stools. She was seen in conjunction with GI. Colonoscopy showed Segmental colitis with associated diverticulosis. Patient was started on and will be discharged on mesalamine 800 mg 3
times a day. Barium enema was negative for or mass stricture.
Patient also had acute toxic metabolic encephalopathy. She was treated for an acute urinary tract infection with 5 days of antibiotics.
She also received folic acid and thiamine replacement due to her history of alcohol abuse with dependency. She will be discharged on thiamine supplements and multivitamin with folic acid.
Patient has hypertension. Her blood pressure was on the soft side. Her amlodipine was reduced to 5 mg daily, from 10 mg daily.
Patient was seen in conjunction with PT, who recommended short-term rehab. Her son insisted that the hospital set her up with either short-term rehab, or acute inpatient alcohol rehab. Patient declines acute inpatient alcohol rehab. She is
competent to make her own medical decisions. Her insurance denied short-term rehab. Patient wished to go home. She was given a prescription for outpatient PT. She is medically stable for discharge home. She needs to establish care with a PCP
and follow-up in 1 week. She also needs to follow-up at the [facility] for intense outpatient alcohol rehab. She has been counseled extensively to abstain from drinking alcohol. She also needs to follow-up with GI in the office in 2-3
weeks, and gynecology.
Disposition: Home self-care (patient does not have a PCP, unable to get home VN or PT)
Discharge planning: Required 65 minutes
Discharge Plan
-
Patient Disposition: Home with Home Care
Discharge Diagnosis/Procedures: Ambulatory Dysfunction
Alcohol Use Disorder
Unexplained weight loss
Underweight
Failure to Thrive
Depression
Right adrenal adenoma
Hypertension
Pulmonary Nodules
Diverticulosis
Condition: Fair
Diet: Regular
Activity: As tolerated
Driving Restrictions: Not until seen by your Dr
Bathing Restrictions: None
Others Tests: Repeat CT chest with primary care provider in 1 year of discharge to follow up on pulmonary nodules
Other Services: PT and OT
Activity Restrictions/Additional Instructions:
Please follow-up with your primary care doctor in 1 week, and psychiatry in 2-3 weeks.
Maintain abstinence from alcohol.
Losartan has been discontinued due to hyperkalemia and relatively low pressures.
Amlodipine has been reduced to 5 mg daily due to low pressures.
Magnesium supplementation prescribed due to deficiency.
Multivitamin prescribed to promote nutrition. Available over the counter.
Nicotine patches prescribed to promote smoking cessation. Also available over the counter
Please take medications as prescribed/recommended and follow up with primary care provider and/or other healthcare provider involved in your care for refills and/or further adjustment to your medication regimen as necessary.
It is also recommended that you follow up with outpatient alcohol rehab in <1 week of discharge. It is strongly advised that you avoid further alcohol or tobacco use as usage will likely lead to overall worsening of your condition- increased risk
of morbidity/mortality.
Referrals:
Andree Farley DO [Active] - in one to two weeks
David Cabral [Active] - in two to four weeks
Sheela Sosa, [Active] - in two to three weeks
UNKNOWN - PT DOES,NOT KNOW [Family Provider] -
Prescriptions:
New
nicotine 14 mg/24 hr Patch 24 Hour
14 mg transdermal DAILY 7 Days Qty: 7 0RF
magnesium oxide 500 mg magnesium Tablet
500 mg PO DAILY 30 Days Qty: 30 0RF
multivitamin with folic acid [Tab-A-Jose] 400 mcg Tablet
1 tab PO DAILY 30 Days Qty: 30 0RF
amlodipine 5 mg tablet
5 mg PO DAILY 30 Days Qty: 30 0RF
mesalamine 400 mg Capsule (With Del Rel Tablets)
800 mg PO TID 30 Days Qty: 180 0RF
thiamine HCl (vitamin B1) 100 mg Tablet
100 mg PO BID 30 Days Qty: 60 0RF
Continued
fexofenadine 180 mg Tablet
180 mg PO DAILY
pantoprazole 40 mg Tablet,Delayed Release (Dr/Ec)
40 mg PO DAILY
ergocalciferol (vitamin D2) [Vitamin D2] 1,250 mcg (50,000 unit) Capsule
1,250 mcg PO QWEEK
escitalopram oxalate 10 mg Tablet
10 mg PO DAILY
bupropion HCl 150 mg Tablet Extended Release 24 Hr
150 mg PO DAILY
Discontinued
amlodipine 10 mg Tablet
10 mg PO DAILY
buspirone 7.5 mg Tablet
7.5 mg PO TID
losartan 100 mg Tablet
100 mg PO DAILY
Discharge Orders:
Discharge Patient (As Directed); Ordered 05/10/24
Ordered By: Tu Myrick
Discharge Date and Time
Discharge Date/Time: 05/10/24 15:52
Print Language: FRISIAN
--- NOTE | 2024-05-10 13:11 | CM ---
Received notification from patient's RN that patient's son will pick patient up today @ 16:00 and has agreed to supervise in home. Patient stated that she does have a PCP but is unsure of name. Attempts were made to locate through general address in
[place] but was not found. Patient advised to call PCP when she gets home if she wants VN as she stated that she would have information about provider there. Patient had no further concerns.
Plan: Case management will continue to follow and assist with discharge planning. Home with son.
[2024-05-10 15:00] VITALS: BP 131/82
== END 2024-05-10 15:52 | disposition home or self-care (01) | DRG 377 ==
LOC: 3 WEST ACU 09:48
PROVIDERS: Emergency Medicine; Internal Medicine; Internal Medicine Gastroenterology; Nurse Practitioner Adult Health; ADMITTING PHYSICIAN Internal Medicine; ATTENDING PHYSICIAN Family Medicine; CONSULT PHYSICIAN Internal Medicine; CONSULT PHYSICIAN Specialist; EMERGENCY PHYSICIAN Emergency Medicine; OTHER PHYSICIAN Internal Medicine Hematology & Oncology; OTHER PHYSICIAN Psychiatry & Neurology Psychiatry
PROC: 0DBN8ZX Excision of Sigmoid Colon, Via Natural or Artificial Opening Endoscopic, Diagnostic (ICD-10-PCS; 2024-04-29)
DX: K57.31 Diverticulosis of large intestine without perforation or abscess with bleeding (principal); E43 Unspecified severe protein-calorie malnutrition; G92.8 Other toxic encephalopathy; F10.239 Alcohol dependence with withdrawal, unspecified; N39.0 Urinary tract infection, site not specified; Z68.1 Body mass index [BMI] 19.9 or less, adult; K70.10 Alcoholic hepatitis without ascites; K76.0 Fatty (change of) liver, not elsewhere classified; F32.9 Major depressive disorder, single episode, unspecified; I10 Essential (primary) hypertension; R62.7 Adult failure to thrive; F17.210 Nicotine dependence, cigarettes, uncomplicated; D35.01 Benign neoplasm of right adrenal gland; D75.89 Other specified diseases of blood and blood-forming organs; E83.42 Hypomagnesemia; E87.6 Hypokalemia; F41.9 Anxiety disorder, unspecified; K21.9 Gastro-esophageal reflux disease without esophagitis; K52.9 Noninfective gastroenteritis and colitis, unspecified; K64.4 Residual hemorrhoidal skin tags; R26.2 Difficulty in walking, not elsewhere classified; R91.8 Other nonspecific abnormal finding of lung field; Z59.86 Financial insecurity; Z79.899 Other long term (current) drug therapy
CPT/HCPCS: 88305; 70450; 70551; 71046; 71260; 74018; 74177; 74183; 74270; 80048; 80053; 80076; 80306; 81003; 81015; 82077; 82088; 82248; 82384; 82550; 82607; 82728; 82746; 82784; 83497; 83516; 83540; 83550; 83690; 83735; 83835; 83993; 84100; 84244; 84443; 85018; 85025; 85027; 85610; 85652; 85730; 86140; 86231; 86704; 86705; 86706; 86708; 86709; 86803; 87045; 87046; 87086; 87088; 87186; 87324; 87340; 87389; 87427; 87449; 87798; 89055; 93005; 96361; 96365; 96366; 97110; 97116; 97162; 97166; 97530; 97535; 99285; 99406; A9575; Q9967